=== PATIENT | female | born 1935 | race Caucasian/White ===

== ENCOUNTER 2016-06-13 17:05 | Inpatient (IN) | payer MEDICARE ==
[2016-06-13 19:07] LABS: Aty Lym Flag Slight; CH 27.9; CHCM 34.2; HCT 39.5 % (34.0-46.0); HDW 3.09; MCH 26.8 pg (25.0-35.0); MCHC 32.8 g/dL (31.0-37.0); MCV 81.8 fL (80.0-100.0); Mean Platelet Volume 6.8; RBC 4.83 m/uL (3.80-5.40); RDW 13.4 % (11.5-15.5); WBC (Perox) 2.97
[2016-06-13 19:22] LABS: Add Differential Manual Differential
[2016-06-13 19:24] LABS: Anion Gap 11 mmol/L; Blood Urea Nitrogen 14 mg/dL (7-17); Calcium 8.4 mg/dL (8.4-10.2); Carbon Dioxide 22 mmol/L (22-30); Chloride 103 mmol/L (98-107); Glucose 100 mg/dL (74-99); Non-African American GFR(MDRD) 53 (>60 ml/min/1.73 sqM); Nucleated Red Blood Cells 0 /100 WBC (0-0); Polychromasia Present; Potassium 5.3 mmol/L (3.5-5.1); Sodium 136 mmol/L (137-145); Total Cells Counted 100
[2016-06-13 19:44] LABS: Prothrombin Time >130.0 sec (9.0-12.0)
[2016-06-13 19:45] LABS: INR >10.0 (<1.1); Partial Thromboplastin Time 63.7 sec (22.0-30.0)
[2016-06-13] MEDS ORDERED: PHYTONADIONE ORAL 5 MG/5 ML ORAL.SYRG PO STA ×2 (19:48→23:24)
[2016-06-13] MEDS ORDERED: NALOXONE 0.4 MG/ML 1 ML VIAL IV PRN (21:54)
[2016-06-13] MEDS ORDERED: ALPRAZolam 0.25 MG TAB PO PRN (21:56)
[2016-06-13] MEDS ORDERED: SENNOSIDES-DOCUSATE SODIUM 1 EACH TAB PO PRN (21:56)
[2016-06-13] MEDS ORDERED: FUROSEMIDE 20 MG TAB PO PRN (21:56)
--- NOTE | 2016-06-13 21:57 | ED ---
General Adult HPI - General Chief complaint: Recheck/Abnormal Lab/Rx Stated complaint: abnormal labs Time Seen by Provider: 06/13/16 18:32 Source: patient, family Mode of arrival: wheelchair Limitations: no limitations - History of Present Illness Initial comments: This patient is an 80-year-old woman who presents to be evaluated for her elevated INR. Patient states she had gone for her routine testing and was found to be elevated. She denies having any bleeding. States that she feels about her usual self. -: hour(s) Improves with: none Worsens with: none Associated Symptoms: denies other symptoms - Related Data Home Medications Medication Instructions Recorded Confirmed ALPRAZolam [Xanax] 0.25 mg PO TID PRN 06/13/16 06/13/16 Atenolol [Tenormin] 25 mg PO DAILY 06/13/16 06/13/16 Cranberry Extract [Cranberry] 500 mg PO DAILY 06/13/16 06/13/16 Ergocalciferol [Vitamin D2] 50,000 unit PO WE 06/13/16 06/13/16 Furosemide [Lasix] 20 mg PO DAILY PRN 06/13/16 06/13/16 L.acidoph,Paracasei, B.lactis 1 cap PO DAILY 06/13/16 06/13/16 [Probiotic] Levothyroxine Sodium [Synthroid] 50 mcg PO DAILY 06/13/16 06/13/16 Potassium Chloride ER [K-Dur 20] 20 meq PO DAILY 06/13/16 06/13/16 Sennosides-Docusate Sodium 1 tab PO DAILY PRN 06/13/16 06/13/16 [Senokot-S] Sulfamethox-Tmp 800-160Mg [Bactrim 1 tab PO Q12HR 06/13/16 06/13/16 DS 800-160 mg] Warfarin [Coumadin] 5 mg PO DAILY 06/13/16 06/13/16 Allergies Allergy/AdvReac Type Severity Reaction Status Date / Time Penicillins Allergy Unknown Verified 06/13/16 18:51 steroids Allergy Unknown Uncoded 06/13/16 17:32 Review of Systems ROS Statement: Those systems with pertinent positive or pertinent negative responses have been documented in the HPI. ROS Other: All systems not noted in ROS Statement are negative. Constitutional: Denies: fever, chills Respiratory: Denies: cough, dyspnea Cardiovascular: Denies: chest pain, palpitations, edema Gastrointestinal: Denies: abdominal pain, nausea, vomiting Genitourinary: Denies: dysuria, hematuria Musculoskeletal: Denies: back pain Skin: Denies: rash Neurological: Denies: headache, weakness, numbness Past Medical History Past Medical History: Hypertension, Myocardial Infarction ([place]), Thyroid Disorder Additional Past Medical History / Comment(s): arthritis, sjogrens syndrome History of Any Multi-Drug Resistant Organisms: None Reported Past Surgical History: Hysterectomy, Orthopedic Surgery Past Psychological History: Anxiety, Depression Smoking Status: Never smoker Past Alcohol Use History: None Reported Past Drug Use History: None Reported General Exam Limitations: no limitations General appearance: alert, in no apparent distress Head exam: Present: atraumatic, normocephalic Eye exam: Present: normal appearance. Absent: scleral icterus, conjunctival injection ENT exam: Present: normal oropharynx Respiratory exam: Present: normal lung sounds bilaterally. Absent: respiratory distress, wheezes, rales, rhonchi Cardiovascular Exam: Present: regular rate, normal rhythm, normal heart sounds. Absent: systolic murmur, diastolic murmur, rubs, gallop GI/Abdominal exam: Present: soft. Absent: distended, tenderness, guarding, rebound Extremities exam: Present: normal inspection, normal capillary refill. Absent: pedal edema, calf tenderness Back exam: Absent: CVA tenderness (R), CVA tenderness (L) Neurological exam: Present: alert Skin exam: Present: warm, dry, intact, normal color. Absent: rash Course Vital Signs 06/13/16 06/13/16 06/13/16 17:26 18:39 20:00 Temperature 97.1 F L Pulse Rate 52 L 69 87 Respiratory 18 18 16 Rate Blood Pressure 114/72 116/62 118/68 O2 Sat by Pulse 93 L 93 L 97 Oximetry 06/13/16 06/13/16 21:00 21:53 Temperature 97 F L Pulse Rate 63 65 Respiratory 18 18 Rate Blood Pressure 116/63 111/59 O2 Sat by Pulse 97 99 Oximetry Medical Decision Making - Medical Decision Making Patient is an 80-year-old woman with INR greater than 10. Patient is given initial dose of vitamin K. She is not having any bleeding, will be admitted to ensure no - Lab Data Result diagrams: 06/13/16 18:45 06/13/16 18:45 Lab Results 06/13/16 06/13/16 06/13/16 Range/Units 18:45 18:45 18:45 WBC 3.0 L (3.8-10.6) k/uL RBC 4.83 (3.80-5.40) m/uL Hgb 13.0 (11.4-16.0) gm/dL Hct 39.5 (34.0-46.0) % MCV 81.8 (80.0-100.0) fL MCH 26.8 (25.0-35.0) pg MCHC 32.8 (31.0-37.0) g/dL RDW 13.4 (11.5-15.5) % Plt Count 333 (150-450) k/uL Neutrophils % (Manual) 72.0 % Lymphocytes % (Manual) 23.0 % Monocytes % (Manual) 5.0 % Neutrophils # (Manual) 2.2 (1.3-7.7) k/uL Lymphocytes # (Manual) 0.7 L (1.0-4.8) k/uL Monocytes # (Manual) 0.2 (0-1.0) k/uL Nucleated RBCs 0 (0-0) /100 WBC Polychromasia Present PT >130.0 H (9.0-12.0) sec INR >10.0 H* (<1.1) APTT 63.7 H (22.0-30.0) sec Sodium 136 L (137-145) mmol/L Potassium 5.3 H (3.5-5.1) mmol/L Chloride 103 (98-107) mmol/L Carbon Dioxide 22 (22-30) mmol/L Anion Gap 11 mmol/L BUN 14 (7-17) mg/dL Creatinine 1.00 (0.52-1.04) mg/dL Est GFR (MDRD) Af Amer >60 (>60 ml/min/1.73 sqM) Est GFR (MDRD) Non-Af 53 (>60 ml/min/1.73 sqM) Glucose 100 H (74-99) mg/dL Calcium 8.4 (8.4-10.2) mg/dL Disposition Clinical Impression: Warfarin-induced coagulopathy Disposition: ADMITTED IP TO THIS [facility] Condition: Fair
[2016-06-13 22:24] LABS: Partial Thromboplastin Time 62.8 sec (22.0-30.0)
[2016-06-13 22:36] LABS: Glucose,Whole Blood 90 mg/dL (75-99)
[2016-06-13 22:48] LABS: Prothrombin Time >130.0 sec (9.0-12.0)
[2016-06-13 22:49] LABS: INR >10.0 (<1.1)
[2016-06-13 22:58] VITALS: BMI 29.0
[2016-06-13] MEDS ORDERED: PHYTONADIONE 10 MG in SODIUM CHLORIDE 0.9% 50 ML IVPB STA (23:40)
[2016-06-14] MEDS: SODIUM CHLORIDE 0.9% 1,000 ML IV SCH ×2 (00:35→08:21)
[2016-06-14 05:21] LABS: Aty Lym Flag Slight; CH 27.5; CHCM 33.3; HCT 32.7 % (34.0-46.0); HDW 3.05; HGB 10.5 gm/dL (11.4-16.0); MCH 26.6 pg (25.0-35.0); MCHC 32.1 g/dL (31.0-37.0); MCV 82.9 fL (80.0-100.0); Mean Platelet Volume 6.8; RBC 3.94 m/uL (3.80-5.40); RDW 13.4 % (11.5-15.5); WBC 2.5 k/uL (3.8-10.6); WBC (Perox) 2.73
[2016-06-14 05:29] LABS: INR 2.7 (<1.1); Partial Thromboplastin Time 37.3 sec (22.0-30.0); Prothrombin Time 25.7 sec (9.0-12.0)
[2016-06-14 05:33] LABS: ALT 32 U/L (9-52); AST 22 U/L (14-36); Alkaline Phosphatase 41 U/L (38-126); Anion Gap 6 mmol/L; Blood Urea Nitrogen 12 mg/dL (7-17); Carbon Dioxide 24 mmol/L (22-30); Chloride 104 mmol/L (98-107); Glucose 83 mg/dL (74-99); Magnesium 2.1 mg/dL (1.6-2.3); Non-African American GFR(MDRD) 53 (>60 ml/min/1.73 sqM); Phosphorous 3.7 mg/dL (2.5-4.5); Potassium 4.9 mmol/L (3.5-5.1); Sodium 134 mmol/L (137-145); Total Bilirubin 0.4 mg/dL (0.2-1.3); Total Protein 5.4 g/dL (6.3-8.2)
[2016-06-14 05:44] LABS: Add Differential Manual Differential
[2016-06-14 05:45] LABS: Neutrophils % (A) 2232 %
[2016-06-14 05:48] LABS: Manual Review Performed; Nucleated Red Blood Cells 0 /100 WBC (0-0); Total Cells Counted 200
[2016-06-14 05:49] LABS: Ovalocytes Present; Reactive Lymphocytes Present
[2016-06-14] MEDS ORDERED: PANTOPRAZOLE 40 MG TABLET PO SCH (07:30)
--- NOTE | 2016-06-14 07:41 | XR ---
EXAMINATION TYPE: XR chest 1V DATE OF EXAM: 06/14/2016 6:41 AM CLINICAL HISTORY: Difficulty breathing . TECHNIQUE: Single AP portable upright view of the chest is obtained. COMPARISON: None FINDINGS: Cardiac silhouette size is at the upper limits of normal with atherosclerotic thoracic aor ta. There is some chronic parenchymal change without suspicious focal airspace opacity, pleural effus ion, or pneumothorax seen bilaterally. Osseous structures are demineralized. Multilevel spurring near thoracolumbar junction is present. IMPRESSION: No acute pulmonary process is evident.
[2016-06-14 08:20] VITALS: TEMP 97.3
[2016-06-14] MEDS: ATENOLOL 25 MG TAB PO SCH ×2 (08:21→09:06)
[2016-06-14] MEDS ORDERED: FAMOTIDINE 20 MG TAB PO SCH (09:00)
[2016-06-14] MEDS ORDERED: SULFAMETHOX-TMP 800-160MG 1 EACH TAB PO SCH (09:00)
[2016-06-14] MEDS ORDERED: LACTOBACILLUS ACIDOPH & BULGAR 1 EACH PACKET PO SCH (09:00)
[2016-06-14] MEDS ORDERED: LEVOTHYROXINE 50 MCG TAB PO SCH (09:00)
[2016-06-14] MEDS ORDERED: NON-FORMULARY DRUG (Cranberry Extract [Cranberry] 500 MG) PO SCH (09:00)
[2016-06-14] MEDS ORDERED: POTASSIUM CHLORIDE ER 20 MEQ TAB.ER PO SCH (09:00)
[2016-06-14 12:38] VITALS: RESP 19
--- NOTE | 2016-06-14 13:30 | P.CNPUL ---
History of Present Illness Consult date: 06/14/16 Chief complaint: Coumadin toxicity History of present illness: 80-year-old female patient was asked to come in to the hospital by her primary care physician for a toxic Coumadin level as checked on outpatient basis. The patient was not having any bleeding complications. No headaches. No GI bleed. No epistaxis. No bruising. She presented to the hospital and she was found to have toxic INR at 10. Based on that she was given 10 mg of vitamin K and she was admitted to ICU for further monitoring. This patient tells me that she has been on Coumadin for more than 8 years. This was given to her following a cardiac complication for which was briefly hospitalized and following that she was placed on Coumadin. She is not sure whether she had any problems with atrial fibrillation. More recently, she was seen by econometrics professor Dr. Finn and she was given Bactrim for an underlying urine checked infection. Is very much likely that there was a drug interaction causing this Coumadin toxicity. Patient is doing much better. No respiratory distress. No suprapubic pain or tenderness. No fever or chills. She is back to her baseline and her INR has been reversed. She'll be moved out of the intensive care unit for now. Review of Systems For review of system was done and the positive findings are almost above the history of present illness Past Medical History Past Medical History: Hypertension, Myocardial Infarction ([place]), Thyroid Disorder Additional Past Medical History / Comment(s): Sjgren's disease, coronary artery disease, degenerative arthritis, hypothyroidism, recent urine checked infection for which the patient was given Bactrim, hypertension Last Myocardial Infarction Date:: unsure History of Any Multi-Drug Resistant Organisms: None Reported Past Surgical History: Hysterectomy, Orthopedic Surgery Additional Past Anesthesia/Blood Transfusion Reaction / Comment(s): Pt does not recieve blood products. Past Psychological History: Anxiety, Depression Smoking Status: Never smoker Past Alcohol Use History: None Reported Past Drug Use History: None Reported Medications and Allergies Home Medications Medication Instructions Recorded Confirmed Type ALPRAZolam [Xanax] 0.25 mg PO TID PRN 06/13/16 06/13/16 History Cranberry Extract [Cranberry] 500 mg PO DAILY 06/13/16 06/13/16 History Ergocalciferol [Vitamin D2 50,000 unit PO WE 06/13/16 06/13/16 History (DRISDOL)] L.acidoph,Paracasei, B.lactis 1 cap PO DAILY 06/13/16 06/13/16 History [Probiotic] Levothyroxine Sodium [Synthroid] 50 mcg PO DAILY 06/13/16 06/13/16 History Sennosides-Docusate Sodium 1 tab PO DAILY PRN 06/13/16 06/13/16 History [Senokot-S] Allergies Allergy/AdvReac Type Severity Reaction Status Date / Time Penicillins Allergy Unknown Verified 06/13/16 18:51 steroids Allergy Unknown Uncoded 06/13/16 17:32 Physical Exam Vitals: Vital Signs Temp Pulse Resp BP Pulse Ox 06/14/16 13:00 69 103/60 06/14/16 12:00 58 L 19 98/57 98 06/14/16 11:40 17 06/14/16 11:00 63 17 85/56 98 06/14/16 10:00 73 19 89/52 99 06/14/16 09:00 58 L 89/61 97 06/14/16 08:00 97.3 F L 65 18 93/56 100 06/14/16 07:00 54 L 17 102/59 100 06/14/16 06:00 68 16 98/57 06/14/16 05:00 55 L 24 96/60 100 06/14/16 04:00 98.2 F 55 L 22 98/57 100 06/14/16 03:00 59 L 18 101/51 100 06/14/16 02:10 19 06/14/16 02:00 61 22 96/58 9 L 06/14/16 01:00 60 19 106/61 100 06/14/16 00:00 97.6 F 68 19 101/60 99 06/13/16 23:30 20 06/13/16 23:16 61 20 107/53 99 06/13/16 23:00 97.7 F 63 18 107/53 96 06/13/16 22:32 98 Intake and Output 06/13/16 06/14/16 06/14/16 22:59 06:59 14:59 Intake Total 625 575 Output Total 120 400 200 Balance -120 225 375 Intake: IV 625 575 Sodium Chloride 0.9% 1, 625 575 000 ml @ 125 mls/hr IV . Q8H MELANIE Rx#:[id number] Output: Urine 120 400 200 Other: Voiding Method Bedside Commode Bedside Commode # Voids 1 1 # Bowel Movements 1 Weight 74.3 kg 74.3 kg 74.3 kg Patient Weight 06/15/16 06:59 Weight 74.3 kg The patient appeared well nourished and normally developed. Vital signs as documented. Head exam is unremarkable. No scleral icterus or corneal arcus noted. Neck is without jugular venous distension, thyromegaly, or carotid bruits. Carotid upstrokes are brisk bilaterally. Lungs are clear to auscultation and percussion. Cardiac exam reveals the PMI to be normally sized and situated. Rhythm is regular. First and second heart sounds normal. No murmurs, rubs or gallops. Abdominal exam reveals normal bowel sounds, no masses , no organomegaly and no aortic enlargement. Extremities are nonedematous and both femoral and pedal pulses are normal. Results - Laboratory Findings CBC and BMP: 06/14/16 04:15 06/14/16 04:15 PT/INR, D-dimer PT 25.7 sec (9.0-12.0) H 06/14/16 04:15 INR 2.7 (<1.1) 06/14/16 04:15 Abnormal lab findings: Abnormal Labs 06/13/16 06/14/16 06/14/16 22:03 04:15 04:15 WBC 2.5 L Hgb 10.5 L Hct 32.7 L Lymphocytes # (Manual) 0.6 L PT >130.0 H 25.7 H INR >10.0 H* APTT 62.8 H 37.3 H Sodium Calcium Total Protein Albumin 06/14/16 04:15 WBC Hgb Hct Lymphocytes # (Manual) PT INR APTT Sodium 134 L Calcium 8.0 L Total Protein 5.4 L Albumin 2.4 L - Diagnostic Findings Chest x-ray: image reviewed Assessment and Plan Plan: Impression 1 Coumadin toxicity probably due to interaction between antibiotics and warfarin and the patient came in with a supratherapeutic INR which was subsequently reversed in her current INR is down to 2.7. I realize that there is a hemoglobin dropped down to 10.5. The patient is not showing any signs of external or internal bleeding. We'll continue monitoring the hemoglobin. INR is down to 2.7 2 coronary artery disease with a previous PR 3 Sjogren's disease 4 hypothyroidism 5 chronic anxiety/depression 6 degenerative arthritis Plan Hold warfarin for now. Monitor PT/INR. Monitor hemoglobin. Transfer this patient out of the intensive care unit. Check urine analysis and urine culture to make sure there is no ongoing UTI for now. Antibiotics will be used only if needed.
[2016-06-14 15:29] VITALS: BP 126/62; PULSE 108
--- NOTE | 2016-06-14 17:18 | HP ---
H&P AND DISCHARGE SUMMARY DATE OF ADMISSION: Patient is an 80-year-old female who came in with an elevated INR. Patient does not have any GI bleed. Patient was started on Bactrim for a urinary tract infection. Patient is almost done with a 6-day course. Patient will not need any more antibiotic. Patient has multiple other medical issues going on. Patient appears to be in atrial fibrillation, because of which patient is on atenolol, although her blood pressure is low. I counseled her how to appropriately check her blood pressure. Apparently patient's blood pressure is within normal limits at home, which I believe is secondary to ( ) measurements and ( ) secondary to the blood pressure machine. I counseled her how to check the blood pressure appropriately. Atenolol will be discontinued and patient will be started on metoprolol, which has minimal effect on the blood pressure. Equivalent dosage is 25 b.i.d. Patient is taking 25 daily of atenolol at home ( ) 25 b.i.d. of metoprolol. Patient also is taking Lasix; however, denied any ( ) congestive heart failure. Patient does have peripheral edema with chronic ( ) because of which patient does have Lasix. Because of the very low blood pressure which started going to 85, I discontinued Lasix as well and patient is mildly hyponatremic. ( ) Bactrim as well as Lasix. Since I am discontinuing Lasix, I am also discontinuing potassium. Patient denied any fever or chills. Patient denied any cough or shortness of breath, orthopnea, PND. REVIEW OF SYSTEMS: CONSTITUTIONAL: No fever, no malaise, no fatigue. HEENT: No recent visual problems or hearing problems. Denied any sore throat. CARDIOVASCULAR: No chest pain, orthopnea, PND, no palpitations, no syncope. PULMONARY: No shortness of breath, no cough, no hemoptysis. GASTROINTESTINAL: No diarrhea, no nausea, no vomiting, no abdominal pain. Normoactive bowel sounds. NEUROLOGICAL: No headaches, no weakness, no numbness. HEMATOLOGICAL: Denies any bleeding or petechiae. GENITOURINARY: Denies any burning micturition, frequency, or urgency. MUSCULOSKELETAL/RHEUMATOLOGICAL: Denies any joint pain, swelling, or any muscle pain. ENDOCRINE: Denies any polyuria or polydipsia. The rest of the 14 point review of systems is negative. Home medications include: 1. Alprazolam. 2. Atenolol. 3. Cranberry juice. 4. Ergocalciferol. 5. Lasix. 6. Lactobacillus acidophilus. 7. Levothyroxine. 8. Potassium chloride. 9. Senna. 10. Bactrim. 11. Coumadin 5 mg. ALLERGIES: PENICILLINS AND STEROIDS. PAST MEDICAL HISTORY: 1. Hypertension. 2. Myocardial infarction. 3. Possible atrial fibrillation. 4. Hypothyroidism. 5. Recently diagnosed Sjogren's. 6. Hysterectomy. 7. Orthopedic surgery. 8. Osteoarthritis. 9. Depression. 10. Anxiety. SOCIAL HISTORY: Denied any smoking, alcohol abuse or any drug abuse. ( ) significant for family history of hypertension. PHYSICAL EXAMINATION: VITAL SIGNS: Temperature 97.1, pulse of 69, respiratory rate of 18. Blood pressure is 118/62. Saturating at 93% on room air. GENERAL: The patient is alert and oriented x3, not in any acute distress. Well developed, well nourished. HEENT: Pupils are round and equally reacting to light. EOMI. No scleral icterus. No conjunctival pallor. Normocephalic, atraumatic. No pharyngeal erythema. No thyromegaly. CARDIOVASCULAR: S1 and S2 present. No murmurs, rubs, or gallops. PULMONARY: Chest is clear to auscultation, no wheezing or crackles. ABDOMEN: Soft, nontender, nondistended, normoactive bowel sounds. No palpable organomegaly. MUSCULOSKELETAL: No joint swelling or deformity. EXTREMITIES: No cyanosis, clubbing, or pedal edema. NEUROLOGICAL: Gross neurological examination did not reveal any focal deficits. SKIN: No rashes. LABORATORY DATA: INR was about 10 when she came in. Potassium was 5.3, chloride of 136, BUN of 14, creatinine 1.0. CBC essentially within normal limits. ASSESSMENT AND PLAN: 1. Coumadin toxicity in the ER related to antibiotic that is Bactrim. Bactrim is being discontinued, as patient completed the course of antibiotic for urinary tract infection. 2. Mild hyponatremia secondary to Lasix and Bactrim continued, both of which will be discontinued. 3. Patient was advised to use compression socks. Potassium will be discontinued as well as those medications mentioned above. 4. ( ) change metoprolol for the above-mentioned reasons. Continue with anticoagulation with Coumadin. 5. Anxiety, depression. 6. Hypothyroidism. 7. Hypotension due above-mentioned reasons. Patient will be discharged today in stable condition. ( ) discharge summary. Patient will be asked to follow up ( ) INR in 2 days and 5 days and patient's Coumadin will be decreased to 3 mg. DISCHARGE DIET: Cardiac and Coumadin diet. Activity as tolerated. This dictation is both H&P and discharge summary.
[2016-06-15] MEDS ORDERED: FAMOTIDINE 20 MG TAB PO SCH (09:00)
[2016-06-19] MEDS ORDERED: ERGOCALCIFEROL 50,000 UNIT CAP PO SCH (21:56)
== END 2016-06-14 16:03 | disposition home health service (06) | DRG 918 ==
LOC: EC 17:05 → 6ICU 21:54
PROVIDERS: ADMIT Hospitalist; ATTEND Hospitalist
DX: T45.515A Adverse effect of anticoagulants, initial encounter (principal); E87.1 Hypo-osmolality and hyponatremia; I95.9 Hypotension, unspecified; I48.91 Unspecified atrial fibrillation; M35.00 Sjogren syndrome, unspecified; I10 Essential (primary) hypertension; E03.9 Hypothyroidism, unspecified; T37.0X5A Adverse effect of sulfonamides, initial encounter; T50.1X5A Adverse effect of loop [high-ceiling] diuretics, initial encounter; F32.9 Major depressive disorder, single episode, unspecified; F41.9 Anxiety disorder, unspecified; I25.10 Atherosclerotic heart disease of native coronary artery without angina pectoris; I25.2 Old myocardial infarction; M19.90 Unspecified osteoarthritis, unspecified site; R79.1 Abnormal coagulation profile; Z82.49 Family history of ischemic heart disease and other diseases of the circulatory system; Y92.009 Unspecified place in unspecified non-institutional (private) residence as the place of occurrence of the external cause
CPT/HCPCS: 36415; 71010; 80048; 80053; 83735; 84100; 85025; 85610; 85730; 99284

== ENCOUNTER 2016-06-17 18:24 | Inpatient (IN) | payer MEDICARE ==
[2016-06-17] MEDS ORDERED: DILTIAZEM 5 MG/ML 5 ML VIAL IVP STA ×2 (18:32→19:37)
[2016-06-17] MEDS ORDERED: SODIUM CHLORIDE 0.9% 1,000 ML IV STA (18:32)
--- NOTE | 2016-06-17 18:52 | ED ---
General Adult HPI - General Chief complaint: Arrhythmia/Palpitations Stated complaint: heart racing Time Seen by Provider: 06/17/16 18:32 Source: patient, RN notes reviewed, old records reviewed Mode of arrival: wheelchair Limitations: no limitations - History of Present Illness Initial comments: This is an 80-year-old female here for evaluation of arrhythmia and palpitations , patient was seen and evaluated earlier today and found to be in A. fib with RVR. He has history of A. fib with RVR is anticoagulated, feels of shortness of breath and weakness. No nausea no vomiting no diarrhea, taking Amitiza, no recent fevers. No chest pain. Patient has no recent travel history or sick contacts. - Related Data Home Medications Medication Instructions Recorded Confirmed ALPRAZolam [Xanax] 0.25 mg PO TID PRN 06/13/16 06/17/16 Cranberry Extract [Cranberry] 500 mg PO DAILY 06/13/16 06/17/16 Ergocalciferol [Vitamin D2 50,000 unit PO WE 06/13/16 06/17/16 (DRISDOL)] L.acidoph,Paracasei, B.lactis 1 cap PO DAILY 06/13/16 06/17/16 [Probiotic] Levothyroxine Sodium [Synthroid] 50 mcg PO DAILY 06/13/16 06/17/16 Sennosides-Docusate Sodium 1 tab PO DAILY PRN 06/13/16 06/17/16 [Senokot-S] Previous Rx's Medication Instructions Recorded Metoprolol Tartrate [Lopressor] 25 mg PO BID #60 tablet 06/14/16 Warfarin [Coumadin] 3 mg PO DAILY #30 tab 06/14/16 Allergies Allergy/AdvReac Type Severity Reaction Status Date / Time Penicillins Allergy Unknown Verified 06/17/16 19:02 steroids Allergy Unknown Uncoded 06/17/16 18:30 Review of Systems ROS Statement: Those systems with pertinent positive or pertinent negative responses have been documented in the HPI. ROS Other: All systems not noted in ROS Statement are negative. Past Medical History Past Medical History: Hypertension, Myocardial Infarction ([place]), Thyroid Disorder Additional Past Medical History / Comment(s): Sjgren's disease, coronary artery disease, degenerative arthritis, hypothyroidism, recent urine checked infection for which the patient was given Bactrim, hypertension Last Myocardial Infarction Date:: unsure History of Any Multi-Drug Resistant Organisms: None Reported Past Surgical History: Hysterectomy, Orthopedic Surgery Additional Past Anesthesia/Blood Transfusion Reaction / Comment(s): Pt does not recieve blood products. Past Psychological History: Anxiety, Depression Smoking Status: Never smoker Past Alcohol Use History: None Reported Past Drug Use History: None Reported General Exam Limitations: no limitations General appearance: alert, anxious Head exam: Present: atraumatic, normocephalic, normal inspection Eye exam: Present: normal appearance, PERRL, EOMI. Absent: scleral icterus, conjunctival injection, periorbital swelling ENT exam: Present: normal exam, mucous membranes moist Neck exam: Present: normal inspection. Absent: tenderness, meningismus, lymphadenopathy Respiratory exam: Present: normal lung sounds bilaterally. Absent: respiratory distress, wheezes, rales, rhonchi, stridor Cardiovascular Exam: Present: tachycardia, irregular rhythm, normal heart sounds. Absent: systolic murmur, diastolic murmur, rubs, gallop, clicks GI/Abdominal exam: Present: soft, normal bowel sounds. Absent: distended, tenderness, guarding, rebound, rigid Extremities exam: Present: normal inspection, full ROM, normal capillary refill. Absent: tenderness, pedal edema, joint swelling, calf tenderness Back exam: Present: normal inspection Neurological exam: Present: alert, oriented X3, CN II-XII intact Psychiatric exam: Present: normal affect, normal mood Skin exam: Present: warm, dry, intact, normal color. Absent: rash Course Vital Signs 06/17/16 06/17/16 18:26 18:53 Temperature 98.2 F Pulse Rate 121 H 120 H Pulse Rate [ 120 H Bilateral Radial] Respiratory 20 18 Rate Blood Pressure 127/82 94/54 O2 Sat by Pulse 93 L 99 Oximetry - Reevaluation(s) Reevaluation #1: 06/17/16 19:30 Signed to achieve moderate control with patient EKG Findings - EKG Comments: EKG Findings:: EKG shows A. fib with RVR a 153, QRS 60, QTc 456 Medical Decision Making - Medical Decision Making Aortic female here for evaluation of shortness of breath, patient in A. fib with RVR, admitted for rate control, continue anticoagulation, monitoring of cardiopulmonary status - Lab Data Result diagrams: 06/17/16 18:46 06/17/16 18:46 Lab Results 06/17/16 06/17/16 06/17/16 Range/Units 18:46 18:46 18:46 WBC 3.5 L (3.8-10.6) k/uL RBC 4.30 (3.80-5.40) m/uL Hgb 11.6 (11.4-16.0) gm/dL Hct 35.4 (34.0-46.0) % MCV 82.2 (80.0-100.0) fL MCH 27.0 (25.0-35.0) pg MCHC 32.8 (31.0-37.0) g/dL RDW 14.6 (11.5-15.5) % Plt Count 291 (150-450) k/uL Neutrophils % 75 % Lymphocytes % 17 % Monocytes % 5 % Eosinophils % 1 % Basophils % 1 % Neutrophils # 2.6 (1.3-7.7) k/uL Lymphocytes # 0.6 L (1.0-4.8) k/uL Monocytes # 0.2 (0-1.0) k/uL Eosinophils # 0.1 (0-0.7) k/uL Basophils # 0.0 (0-0.2) k/uL PT 14.7 H (9.0-12.0) sec INR 1.5 (<1.1) APTT 26.9 (22.0-30.0) sec Sodium 138 (137-145) mmol/L Potassium 4.1 (3.5-5.1) mmol/L Chloride 105 (98-107) mmol/L Carbon Dioxide 23 (22-30) mmol/L Anion Gap 10 mmol/L BUN 11 (7-17) mg/dL Creatinine 0.81 (0.52-1.04) mg/dL Est GFR (MDRD) Af Amer >60 (>60 ml/min/1.73 sqM) Est GFR (MDRD) Non-Af >60 (>60 ml/min/1.73 sqM) Glucose 90 (74-99) mg/dL Calcium 8.4 (8.4-10.2) mg/dL Phosphorus 3.4 (2.5-4.5) mg/dL Magnesium 1.9 (1.6-2.3) mg/dL Total Bilirubin 0.7 (0.2-1.3) mg/dL AST 19 (14-36) U/L ALT 29 (9-52) U/L Alkaline Phosphatase 56 (38-126) U/L Total Protein 6.5 (6.3-8.2) g/dL Albumin 2.8 L (3.5-5.0) g/dL - Radiology Data Radiology results: report reviewed (Chest x-ray two-view is negative for acute disease), image reviewed Critical Care Time Critical Care Time: Yes Total Critical Care Time: 31 Disposition Clinical Impression: Atrial fibrillation with RVR Disposition: ADMITTED IP TO THIS HOSP Condition: Fair Referrals: Nonstaff,Physician [Primary Care Provider] - 1-2 days
[2016-06-17 19:05] LABS: Basophils % (A) 1 %; CHCM 34.3; Eosinophils # (A) 0.1 k/uL (0-0.7); Eosinophils % (A) 1 %; HCT 35.4 % (34.0-46.0); HDW 3.24; HGB 11.6 gm/dL (11.4-16.0); Luc # (Auto) 0.07; Luc % (Auto) 2; Lymphocytes # (A) 0.6 k/uL (1.0-4.8); Lymphocytes % (A) 17 %; MCHC 32.8 g/dL (31.0-37.0); MCV 82.2 fL (80.0-100.0); Mean Platelet Volume 7.3; Monocytes # (A) 0.2 k/uL (0-1.0); Monocytes % (A) 5 %; Neutrophils # (A) 2.6 k/uL (1.3-7.7); Neutrophils % (A) 75 %; RDW 14.6 % (11.5-15.5); WBC 3.5 k/uL (3.8-10.6); WBC (Perox) 3.35
[2016-06-17 19:17] LABS: INR 1.5 (<1.1); Partial Thromboplastin Time 26.9 sec (22.0-30.0); Prothrombin Time 14.7 sec (9.0-12.0)
[2016-06-17 19:22] LABS: ALT 29 U/L (9-52); AST 19 U/L (14-36); Alkaline Phosphatase 56 U/L (38-126); Anion Gap 10 mmol/L; Blood Urea Nitrogen 11 mg/dL (7-17); Calcium 8.4 mg/dL (8.4-10.2); Carbon Dioxide 23 mmol/L (22-30); Chloride 105 mmol/L (98-107); Glucose 90 mg/dL (74-99); Magnesium 1.9 mg/dL (1.6-2.3); Non-African American GFR(MDRD) >60 (>60 ml/min/1.73 sqM); Phosphorous 3.4 mg/dL (2.5-4.5); Potassium 4.1 mmol/L (3.5-5.1); Sodium 138 mmol/L (137-145); Total Bilirubin 0.7 mg/dL (0.2-1.3); Total Protein 6.5 g/dL (6.3-8.2)
[2016-06-17 19:31] LABS: Creatine Kinase 31 U/L (30-135)
[2016-06-17] MEDS ORDERED: ASPIRIN 81 MG CHEW PO STA (19:31)
[2016-06-17] MEDS ORDERED: NITROGLYCERIN SL TABS 0.4 MG TAB SUBLINGUAL PRN (19:31)
[2016-06-17] MEDS ORDERED: DILTIAZEM 125 MG in SODIUM CHLORIDE 0.9% 100 ML IV ONE (19:37)
[2016-06-17 19:45] LABS: Creatine Kinase MB 0.7 ng/mL (0.0-2.4); Troponin I <0.012 ng/mL (0.000-0.034)
[2016-06-17] MEDS: SODIUM CHLORIDE 0.9% 1,000 ML IV SCH (19:53)
--- NOTE | 2016-06-17 19:56 | XR ---
EXAMINATION TYPE: XR chest 1V portable DATE OF EXAM: 06/17/2016 7:50 PM COMPARISON: 06/14/2016 HISTORY: Chest pain TECHNIQUE: Single frontal view of the chest is obtained. FINDINGS: Heart and mediastinum are normal. There is a small linear density at the left lung base. T here are no hilar masses. There are chest leads. Costophrenic angles are clear. IMPRESSION: Mild subsegmental atelectasis at the left lung base is increased slightly compared to ol d exam. Normal heart.
[2016-06-17 20:49] LABS: Appearance,Urine Clear (Clear); Bilirubin,Urine Negative (Negative); Glucose,Urine (UA) Negative (Negative); Ketones,Urine Negative (Negative); Leukocyte Esterase,Urine Negative (Negative); Nitrite,Urine Negative (Negative); PH, Urine 5.5 (5.0-8.0); Protein,Urine Negative (Negative); Specific Gravity,Urine 1.004 (1.001-1.035); UA Billing (MACRO vs. MICRO) CHEM; Urobilinogen,Urine <2.0 mg/dL (<2.0)
[2016-06-17] MEDS ORDERED: ALPRAZolam 0.25 MG TAB PO PRN (22:14)
[2016-06-17] MEDS: WARFARIN 3 MG TAB PO SCH (23:04)
[2016-06-18 01:09] LABS: Creatine Kinase 25 U/L (30-135)
[2016-06-18 01:23] LABS: Creatine Kinase MB 0.6 ng/mL (0.0-2.4); Troponin I <0.012 ng/mL (0.000-0.034)
[2016-06-18 04:55] VITALS: BMI 29.5
[2016-06-18] MEDS: LEVOTHYROXINE 50 MCG TAB PO SCH (06:19)
[2016-06-18] MEDS: SODIUM CHLORIDE 0.9% 1,000 ML IV SCH ×2 (06:22→18:29)
--- NOTE | 2016-06-18 06:38 | HP ---
DATE OF ADMISSION: CHIEF COMPLAINT: Arrhythmia, palpitations. HISTORY OF PRESENT ILLNESS: This 80-year-old white female admitted with arrhythmia, palpitations, admitted with A. fib with rapid ventricular response. She has a history of A. fib, anticoagulated. She was in the ER a few days ago for significant elevated INR secondary to Bactrim treatment for UTI and Neurontin. She has been lightheaded and dizzy from taking 300 mg of Neurontin from a continuous drier helper. No nausea, vomiting, diarrhea. She is taking ( ) for constipation. No recent travel or sick contacts. Medications at home include: 1. Xanax 0.25 t.i.d. 2. Cranberry extract. 3. Vitamin D. 4. Lactobacillus. 5. Synthroid 50. 6. Senokot. Allergies are to PENICILLIN and STEROIDS. REVIEW OF SYSTEMS: PSYCH: She has been depressed taking recent steroid treatment for possible PMR, although a slow was given. Her suicidal ideation was just started on a low-dose antidepressant to treatment steroid-induced depression. CARDIAC: As mentioned above. PULMONARY: Negative. VASCULAR: Negative. IMMUNE: Negative. INTEGUMENT: Negative. OPHTHALMOLOGIC: Negative. : Negative. STEM ROLLER: Negative. PAST MEDICAL HISTORY: Hypertension, myocardial infarction, thyroid disorder, degenerative arthritis, coronary artery disease, Sjogren disease, hypothyroidism. SURGERIES: Hysterectomy, orthopedic surgery. Anxiety, depression. No smoking. No alcohol. No illicit drugs. PHYSICAL EXAM: VITAL SIGNS: Stable. PSYCH EXAM: She appears alert and anxious. HEAD: Normocephalic, atraumatic. OPHTHALMOLOGIC: Pupils equal, round and react to light and accommodation. ENT: External ear canals within normal limits. NECK: No mass. No adenopathy. LUNGS: Show clear. No rales, rhonchi or wheezing. CARDIAC: Irregular, irregular rhythm. Heart rates in the 120s on admission, currently around 90 on Cardizem drip. GI: Soft, nontender. No mass or organomegaly. MUSCULOSKELETAL: She has possible scoliosis, tenderness to palpation cervical and lumbar spinal muscles. NEUROLOGIC: Alert and oriented x3. PSYCHIATRIC: Fair mood and affect. SKIN: No rash, excoriation, bruising. Temp 98.2, blood pressure is 127/82, respiratory rate 18 to 20, O2 sat is 99% on 2 L. Admission labs showed normal sodium and potassium. BUN 11 and creatinine 0.81. White count 3.5, hemoglobin 11.6. ASSESSMENT: 1. Acute shortness of breath. 2. Atrial fibrillation with rapid ventricular response. 3. History of atherosclerotic heart disease. 4. Hypertension. 5. Hypothyroidism. Check thyroid disorder. LABS: Started on Cardizem drip. Do a D-dimer. She has moderate protein calorie malnutrition. Dietary consult will be done. Await cardiology recommendations in the morning. Echo has been ordered.
[2016-06-18 08:35] LABS: INR 1.6 (<1.1); Prothrombin Time 15.4 sec (9.0-12.0)
[2016-06-18] MEDS: METOPROLOL TARTRATE 25 MG TAB PO SCH ×2 (08:39→18:28)
[2016-06-18] MEDS: ASPIRIN 325 MG TAB PO SCH (08:40)
[2016-06-18 08:42] LABS: Cholesterol 104 mg/dL (<200); HDL Cholesterol 29 mg/dL (40-60); Triglycerides 81 mg/dL (<150)
[2016-06-18 08:45] LABS: Creatine Kinase 21 U/L (30-135)
[2016-06-18 08:58] LABS: Creatine Kinase MB 0.4 ng/mL (0.0-2.4); Troponin I <0.012 ng/mL (0.000-0.034)
[2016-06-18] MEDS: ACETAMINOPHEN TAB 325 MG TAB PO PRN (09:17)
--- NOTE | 2016-06-18 09:40 | ECHOF ---
Referral Reason:dyspnea MEASUREMENTS -------- HEIGHT: 160.0 cm WEIGHT: 75.3 kg BP: 115/63 IVSd: 0.8 cm (0.6 - 1.1) LVIDd: 2.5 cm (3.9 - 5.3) LVPWd: 1.4 cm (0.6 - 1.1) IVSs: 1.3 cm LVIDs: 1.3 cm LVPWs: 1.1 cm LAESV Index (A-L): 21.51 ml/m Ao Diam: 3.0 cm (2.0 - 3.7) AV Cusp: 1.9 cm (1.5 - 2.6) LA Diam: 3.8 cm (2.7 - 3.8) AV maxP.17 mmHg AV meanP.51 mmHg RAP: 5.00 mmHg RVSP: 25.18 mmHg FINDINGS -------- Atrial fibrillation. This was a technically good study. There is mild concentric left ventricular hypertrophy. Overall left ventricular systolic function is normal with, an EF between 60 - 65 %. The right ventricle is normal in size and function. Normal LA size by volume 22+/-6 ml/m2. The right atrium is normal in size. Aortic valve is trileaflet and is mildly thickened. The mitral valve leaflets are mildly thickened. Mild mitral regurgitation is present. Mild tricuspid regurgitation present. The right ventricular systolic pressure, as measured by Doppler, is 25.18mmHg. Pulmonic valve appears structurally normal. The aortic root size is normal. The pericardium is normal. CONCLUSIONS -------- 1. Atrial fibrillation. 2. Mild mitral regurgitation is present. 3. Mild tricuspid regurgitation present. 4. The right ventricular systolic pressure, as measured by Doppler, is 25.18mmHg. 5. Pulmonic valve appears structurally normal. 6. The aortic root size is normal. 7. The pericardium is normal. 8. This was a technically good study. 9. There is mild concentric left ventricular hypertrophy. 10. Overall left ventricular systolic function is normal with, an EF between 60 - 65 %. 11. The right ventricle is normal in size and function. 12. Normal LA size by volume 22+/-6 ml/m2. 13. The right atrium is normal in size. 14. Aortic valve is trileaflet and is mildly thickened. 15. The mitral valve leaflets are mildly thickened. CARPENTRY PROFESSIONAL: Araceli Cruz RDCS
--- NOTE | 2016-06-18 11:21 | CONS ---
DATE OF CONSULTATION: Tabitha is an 80-year-old lady with history of paroxysmal atrial fibrillation, hypertension and hypothyroidism who is admitted to hospital with atrial fibrillation with rapid ventricular rate. She was at her primary care physician's office for routine evaluation, was found to have elevated heart rate, went on to have an EKG and then subsequently is admitted to hospital. At the time of my evaluation this morning, she is free of any symptoms. Heart rate is still in the 120s. She is on IV Cardizem. Past medical history is significant for atrial fibrillation and hypertension. Medications include Coumadin, metoprolol 25 b.i.d., Synthroid, Senokot, cranberry, Xanax and vitamin D. ALLERGIES: Allergic to PENICILLIN and STEROIDS. Family history is negative for premature coronary artery disease. SOCIAL HISTORY: Negative for smoking, EtOH abuse or drug abuse. REVIEW OF SYSTEMS: HEENT: Unremarkable. CARDIAC: As described above. RESPIRATORY: Negative. GI: Negative. GENITOURINARY: Negative. ALLERGY/IMMUNOLOGY: Negative. MUSCULOSKELETAL: Significant for arthritis. PSYCHOSOCIAL: Negative. ENDOCRINE: Negative. HEMATOLOGICAL: Negative. DERM: Negative. CONSTITUTIONAL: Negative. The rest of the system review is not relevant. On exam, she is comfortable at rest, afebrile. Heart rate is 120 beats per minute, irregular, irregular. Blood pressure is 115/63, respirations 18. Chest exam reveals good air entry bilaterally. Heart exam reveals first and second heart sounds, irregular rhythm. No murmur. Abdomen is soft, nontender. Exam of the extremities did not reveal any edema. Peripheral pulses are palpable. Labs show that INR is subtherapeutic at 1.6. Three sets of tropes are negative. Creatinine is 0.8. Potassium is 4.1. EKG shows atrial fibrillation with a poorly controlled ventricular rate. She had an echo in February 2015 that was normal. Stress test at the same time that was unremarkable. ASSESSMENT: Chronic atrial fibrillation with rapid ventricular rate. PLAN: I am going to try and see if I can convert her to Eliquis, if she is covered for it and start her on amiodarone because of A. fib with RVR, both rhythm suppression and rate control.
[2016-06-18] MEDS ORDERED: AMIODARONE 200 MG TAB PO STA (13:02)
--- NOTE | 2016-06-18 15:31 | P.PN ---
Subjective 80-year-old female being seen on rounds. Patient was admitted to the hospital with symptomatic atrial fibrillation with a rapid ventricular response. Patient 's been seen by cardiology service. Patient currently is denying chest pain. The heart rate is at 1 02/10/2020 and patient is on IV Cardizem Echocardiogram obtained showed left ventricular systolic function normal EF between 60 and 65%. Objective - Vital Signs Vital signs: Vital Signs Temp 97.0 F L 06/18/16 11:00 Pulse 99 06/18/16 12:00 Resp 20 06/18/16 12:00 BP 120/60 06/18/16 11:00 Pulse Ox 96 06/18/16 11:00 Intake & Output 06/17/16 06/18/16 06/18/16 18:59 06:59 18:59 Intake Total 120 Output Total 550 200 Balance -550 -80 Weight 75.7 kg 75.7 kg Intake: Oral 120 Output: Urine 550 200 Other: Voiding Method Toilet # Voids 1 - Exam Physical exam 80-year-old female sitting up in bed appears in no acute distress Lungs essentially clear adequate air movement Heart S1-S2 audible irregular monitor atrial fibrillation rate 110 denying heart palpitation denying chest pain Abdomen soft nontender Extremities no edema - Labs CBC & Chem 7: 06/17/16 18:46 06/17/16 18:46 Labs: Abnormal Lab Results - Last 24 Hours (Table) 06/18/16 06/18/16 06/18/16 Range/Units 00:16 00:18 07:15 PT (9.0-12.0) sec D-Dimer 1.30 H (<0.60) mg/L FEU Total Creatine Kinase 25 L 21 L (30-135) U/L HDL Cholesterol (40-60) mg/dL 06/18/16 06/18/16 Range/Units 07:15 07:15 PT 15.4 H (9.0-12.0) sec D-Dimer (<0.60) mg/L FEU Total Creatine Kinase (30-135) U/L HDL Cholesterol 29 L (40-60) mg/dL Assessment and Plan Plan: Impression Present on admission heart palpitation shortness of breath suspect due to atrial fibrillation with RVR History of atrial fibrillation with prior episodes of RVR Hypothyroid on supplements Subtherapeutic INR 1.5 on admission A recent admission to the emergency room with a significant only elevated INR coagulopathy likely due to Bactrim treatment for UTI and Neurontin Echocardiogram left ventricular systolic function normal EF 60-65% done on June 18 Hypertension Arthroscopic heart disease Plan Continue recommendations by cardiology service Home meds as appropriate resume DVT and GI prophylaxis For the recommendations pending will follow Repeat labs in the morning The above dictated assessment and findings were discussed with dr villalobos . Impression and the plan of care have been dictated as directed. Barb Abdullahi nurse practitioner acting as a scribe for dr villalobos
[2016-06-18] MEDS: WARFARIN 3 MG TAB PO SCH (18:30)
[2016-06-18] MEDS: AMIODARONE 200 MG TAB PO SCH (21:53)
[2016-06-19] MEDS: METOPROLOL TARTRATE 25 MG TAB PO SCH ×3 (06:14→22:23)
[2016-06-19] MEDS: SODIUM CHLORIDE 0.9% 1,000 ML IV SCH ×3 (06:14→23:19)
[2016-06-19] MEDS: LEVOTHYROXINE 50 MCG TAB PO SCH (06:14)
[2016-06-19 06:29] LABS: INR 1.7 (<1.1); Prothrombin Time 16.3 sec (9.0-12.0)
[2016-06-19] MEDS ORDERED: RX INFO: IV CONTRAST WAS GIVEN 1 EACH MISC MISCELLANE PRN (06:41)
[2016-06-19] MEDS: AMIODARONE 200 MG TAB PO SCH ×2 (09:11→22:22)
[2016-06-19] MEDS: ASPIRIN 325 MG TAB PO SCH (09:12)
[2016-06-19] MEDS ORDERED: APIXABAN 5 MG TAB PO SCH (11:30)
--- NOTE | 2016-06-19 12:02 | NM ---
EXAMINATION TYPE: NM pul vent and perfuse DATE OF EXAM: 06/19/2016 11:54 AM COMPARISON: Correlation radiographs 06/17/2016 HISTORY: 80 year-old female elevated d-dimer, shortness of breath TECHNIQUE: Utilizing inhalation of 65.1 mCi Tc 99m DTPA aerosol and intravenous injection of 5.1 mCi of Tc 99m MAA, ventilation and perfusion images are acquired post injection in multiple projections. FINDINGS: Mild heterogeneity of ventilation and perfusion throughout the lungs. Some inhaled tracer within the central airways noted. There is no evidence of mismatch perfusion defect. IMPRESSION: Low probability for pulmonary embolus. Some retained tracer within the central airways can be seen in the setting of COPD. Clinically correlate.
--- NOTE | 2016-06-19 13:25 | PN ---
Tabitha is an 80-year-old lady who was admitted to hospital with atrial fibrillation with rapid ventricular rate. We started her on amiodarone 400 b.i.d. Remains in A. fib with still poorly controlled ventricular rate. We increase her Lopressor dose to 25 t.i.d. We stopped the Coumadin and we started her on Eliquis 2.5 b.i.d. Patient is feeling better, had a V/Q scan that was low probability for pulmonary embolism. On exam, patient is afebrile. Heart rate is 100 beats, blood pressure 101/70, respiratory rate is 18. There is no jugular venous distention. Carotid upstroke is normal. There is no bruit. Chest exam reveals good air entry bilaterally. Heart exam reveals first and second heart sounds, irregular rhythm. ABDOMEN: Soft. Exam of the extremities did not reveal any edema. Peripheral pulses are felt. ASSESSMENT: Atrial fibrillation with poorly controlled ventricular rate. PLAN: We will continue with the metoprolol, amiodarone and Eliquis. She had a V/Q scan that was low probability. I am hoping that I can discharge her home tomorrow and consider an outpatient cardioversion.
--- NOTE | 2016-06-19 14:49 | P.PN ---
Subjective 80-year-old female being seen on rounds. Early states breathing feels slightly improved. Patient was admitted to the emergency room with a episode of shortness of breath found to be in atrial fibrillation with a rapid ventricular response. Patient currently is in A. fib with variable ventricular response. Patients being followed by cardiology service. Patient's been started on a elquist 2.5 twice a day Coumadin has been stopped and Lopressor increased to 25 3 times a day. Patient did have a VQ scan done showed low probability. Cardiology indicate the patient possibly could go home the next 24 hours and consider doing an outpatient cardioversion at that time Objective - Vital Signs Vital signs: Vital Signs Temp 97.0 F L 06/19/16 12:10 Pulse 102 H 06/19/16 12:10 Resp 20 06/19/16 12:10 BP 109/71 06/19/16 12:10 Pulse Ox 95 06/19/16 12:10 Intake & Output 06/18/16 06/19/16 06/19/16 18:59 06:59 18:59 Intake Total 360 1100 Output Total 200 200 Balance 160 -200 1100 Weight 75.7 kg 78.1 kg Intake: Intake, IV Titration 800 Amount Sodium Chloride 0.9% 1, 800 000 ml @ 100 mls/hr IV . Q10H MELANIE Rx#:[id number] Oral 360 300 Output: Urine 200 200 Other: Voiding Method Toilet Toilet # Voids 1 1 - Exam Physical exam 80-year-old female resting comfortably in bed appears in no acute distress Lungs essentially clear adequate air movement Heart S1-S2 audible irregular monitor atrial fibrillation rate 90s to 80s Abdomen soft nontender Extremities no edema - Labs CBC & Chem 7: 06/17/16 18:46 06/17/16 18:46 Labs: Abnormal Lab Results - Last 24 Hours (Table) 06/19/16 Range/Units 06:04 PT 16.3 H (9.0-12.0) sec Assessment and Plan Plan: Impression Present on admission heart palpitation shortness of breath suspect due to atrial fibrillation with RVR History of atrial fibrillation with prior episodes of RVR Hypothyroid on supplements Subtherapeutic INR 1.5 on admission A recent admission to the emergency room with a significant elevated INR coagulopathy likely due to Bactrim treatment for UTI and Neurontin Echocardiogram left ventricular systolic function normal EF 60-65% done on June 18 Hypertension Coronary artery disease Plan Continue recommendations by cardiology service Home meds as appropriate resume DVT and GI prophylaxis For the recommendations pending will follow Repeat labs in the morning Coumadin stopped started on elquist 2.5 twice a day with Lopressor increased to 25 3 times a day Prepped for probable discharge in the next 24 hours The above dictated assessment and findings were discussed with dr villalobos . Impression and the plan of care have been dictated as directed. Barb Abdullahi nurse practitioner acting as a scribe for dr villalobos
[2016-06-19] MEDS: APIXABAN 2.5 MG TABLET PO SCH (15:30)
[2016-06-19] MEDS ORDERED: APIXABAN 2.5 MG TABLET PO ONE (15:30)
[2016-06-19 21:08] VITALS: RESP 16
[2016-06-19] MEDS: ACETAMINOPHEN TAB 325 MG TAB PO PRN (22:22)
[2016-06-20 06:28] LABS: Glucose,Whole Blood 87 mg/dL (75-99)
[2016-06-20] MEDS: LEVOTHYROXINE 50 MCG TAB PO SCH (06:32)
[2016-06-20 06:49] LABS: INR 1.8 (<1.1)
[2016-06-20] MEDS: SODIUM CHLORIDE 0.9% 1,000 ML IV SCH (08:47)
[2016-06-20] MEDS: APIXABAN 2.5 MG TABLET PO SCH (08:58)
[2016-06-20] MEDS: AMIODARONE 200 MG TAB PO SCH (08:58)
[2016-06-20] MEDS ORDERED: METOPROLOL TARTRATE 25 MG TAB PO SCH (09:00)
[2016-06-20 09:05] VITALS: BP 102/65; PULSE 70; TEMP 97.7
--- NOTE | 2016-06-20 09:33 | PN ---
Tabitha is an 80-year-old lady with history of atrial fibrillation who is admitted to hospital with atrial fibrillation with rapid ventricular rate. We treated her with amiodarone and has converted to sinus rhythm this morning. She is doing well and is free of symptoms. On exam, afebrile. Heart rate is 60 beats per minute, blood pressure is 106/60, respirations 18. There is no jugular venous distention. Carotid upstroke is normal. There is no bruit. Chest exam reveals good air entry bilaterally. Heart exam reveals first and second heart sounds. No gallop. No murmur. Exam of the extremities did not reveal edema. Peripheral pulses are felt. ASSESSMENT: Persistent atrial fibrillation, currently in sinus rhythm. PLAN: Patient is stable to be discharged home on Eliquis 2.5 b.i.d., amiodarone whose dose we will gradually decrease and metoprolol 25 mg b.i.d. She will follow up with me in 3 weeks' time.
--- NOTE | 2016-06-20 10:11 | P.DS ---
Providers Date of admission: 06/17/16 19:32 Expected date of discharge: 06/20/16 Attending physician: Kunal Villalobos Consults: Dr. Phillip cardiology Primary care physician: Physician Nonstaff Hospital Course: 80-year-old female admitted to the emergency room with an episode of shortness of breath found to be in atrial fibrillation with a rapid ventricular response. Patient was followed by cardiology service. Patient was started by recommendations of cardiology on elquist 2.5 twice a day. And Coumadin was stopped. Initially the beta shahram was increased to Lopressor 25 3 times a day. Additionally a VQ scan was done that showed low probability for pulmonary emboli. On the day of discharge patient states symptoms felt significantly improved. Patient was anxious to be discharged home at the time of discharge patient was in sinus rhythm rate in the 60s. Cardiology indicate the patient was appropriate discharged home the amiodarone dose would be gradually decreased in the outpatient setting in the Lopressor 25 twice a day Hollow up in 3 weeks and continue elquist 2.5 bid it's noted that on June 19 the patient converted to a sinus rhythm and has maintained sinus rhythm with no further episodes of atrial fibrillation Echocardiogram done left ventricular systolic function normal EF between 60 and 65%. Impression Present on admission heart palpitation shortness of breath suspect due to atrial fibrillation with RVR History of atrial fibrillation with prior episodes of RVR suspect paraxsymal converted to sinus rhythm on June 19 with no further episodes of atrial fibrillation Hypothyroid on supplements Subtherapeutic INR 1.5 on admission A recent admission to the emergency room with a significant elevated INR coagulopathy likely due to Bactrim treatment for UTI and Neurontin Echocardiogram left ventricular systolic function normal EF 60-65% done on June 18 Hypertension History of Coronary artery disease The above dictated assessment and findings were discussed with dr villalobos . Impression and the plan of care have been dictated as directed. Barb Abdullahi nurse practitioner acting as a scribe for dr villalobos . Patient Condition at Discharge: Fair Plan - Discharge Summary New Discharge Prescriptions: Amiodarone [Cordarone] 400 mg PO BID #90 tab Apixaban [Eliquis] 2.5 mg PO BID #60 tablet Discharge Medication List ALPRAZolam [Xanax] 0.25 mg PO TID PRN 06/13/16 [History] Cranberry Extract [Cranberry] 500 mg PO DAILY 06/13/16 [History] Ergocalciferol [Vitamin D2 (DRISDOL)] 50,000 unit PO WE 06/13/16 [History] L.acidoph,Paracasei, B.lactis [Probiotic] 1 cap PO DAILY 06/13/16 [History] Levothyroxine Sodium [Synthroid] 50 mcg PO DAILY 06/13/16 [History] Sennosides-Docusate Sodium [Senokot-S] 1 tab PO DAILY PRN 06/13/16 [History] Amiodarone [Cordarone] 400 mg PO BID #90 tab 06/20/16 [Rx] Apixaban [Eliquis] 2.5 mg PO BID #60 tablet 06/20/16 [Rx] Metoprolol Tartrate [Lopressor] 25 mg PO BID tab 06/20/16 [Rx] Nitroglycerin Sl Tabs [Nitrostat] 0.4 mg SUBLINGUAL Q5M PRN #0 tab 06/20/16 [Rx] Follow up Appointment(s)/Referral(s): [facility], [NON-STAFF] - Nonstaff,Physician [Primary Care Provider] - 1-2 days Carloz Quigley MD [STAFF PHYSICIAN] - 3 Weeks Kunal Villalobos MD [STAFF PHYSICIAN] - 1 Week Discharge Disposition: HOME SELF-CARE
== END 2016-06-20 11:37 | disposition home health service (06) | DRG 309 ==
LOC: EC 18:24 → 6SEL 19:32
PROVIDERS: ADMIT Family Medicine; ATTEND Family Medicine
DX: I48.0 Paroxysmal atrial fibrillation (principal); E44.0 Moderate protein-calorie malnutrition; M35.00 Sjogren syndrome, unspecified; I10 Essential (primary) hypertension; E03.9 Hypothyroidism, unspecified; I48.2 Chronic atrial fibrillation; I25.10 Atherosclerotic heart disease of native coronary artery without angina pectoris; I25.2 Old myocardial infarction; K59.00 Constipation, unspecified; F32.9 Major depressive disorder, single episode, unspecified; F41.9 Anxiety disorder, unspecified; M19.90 Unspecified osteoarthritis, unspecified site; R79.1 Abnormal coagulation profile; T37.0X5A Adverse effect of sulfonamides, initial encounter; T42.6X5A Adverse effect of other antiepileptic and sedative-hypnotic drugs, initial encounter; Z68.31 Body mass index [BMI] 31.0-31.9, adult; Z88.0 Allergy status to penicillin; Z79.52 Long term (current) use of systemic steroids; Z79.899 Other long term (current) drug therapy; Y92.009 Unspecified place in unspecified non-institutional (private) residence as the place of occurrence of the external cause
CPT/HCPCS: 36415; 71010; 78582; 80053; 80061; 81003; 82550; 82553; 83735; 83880; 84100; 84443; 84484; 85025; 85379; 85610; 85652; 85730; 93005; 93306; 96361; 96374; 96376; 99291

== ENCOUNTER → 2016-06-17 | Outpatient (CLI) | payer MEDICARE ==
[2016-06-17 12:39] LABS: INR 1.4 (<1.1); Prothrombin Time 13.4 sec (9.0-12.0)
== END | disposition home or self-care (01) ==
LOC: LABWHC1 11:52
PROVIDERS: ATTEND Internal Medicine
DX: Z51.81 Encounter for therapeutic drug level monitoring (principal); Z79.01 Long term (current) use of anticoagulants
CPT/HCPCS: 36415; 85610

== ENCOUNTER 2016-07-11 16:32 | Emergency (ER) | payer MEDICARE ==
--- NOTE | 2016-07-11 17:37 | ED ---
General Adult HPI - General Chief complaint: Fall Stated complaint: Fall Time Seen by Provider: 07/11/16 17:25 Source: patient, RN notes reviewed Mode of arrival: ambulatory Limitations: no limitations - History of Present Illness Initial comments: Patient 80-year-old female who presents emergency room today with a chief complaint of a fall that occurred at the doctor's office just prior to arrival. Patient does admit that she was at the GI specialist try to get up on the table when she slipped falling down onto her tailbone. Does admit that she hit the back of her head. Denies any loss conscious. Denies any headache. Does admit that she's on a blood thinner Eliquis. Patient does admit to pain located to the right hip. She states she was advised by the doctor to come here to the emergency room for evaluation. Patient denies any other complaints. Patient denies any recent fever, chills, shortness of breath, chest pain, back pain, abdominal pain, nausea or vomiting, numbness or tingling, dysuria or hematuria, constipation or diarrhea, headaches or visual changes, or any other complaints. - Related Data Home Medications Medication Instructions Recorded Confirmed ALPRAZolam [Xanax] 0.25 mg PO TID PRN 06/13/16 07/11/16 Cranberry Extract [Cranberry] 500 mg PO DAILY 06/13/16 07/11/16 Ergocalciferol [Vitamin D2 50,000 unit PO WE 06/13/16 07/11/16 (DRISDOL)] L.acidoph,Paracasei, B.lactis 1 cap PO DAILY 06/13/16 07/11/16 [Probiotic] Levothyroxine Sodium [Synthroid] 50 mcg PO DAILY 06/13/16 07/11/16 Amiodarone [Cordarone] 200 mg PO BID 07/11/16 07/11/16 Vitamin B Complex 1 cap PO DAILY 07/11/16 07/11/16 predniSONE 10 mg PO DAILY 07/11/16 07/11/16 traMADol HCL/ACETAMINOPHEN 1 tab PO Q6H PRN 07/11/16 07/11/16 [Ultracet 37.5-325] Previous Rx's Medication Instructions Recorded Apixaban [Eliquis] 2.5 mg PO BID #60 tablet 06/20/16 Metoprolol Tartrate [Lopressor] 25 mg PO BID #60 tab 06/20/16 Nitroglycerin Sl Tabs [Nitrostat] 0.4 mg SUBLINGUAL Q5M PRN #0 tab 06/20/16 Allergies Allergy/AdvReac Type Severity Reaction Status Date / Time Penicillins Allergy Unknown Verified 07/11/16 17:48 steroids Allergy Unknown Uncoded 07/11/16 16:51 Review of Systems ROS Statement: Those systems with pertinent positive or pertinent negative responses have been documented in the HPI. ROS Other: All systems not noted in ROS Statement are negative. Past Medical History Past Medical History: Atrial Fibrillation, Hypertension, Myocardial Infarction ( [place]), Thyroid Disorder Additional Past Medical History / Comment(s): Sjgren's disease, coronary artery disease, degenerative arthritis, hypothyroidism, recent urine checked infection for which the patient was given Bactrim, hypertension Last Myocardial Infarction Date:: unsure History of Any Multi-Drug Resistant Organisms: None Reported Past Surgical History: Hysterectomy, Orthopedic Surgery Additional Past Anesthesia/Blood Transfusion Reaction / Comment(s): Pt does not recieve blood products. Past Psychological History: Anxiety, Depression Smoking Status: Never smoker Past Alcohol Use History: None Reported Past Drug Use History: None Reported - Past Family History Mother Family Medical History: Myocardial Infarction ([place]) General Exam - General Exam Comments Initial Comments: General: The patient is awake and alert, in no distress, and does not appear acutely ill. Eye: Pupils are equal, round and reactive to light, extra-ocular movements are intact. No nystagmus. There is normal conjunctiva bilaterally. No signs of icterus. Ears, nose, mouth and throat: There are moist mucous membranes and no oral lesions. Neck: The neck is supple, there is no tenderness or JVD. Cardiovascular: There is a regular rate and rhythm. No murmur, rub or gallop is appreciated. Respiratory: Lungs are clear to auscultation, respirations are non-labored, breath sounds are equal. No wheezes, stridor, rales, or rhonchi. Gastrointestinal: Soft, non-distended, non-tender abdomen without masses or organomegaly noted. There is no rebound or guarding present. No CVA tenderness. Bowel sounds are unremarkable. Musculoskeletal: Normal appearance the right leg no signs of swelling or bruising. Patient shows good range of motion slightly decreased with flexion at the right hip. Mild tenderness over the lateral aspect. No tenderness of thoracic, lumbar spine. No tenderness of cervical spine. No step-offs towards appreciated. Strength 5/5. Sensation intact. Pulses equal bilaterally 2+. Neurological: A&O x 3. CN II-XII intact, There are no obvious motor or sensory deficits. Coordination appears grossly intact. Speech is normal. Skin: Skin is warm and dry and no rashes or lesions are noted. Psychiatric: Cooperative, appropriate mood & affect, normal judgment. Limitations: no limitations Course Vital Signs 07/11/16 07/11/16 16:49 19:25 Temperature 97.8 F Pulse Rate 78 75 Respiratory 20 18 Rate Blood Pressure 146/65 155/73 O2 Sat by Pulse 98 98 Oximetry Medical Decision Making - Medical Decision Making Patient's CAT scan of the head negative for any acute abnormalities. X-rays the lumbar and hip and pelvis negative. Results were discussed with the patient. Patient will be discharged home advised follow-up or return to emergency room if any symptoms increase or worsen or for any other concerns. Disposition Clinical Impression: Fall, Contusion, hip Disposition: HOME SELF-CARE Condition: Good Instructions: Hip Contusion (ED) Additional Instructions: Please use medication as discussed. Please follow-up with family doctor in the next 2 days of symptoms have not improved. Please return to emergency room if the symptoms increase or worsen or for any other concerns. Time of Disposition: 19:37
--- NOTE | 2016-07-11 19:00 | XR ---
EXAMINATION TYPE: XR lumbar spine 2 or 3V DATE OF EXAM: 07/11/2016 6:52 PM CLINICAL HISTORY: pain TECHNIQUE: Three views of the lumbar spine are submitted. COMPARISON: None. FINDINGS: There are 5 lumbar type vertebral bodies identified. No Evidence for acute fracture of the lumbar spi ne. Moderate degenerative disc space narrowing and spondylosis. Facet joint arthropathy. Grade 1 ante rolisthesis L4 and L5 of 4 mm. The overlying soft tissue appears unremarkable. IMPRESSION: No Acute fracture. Degenerative changes as discussed. ICD 10 NO FRACTURE, INITIAL EVALUATION
--- NOTE | 2016-07-11 19:01 | XR ---
EXAMINATION TYPE: XR Hip RT and AP Pelvis DATE OF EXAM: 07/11/2016 6:52 PM COMPARISON: NONE HISTORY: Pain TECHNIQUE: A single AP view of the pelvis is obtained. Two views of the right hip are obtained. FINDINGS: There is no acute fracture/dislocation evident in the pelvis. The hip and sacroiliac join ts appear symmetric and unremarkable. The overlying soft tissue appears unremarkable. Two views of right hip show no acute fracture or dislocation. The overlying soft tissue is unremarka ble. IMPRESSION: There is no acute fracture or dislocation in the pelvis or right hip.
[2016-07-11] MEDS ORDERED: ACETAMINOPHEN TAB 500 MG TAB PO STA (19:25)
--- NOTE | 2016-07-11 19:27 | CT ---
EXAMINATION TYPE: CT brain wo con DATE OF EXAM: 07/11/2016 7:23 PM COMPARISON: NONE HISTORY: PT STATES OF FALL TODAY. CT DLP: 979.[address] of the brain was performed. The ventricles, basal cisterns and sulci overlying the cerebral convexities demonstrate mild enlargem ent. There is no evidence for intracranial hemorrhage or sulcal effacement. There is decreased attenuation about the periventricular white matter and deep white matter of both c erebral hemispheres, compatible with chronic small vessel ischemia. Differential diagnosis does inclu de demyelination. No mass effects are seen.No midline shift. Osseous calvarium is intact. If symptoms persist consider MRI. IMPRESSION: 1. Age related atrophic and chronic small vessel ischemic change without acute intracranial process s een at this time.
[2016-07-11 19:54] VITALS: BP 154/71; PULSE 78; RESP 16; TEMP 98
== END 2016-07-11 19:58 | disposition home or self-care (01) ==
LOC: EC 16:32
DX: S70.01XA Contusion of right hip, initial encounter (principal); I48.91 Unspecified atrial fibrillation; E03.9 Hypothyroidism, unspecified; F41.9 Anxiety disorder, unspecified; F32.9 Major depressive disorder, single episode, unspecified; Z79.52 Long term (current) use of systemic steroids; Z79.899 Other long term (current) drug therapy; W01.10XA Fall on same level from slipping, tripping and stumbling with subsequent striking against unspecified object, initial encounter; Y92.531 Health care provider office as the place of occurrence of the external cause; Z88.0 Allergy status to penicillin; Z88.8 Allergy status to other drugs, medicaments and biological substances
CPT/HCPCS: 70450; 72100; 73502; 99284

== ENCOUNTER → 2017-06-19 | Outpatient (CLI) | payer MEDICARE | END | disposition home or self-care (01) | LOC: LABWHC1 13:49 | PROVIDERS: ATTEND Internal Medicine Cardiovascular Disease | DX: I48.0 Paroxysmal atrial fibrillation (principal); I25.10 Atherosclerotic heart disease of native coronary artery without angina pectoris; R06.02 Shortness of breath | CPT/HCPCS: 36415; 84443; 84450; 84460 ==

== ENCOUNTER → 2017-07-24 | Outpatient (CLI) | payer MEDICARE ==
--- NOTE | 2017-07-24 13:11 | XR ---
EXAMINATION TYPE: XR chest 2V DATE OF EXAM: 07/24/2017 COMPARISON: 06/17/2016 INDICATION: Short of breath TECHNIQUE: Frontal and lateral views of the chest are obtained. FINDINGS: The heart size is normal. The pulmonary vasculature is normal. The lungs are clear. Scoliosis thoracic spine. IMPRESSION: 1. No acute pulmonary process.
== END | disposition home or self-care (01) ==
LOC: RADXRMAIN 12:00
PROVIDERS: ATTEND Internal Medicine Pulmonary Disease
DX: R06.02 Shortness of breath (principal)
CPT/HCPCS: 71046

== ENCOUNTER 2017-08-07 08:28 | Emergency (ER) | payer MEDICARE ==
[2017-08-07] MEDS ORDERED: SODIUM CHLORIDE 0.9% 1,000 ML IV STA (09:18)
[2017-08-07 09:37] LABS: Anisocytosis Slight; Basophils % (A) 1 %; Eosinophils # (A) 0.1 k/uL (0-0.7); Eosinophils % (A) 2 %; HCT 37.2 % (34.0-46.0); HGB 13.1 gm/dL (11.4-16.0); Lymphocytes # (A) 0.5 k/uL (1.0-4.8); Lymphocytes % (A) 14 %; MCH 31.5 pg (25.0-35.0); MCHC 35.4 g/dL (31.0-37.0); Mean Platelet Volume 7.4; Monocytes # (A) 0.2 k/uL (0-1.0); Monocytes % (A) 7 %; Neutrophils # (A) 2.5 k/uL (1.3-7.7); Neutrophils % (A) 74 %; Platelet Count 130 k/uL (150-450); RBC 4.18 m/uL (3.80-5.40); RDW 16.2 % (11.5-15.5); WBC 3.4 k/uL (3.8-10.6)
[2017-08-07 09:38] LABS: INR 1.1 (<1.2); Prothrombin Time 10.8 sec (9.0-12.0)
[2017-08-07 09:45] LABS: Albumin 3.5 g/dL (3.5-5.0); Calcium 8.8 mg/dL (8.4-10.2); Magnesium 1.8 mg/dL (1.6-2.3); Potassium 4.2 mmol/L (3.5-5.1); Total Bilirubin 0.7 mg/dL (0.2-1.3); Total Protein 6.2 g/dL (6.3-8.2)
[2017-08-07] MEDS ORDERED: SODIUM CHLORIDE 0.9% 1,000 ML IV SCH (10:15)
--- NOTE | 2017-08-07 10:18 | XR ---
EXAMINATION TYPE: XR chest 2V DATE OF EXAM: 08/07/2017 COMPARISON: Chest x-ray from 2 weeks ago. HISTORY: History of atrial fibrillation with dizziness and weakness. TECHNIQUE: Frontal and lateral views of the chest are obtained. FINDINGS: There is elevated left hemidiaphragm with linear left basilar atelectasis on current study . Right lung is clear. The cardiac silhouette size is upper limits of normal. The osseous structure s are demineralized. There is multilevel spurring in the spine redemonstrated. Underlying scoliosis i s seen. IMPRESSION: New left basilar linear atelectasis causing increased left diaphragmatic elevation.
[2017-08-07 10:50] LABS: Appearance,Urine Clear (Clear); Bilirubin,Urine Negative (Negative); Blood,Urine Negative (Negative); Color,Urine Yellow; Glucose,Urine (UA) Negative (Negative); Ketones,Urine Negative (Negative); Leukocyte Esterase,Urine Negative (Negative); Nitrite,Urine Negative (Negative); PH, Urine 5.5 (5.0-8.0); Protein,Urine Negative (Negative); Specific Gravity,Urine 1.015 (1.001-1.035); Urobilinogen,Urine <2.0 mg/dL (<2.0)
--- NOTE | 2017-08-07 10:54 | ED ---
Nausea/Vomiting/Diarrhea HPI <Johnathan Feliz J - Last Filed: 08/07/17 12:09> - General Source: patient, EMS, RN notes reviewed, old records reviewed Mode of arrival: EMS Limitations: no limitations <Yomaira Jane - Last Filed: 08/07/17 12:30> - General Chief complaint: Nausea/Vomiting/Diarrhea Stated complaint: vomiting Time Seen by Provider: 08/07/17 09:06 - History of Present Illness Initial comments: This patient is an 81-year-old female presents emergency Department chief complaint dizziness. She reports that she has history of A. fib. Patient states that she recently had a dental procedure yesterday. She had her bottom teeth extracted. She took a pain pill last night. She woke up this morning and felt dizzy and lightheaded. She reports no falls. She states that she has had no fever or chills. Denies any chest pain or shortness of breath this time. Denies any significant headache. Patient reports that she had a be off of her blood thinners for the past 2 days prior to her dental procedure. She did not take Her morning meds. She reports of the EMS were that she had a low heart rate. She states that this is abnormal for her. Her workers compensation examiner is Dr. Phillip. (Yomaira Jane) - Related Data Home Medications Medication Instructions Recorded Confirmed ALPRAZolam [Xanax] 0.25 mg PO Q6H PRN 06/13/16 08/07/17 Cranberry Fruit Extract [Cranberry] 500 mg PO DAILY 06/13/16 08/07/17 L.acidoph,Paracasei, B.lactis 1 cap PO DAILY 06/13/16 08/07/17 [Probiotic] Levothyroxine Sodium [Synthroid] 50 mcg PO DAILY 06/13/16 08/07/17 traMADol HCL/ACETAMINOPHEN 1 tab PO Q6H PRN 07/11/16 08/07/17 [Ultracet 37.5-325] Amiodarone [Cordarone] 50 mg PO DAILY 08/07/17 08/07/17 Cholecalciferol (Vitamin D3) 4,000 unit PO DAILY 08/07/17 08/07/17 [Vitamin D3] Furosemide [Lasix] 20 mg PO DAILY PRN 08/07/17 08/07/17 Methotrexate Sodium [Methotrexate] 15 mg PO WE 08/07/17 08/07/17 Potassium 99 mg PO DAILY 08/07/17 08/07/17 predniSONE 2.5 mg PO DAILY 08/07/17 08/07/17 Previous Rx's Medication Instructions Recorded Apixaban [Eliquis] 2.5 mg PO BID #60 tablet 06/20/16 Metoprolol Tartrate [Lopressor] 25 mg PO BID #60 tab 06/20/16 Nitroglycerin Sl Tabs [Nitrostat] 0.4 mg SUBLINGUAL Q5M PRN #0 tab 06/20/16 Meclizine [Antivert] 25 mg PO TID #20 tab 08/07/17 Ondansetron Odt [Zofran Odt] 4 mg PO Q12HR PRN #12 tab 08/07/17 Allergies Allergy/AdvReac Type Severity Reaction Status Date / Time Penicillins Allergy Unknown Verified 08/07/17 09:06 steroids (can take Allergy Unknown Uncoded 08/07/17 09:06 prednisone) Review of Systems ROS Other: All systems not noted in ROS Statement are negative. <Johnathan Feliz - Last Filed: 08/07/17 12:09> ROS Other: All systems not noted in ROS Statement are negative. <Yomaira Jane - Last Filed: 08/07/17 12:30> ROS Statement: Those systems with pertinent positive or pertinent negative responses have been documented in the HPI. Past Medical History Past Medical History: Atrial Fibrillation, Hypertension, Myocardial Infarction ( [place]), Thyroid Disorder Additional Past Medical History / Comment(s): Sjgren's disease, coronary artery disease, degenerative arthritis, hypothyroidism Last Myocardial Infarction Date:: unsure History of Any Multi-Drug Resistant Organisms: None Reported Past Surgical History: Hysterectomy, Orthopedic Surgery Additional Past Anesthesia/Blood Transfusion Reaction / Comment(s): Pt does not recieve blood products. Past Psychological History: Anxiety, Depression Smoking Status: Never smoker Past Alcohol Use History: None Reported Past Drug Use History: None Reported - Past Family History Mother Family Medical History: Myocardial Infarction ([place]) <Yomaira Jane - Last Filed: 08/07/17 12:30> General Exam <Johnathan Feliz - Last Filed: 08/07/17 12:09> Limitations: no limitations General appearance: alert, in no apparent distress Head exam: Present: atraumatic, normocephalic, normal inspection Eye exam: Present: normal appearance, PERRL, EOMI. Absent: scleral icterus, conjunctival injection, periorbital swelling ENT exam: Present: normal exam, mucous membranes moist Neck exam: Present: normal inspection. Absent: tenderness, meningismus, lymphadenopathy Respiratory exam: Present: normal lung sounds bilaterally. Absent: respiratory distress, wheezes, rales, rhonchi, stridor Cardiovascular Exam: Present: normal rhythm, bradycardia (52 bpm), normal heart sounds. Absent: regular rate, systolic murmur, diastolic murmur, rubs, gallop, clicks GI/Abdominal exam: Present: soft, normal bowel sounds. Absent: distended, tenderness, guarding, rebound, rigid Extremities exam: Present: normal inspection, full ROM, normal capillary refill. Absent: tenderness, pedal edema, joint swelling, calf tenderness Back exam: Present: normal inspection Neurological exam: Present: alert, oriented X3, CN II-XII intact Psychiatric exam: Present: normal affect, normal mood <Yomaira Jane - Last Filed: 08/07/17 12:30> - General Exam Comments Initial Comments: This is an 81-year-old female. Alert and oriented. No distress. She reports that her nausea and dizziness are subsiding while in the emergency department. ( Yomaira Jane) Vital Signs 08/07/17 08/07/17 08/07/17 08:30 10:24 11:48 Temperature 96.7 F L Pulse Rate 52 L 53 L 53 L Pulse Rate [ Sitting] Pulse Rate [ Standing] Pulse Rate [ Supine] Respiratory 16 18 20 Rate Blood Pressure 141/65 138/65 140/56 Blood Pressure [Sitting] Blood Pressure [Standing] Blood Pressure [Supine] O2 Sat by Pulse 98 100 100 Oximetry 08/07/17 11:55 Temperature Pulse Rate Pulse Rate [ 60 Sitting] Pulse Rate [ 63 Standing] Pulse Rate [ 57 L Supine] Respiratory Rate Blood Pressure Blood Pressure 133/62 [Sitting] Blood Pressure 131/60 [Standing] Blood Pressure 129/60 [Supine] O2 Sat by Pulse Oximetry Medical Decision Making - Lab Data Result diagrams: 08/07/17 08:40 08/07/17 08:40 <Johnathan Feliz - Last Filed: 03/29/18 12:09> - Lab Data Result diagrams: 08/07/17 08:40 08/07/17 08:40 - Radiology Data Radiology results: report reviewed <Yomaira Jane - Last Filed: 08/07/17 12:30> - Medical Decision Making The patient was seen and examined. All diagnostics were reviewed. The case is discussed with the PA and I agree with the findings as documented. (Johnathan Feliz) - Lab Data Lab Results 08/07/17 08/07/17 08/07/17 Range/Units 08:40 08:40 08:40 WBC 3.4 L (3.8-10.6) k/uL RBC 4.18 (3.80-5.40) m/uL Hgb 13.1 (11.4-16.0) gm/dL Hct 37.2 (34.0-46.0) % MCV 89.0 (80.0-100.0) fL MCH 31.5 (25.0-35.0) pg MCHC 35.4 (31.0-37.0) g/dL RDW 16.2 H (11.5-15.5) % Plt Count 130 L (150-450) k/uL Neutrophils % 74 % Lymphocytes % 14 % Monocytes % 7 % Eosinophils % 2 % Basophils % 1 % Neutrophils # 2.5 (1.3-7.7) k/uL Lymphocytes # 0.5 L (1.0-4.8) k/uL Monocytes # 0.2 (0-1.0) k/uL Eosinophils # 0.1 (0-0.7) k/uL Basophils # 0.0 (0-0.2) k/uL Anisocytosis Slight PT 10.8 (9.0-12.0) sec INR 1.1 (<1.2) Sodium 140 (137-145) mmol/L Potassium 4.2 (3.5-5.1) mmol/L Chloride 105 (98-107) mmol/L Carbon Dioxide 25 (22-30) mmol/L Anion Gap 10 mmol/L BUN 15 (7-17) mg/dL Creatinine 0.88 (0.52-1.04) mg/dL Est GFR (CKD-EPI)AfAm 71 (>60 ml/min/1.73 sqM) Est GFR (CKD-EPI)NonAf 62 (>60 ml/min/1.73 sqM) Glucose 98 (74-99) mg/dL Calcium 8.8 (8.4-10.2) mg/dL Magnesium 1.8 (1.6-2.3) mg/dL Total Bilirubin 0.7 (0.2-1.3) mg/dL AST 23 (14-36) U/L ALT 36 (9-52) U/L Alkaline Phosphatase 48 (38-126) U/L Troponin I (0.000-0.034) ng/mL Total Protein 6.2 L (6.3-8.2) g/dL Albumin 3.5 (3.5-5.0) g/dL Urine Color Urine Appearance (Clear) Urine pH (5.0-8.0) Ur Specific Humphrey (1.001-1.035) Urine Protein (Negative) Urine Glucose (UA) (Negative) Urine Ketones (Negative) Urine Blood (Negative) Urine Nitrite (Negative) Urine Bilirubin (Negative) Urine Urobilinogen (<2.0) mg/dL Ur Leukocyte Esterase (Negative) 08/07/17 08/07/17 Range/Units 08:40 10:28 WBC (3.8-10.6) k/uL RBC (3.80-5.40) m/uL Hgb (11.4-16.0) gm/dL Hct (34.0-46.0) % MCV (80.0-100.0) fL MCH (25.0-35.0) pg MCHC (31.0-37.0) g/dL RDW (11.5-15.5) % Plt Count (150-450) k/uL Neutrophils % % Lymphocytes % % Monocytes % % Eosinophils % % Basophils % % Neutrophils # (1.3-7.7) k/uL Lymphocytes # (1.0-4.8) k/uL Monocytes # (0-1.0) k/uL Eosinophils # (0-0.7) k/uL Basophils # (0-0.2) k/uL Anisocytosis PT (9.0-12.0) sec INR (<1.2) Sodium (137-145) mmol/L Potassium (3.5-5.1) mmol/L Chloride (98-107) mmol/L Carbon Dioxide (22-30) mmol/L Anion Gap mmol/L BUN (7-17) mg/dL Creatinine (0.52-1.04) mg/dL Est GFR (CKD-EPI)AfAm (>60 ml/min/1.73 sqM) Est GFR (CKD-EPI)NonAf (>60 ml/min/1.73 sqM) Glucose (74-99) mg/dL Calcium (8.4-10.2) mg/dL Magnesium (1.6-2.3) mg/dL Total Bilirubin (0.2-1.3) mg/dL AST (14-36) U/L ALT (9-52) U/L Alkaline Phosphatase (38-126) U/L Troponin I <0.012 (0.000-0.034) ng/mL Total Protein (6.3-8.2) g/dL Albumin (3.5-5.0) g/dL Urine Color Yellow Urine Appearance Clear (Clear) Urine pH 5.5 (5.0-8.0) Ur Specific Humphrey 1.015 (1.001-1.035) Urine Protein Negative (Negative) Urine Glucose (UA) Negative (Negative) Urine Ketones Negative (Negative) Urine Blood Negative (Negative) Urine Nitrite Negative (Negative) Urine Bilirubin Negative (Negative) Urine Urobilinogen <2.0 (<2.0) mg/dL Ur Leukocyte Esterase Negative (Negative) 08/07/17 10:55 EKG shows sinus bradycardia, evidence of A. fib. low-voltage QRS. Nonspecific T-wave abnormality. Ventricular rate of 56 bpm. NV interval 152 ms. QRS duration 72 ms. QT QTc is 446/4:30 milliseconds. (Yomaira Jane) - Radiology Data Chest x-ray his new left basilar lateral atelectasis causing increased a left diaphragmatic elevation. (Yomaira Jane) Disposition <Johnathan Feliz - Last Filed: 08/07/17 12:09> Time of Disposition: 12:28 <Yomaira Jane - Last Filed: 08/07/17 12:30> Clinical Impression: Vertigo, Dizziness Disposition: HOME SELF-CARE Condition: Good Instructions: Vertigo (ED), Acute Nausea and Vomiting (ED) Additional Instructions: Patient to follow-up with primary care provider and return throat specialist. Return to emergency department if any alarming signs or symptoms occur. Prescriptions: Meclizine [Antivert] 25 mg PO TID #20 tab Ondansetron Odt [Zofran Odt] 4 mg PO Q12HR PRN #12 tab PRN Reason: Nausea Referrals: Khadra Jackson DO [Primary Care Provider] - 1-2 days
[2017-08-07] MEDS ORDERED: MECLIZINE 12.5 MG TAB PO STA (12:09)
[2017-08-07 12:49] VITALS: BP 145/67; PULSE 55; RESP 16; TEMP 97
== END 2017-08-07 12:47 | disposition home or self-care (01) ==
LOC: EC 08:28
DX: R42 Dizziness and giddiness (principal); R11.10 Vomiting, unspecified; R00.1 Bradycardia, unspecified; I48.91 Unspecified atrial fibrillation; I10 Essential (primary) hypertension; E03.9 Hypothyroidism, unspecified; Z79.52 Long term (current) use of systemic steroids; Z79.899 Other long term (current) drug therapy; Z88.0 Allergy status to penicillin; Z88.8 Allergy status to other drugs, medicaments and biological substances
CPT/HCPCS: 36415; 71046; 80053; 81003; 83735; 84484; 85025; 85610; 93005; 96360; 96361; 99285

== ENCOUNTER → 2017-10-27 | Outpatient (CLI) | payer MEDICARE ==
[2017-10-27 12:02] LABS: ALT 58 U/L (9-52); AST 28 U/L (14-36); Blood Urea Nitrogen 14 mg/dL (7-17); C Reactive Protein <5.0 mg/L (<10.0)
== END | disposition home or self-care (01) ==
LOC: LABWHC1 10:38
PROVIDERS: ATTEND Nurse Practitioner Family
DX: I12.9 Hypertensive chronic kidney disease with stage 1 through stage 4 chronic kidney disease, or unspecified chronic kidney disease (principal); N18.4 Chronic kidney disease, stage 4 (severe); M06.9 Rheumatoid arthritis, unspecified; I48.2 Chronic atrial fibrillation
CPT/HCPCS: 36415; 82565; 84450; 84460; 84520; 85652; 86140

== ENCOUNTER → 2017-10-30 | Outpatient (CLI) | payer MEDICARE | END | disposition home or self-care (01) | LOC: LABWHC1 12:37 | PROVIDERS: ATTEND Internal Medicine Cardiovascular Disease | DX: I48.0 Paroxysmal atrial fibrillation (principal); E03.2 Hypothyroidism due to medicaments and other exogenous substances | CPT/HCPCS: 84443 ==

== ENCOUNTER 2019-05-10 19:35 | Emergency (ER) | payer MEDICARE ==
[2019-05-10 20:30] VITALS: TEMP 99.1
--- NOTE | 2019-05-10 20:56 | XR ---
EXAMINATION TYPE: XR chest 2V DATE OF EXAM: 05/10/2019 COMPARISON: 08/07/2017 HISTORY: Dizziness TECHNIQUE: FINDINGS: There is mild linear density at the left lung base. Heart size is normal. There is no pleur al effusion. There are no hilar masses. IMPRESSION: Minimal subsegmental atelectasis left lung base is improved compared to last exam. No hea rt failure seen. Normal heart.
[2019-05-10 22:42] VITALS: BP 124/74; RESP 18
[2019-05-10] MEDS ORDERED: IPRATROPIUM-ALBUTEROL 3 ML NEB INHALATION STA (22:53)
[2019-05-10 23:05] VITALS: PULSE 84
--- NOTE | 2019-05-10 23:39 | ED ---
URI HPI - General Chief Complaint: Upper Respiratory Infection Stated Complaint: cough w/pain Time Seen by Provider: 05/10/19 21:56 Source: patient Mode of arrival: ambulatory Limitations: no limitations - History of Present Illness Initial Comments: 83-year-old female presenting today for chief complaint of cough congestion and phlegm production. Patient states she feels like she is a lot of phlegm in her throat she states she is unable to clear it. Patient states she has had a cough for the past 2 weeks has been increasing. Patient denies fevers denies any chest pressure. Patient states that she has an occasional pain in the right rib when she coughs denies hemoptysis leg swelling history DVT program wasn't. Patient denies difficulty breathing. Remaining review of systems negative upon arrival patient appears well no signs of acute distress. Patient is concerned she possibly had pneumonia. - Related Data Home Medications Medication Instructions Recorded Confirmed ALPRAZolam [Xanax] 0.25 mg PO Q6H PRN 06/13/16 05/10/19 Cranberry Fruit Extract [Cranberry] 500 mg PO DAILY@82906/13/16 05/10/19 L.acidoph,Paracasei, B.lactis 1 cap PO DAILY@30 06/13/16 05/10/19 [Probiotic] Levothyroxine Sodium [Synthroid] 50 mcg PO DAILY@0800 06/13/16 05/10/19 Amiodarone [Cordarone] 100 mg PO DAILY@0830 08/07/17 05/10/19 Cholecalciferol (Vitamin D3) 2,000 unit PO DAILY@82908/07/17 05/10/19 [Vitamin D3] Furosemide [Lasix] 20 mg PO DAILY PRN 08/07/17 05/10/19 Methotrexate Sodium [Methotrexate] 15 mg PO WE@212908/07/17 05/10/19 Apixaban [Eliquis] 2.5 mg PO BID@829,202905/10/19 05/10/19 Folic Acid 1 mg PO DAILY@82905/10/19 05/10/19 Metoprolol Tartrate [Lopressor] 25 mg PO BID@08,202905/10/19 05/10/19 Potassium Chloride ER [K-Dur 10] 10 meq PO DAILY PRN 05/10/19 05/10/19 Previous Rx's Medication Instructions Recorded Azithromycin [Zithromax Z-pack] 0 mg PO DIRECTED #6 tab 05/10/19 Allergies Allergy/AdvReac Type Severity Reaction Status Date / Time Penicillins Allergy Unknown Verified 05/10/19 23:12 steroids (can take Allergy Unknown Uncoded 05/10/19 20:30 prednisone) Review of Systems ROS Statement: Those systems with pertinent positive or pertinent negative responses have been documented in the HPI. ROS Other: All systems not noted in ROS Statement are negative. Past Medical History Past Medical History: Atrial Fibrillation, Hypertension, Myocardial Infarction ([place]), Thyroid Disorder Additional Past Medical History / Comment(s): Sjgren's disease, coronary artery disease, degenerative arthritis, hypothyroidism Last Myocardial Infarction Date:: unsure History of Any Multi-Drug Resistant Organisms: None Reported Past Surgical History: Heart Catheterization, Hysterectomy, Orthopedic Surgery Additional Past Anesthesia/Blood Transfusion Reaction / Comment(s): Pt does not recieve blood products. Past Psychological History: Anxiety, Depression Smoking Status: Never smoker Past Alcohol Use History: Rare Past Drug Use History: None Reported - Past Family History Mother Family Medical History: Myocardial Infarction ([place]) General Exam - General Exam Comments Initial Comments: General: The patient is awake and alert, in no distress, and does not appear acutely ill. Eye: +3 mm pupils are equal, round and reactive to light, extra-ocular movements are intact. No nystagmus. There is normal conjunctiva bilaterally. No signs of icterus. No photophobia Ears, nose, mouth and throat: There are moist mucous membranes and no oral lesions. Oropharynx was not erythematous there is no tonsillar enlargement exudates or lesions. Uvula midline. No anterior cervical lymphadenopathy. Rhinorrhea, clear and bilateral nares. No tripoding, no drooling. Neck: The neck is supple, there is no tenderness or JVD. No nuchal rigidity negative Brudzinski and Kernig Cardiovascular: There is a regular rate and rhythm. No murmur, rub or gallop is appreciated. Respiratory: Lungs sounds are slightly diminished. Respirations are non- labored, breath sounds are equal. Mild extra wheezes, no stridor, rales, or rhonchi. No retractions or abdominal breathing. productive cough Gastrointestinal: Soft, non-distended, non-tender abdomen without masses or organomegaly noted. There is no rebound or guarding present. Bowel sounds are unremarkable. Musculoskeletal: Normal ROM, no tenderness. Strength 5/5. Sensation intact. Radial pulses equal bilaterally 2+. Neurological: A&O x 3. CN II-XII intact grossly, There are no obvious motor or sensory deficits. Coordination appears grossly intact. Speech appears normal, no muffling. Skin: Skin is warm and dry and no rashes or lesions are noted. No extremity edema Psychiatric: Cooperative Limitations: no limitations Course Vital Signs 05/10/19 05/10/19 05/10/19 20:24 22:40 23:04 Temperature 99.1 F Pulse Rate 94 85 84 Respiratory 17 18 Rate Blood Pressure 141/70 124/74 O2 Sat by Pulse 95 95 Oximetry 05/10/19 23:09 Temperature Pulse Rate 84 Respiratory Rate Blood Pressure O2 Sat by Pulse Oximetry Medical Decision Making - Medical Decision Making 83-year-old female presented for cough congestion phlegm production concern for pneumonia. Chest x-ray clear. Patient had mild expiratory wheeze improved with DuoNeb patient states she feels like she can produce more phlegm and is breathing better. Patient provided zpack, and instruction to take Mucinex DM. Case discussed with attending, return parameters were discussed with patient as well as importance of primary care follow-up patient verbalized understanding was discharged. While - Lab Data Lab Results 05/10/19 Range/Units 20:32 Influenza Type A RNA Not Detected (Not Detectd) Influenza Type B (PCR) Not Detected (Not Detectd) Disposition Clinical Impression: URI (upper respiratory infection) Disposition: HOME SELF-CARE Condition: Good Instructions (If sedation given, give patient instructions): Upper Respiratory Infection (ED) Additional Instructions: Please use medication as discussed. Please follow-up with family doctor in the next 2 days. Please return to emergency room if the symptoms increase or worsen or for any other concerns. Prescriptions: Azithromycin [Zithromax Z-pack] 0 mg PO DIRECTED #6 tab Is patient prescribed a controlled substance at d/c from ED?: No Referrals: Ilir Vega MD [Primary Care Provider] - 1-2 days Time of Disposition: 23:39
== END 2019-05-11 00:13 | disposition home or self-care (01) ==
LOC: EC 19:35
DX: J06.9 Acute upper respiratory infection, unspecified (principal); I10 Essential (primary) hypertension; I48.91 Unspecified atrial fibrillation; E03.9 Hypothyroidism, unspecified; F41.9 Anxiety disorder, unspecified; F32.9 Major depressive disorder, single episode, unspecified; I25.10 Atherosclerotic heart disease of native coronary artery without angina pectoris; I25.2 Old myocardial infarction; Z79.890 Hormone replacement therapy; Z79.899 Other long term (current) drug therapy; Z79.01 Long term (current) use of anticoagulants; Z88.0 Allergy status to penicillin; Z88.8 Allergy status to other drugs, medicaments and biological substances
CPT/HCPCS: 71046; 87502; 94640; 99284

== ENCOUNTER 2020-06-26 02:53 | Inpatient (IN) | payer MEDICARE ==
--- NOTE | 2020-06-26 02:59 | ED ---
Abdominal Pain HPI - General Stated Complaint: Bowel Issues Time Seen by Provider: 06/26/20 02:54 Source: RN notes reviewed, old records reviewed Limitations: no limitations - History of Present Illness Initial Comments: This is an 84-year-old female DEL with episodic abdominal pain and constipation and now with right red blood per rectum. Patient does admit to recent constipation disimpaction. Patient has abdominal cramping stent persistent, ration is having bowel movements and is having loose stools at this time no rectal pain. MD Complaint: abdominal pain, other (constipation resolved, noq diarrhea) Location: diffuse Radiation: none Migration to: no migration Severity: moderate Severity scale (1-10): 5 Quality: cramping, stabbing Consistency: intermittent Improves With: nothing Worsens With: nothing Associated Symptoms: denies other symptoms - Related Data Home Medications Medication Instructions Recorded Confirmed ALPRAZolam [Xanax] 0.25 mg PO Q6H PRN 06/13/16 05/10/19 Cranberry Fruit Extract [Cranberry] 500 mg PO DAILY@30 06/13/16 05/10/19 L.acidoph,Paracasei, B.lactis 1 cap PO DAILY@30 06/13/16 05/10/19 [Probiotic] Levothyroxine Sodium [Synthroid] 50 mcg PO DAILY@0800 06/13/16 05/10/19 Amiodarone [Cordarone] 100 mg PO DAILY@0830 08/07/17 05/10/19 Cholecalciferol (Vitamin D3) 2,000 unit PO DAILY@0830 08/07/17 05/10/19 [Vitamin D3] Furosemide [Lasix] 20 mg PO DAILY PRN 08/07/17 05/10/19 metHOTREXate sodium [Methotrexate] 15 mg PO WE@212908/07/17 05/10/19 Apixaban [Eliquis] 2.5 mg PO BID@829,202905/10/19 05/10/19 Folic Acid 1 mg PO DAILY@82905/10/19 05/10/19 Metoprolol Tartrate [Lopressor] 25 mg PO BID@0830,202905/10/19 05/10/19 Potassium Chloride ER [K-Dur 10] 10 meq PO DAILY PRN 05/10/19 05/10/19 Previous Rx's Medication Instructions Recorded Azithromycin [Zithromax Z-pack] 0 mg PO DIRECTED #6 tab 05/10/19 Allergies Allergy/AdvReac Type Severity Reaction Status Date / Time Penicillins Allergy Unknown Verified 05/10/19 23:12 steroids (can take Allergy Unknown Uncoded 05/10/19 20:30 prednisone) Review of Systems ROS Statement: Those systems with pertinent positive or pertinent negative responses have been documented in the HPI. ROS Other: All systems not noted in ROS Statement are negative. Past Medical History Past Medical History: Atrial Fibrillation, Hypertension, Myocardial Infarction ([place]), Thyroid Disorder Additional Past Medical History / Comment(s): Sjgren's disease, coronary artery disease, degenerative arthritis, hypothyroidism Last Myocardial Infarction Date:: unsure History of Any Multi-Drug Resistant Organisms: None Reported Past Surgical History: Heart Catheterization, Hysterectomy, Orthopedic Surgery Additional Past Anesthesia/Blood Transfusion Reaction / Comment(s): Pt does not recieve blood products. Past Psychological History: Anxiety, Depression Past Alcohol Use History: Rare Past Drug Use History: None Reported - Past Family History Mother Family Medical History: Myocardial Infarction (SD) General Exam General appearance: alert, in no apparent distress Head exam: Present: atraumatic, normocephalic, normal inspection Eye exam: Present: normal appearance, PERRL, EOMI. Absent: scleral icterus, conjunctival injection, periorbital swelling ENT exam: Present: normal exam, mucous membranes moist Neck exam: Present: normal inspection. Absent: tenderness, meningismus, lymphadenopathy Respiratory exam: Present: normal lung sounds bilaterally. Absent: respiratory distress, wheezes, rales, rhonchi, stridor Cardiovascular Exam: Present: regular rate, normal rhythm, normal heart sounds. Absent: systolic murmur, diastolic murmur, rubs, gallop, clicks GI/Abdominal exam: Present: soft, normal bowel sounds. Absent: distended, tenderness, guarding, rebound, rigid Extremities exam: Present: normal inspection, full ROM, normal capillary refill. Absent: tenderness, pedal edema, joint swelling, calf tenderness Back exam: Present: normal inspection Neurological exam: Present: alert, oriented X3, CN II-XII intact Psychiatric exam: Present: normal affect, normal mood Skin exam: Present: warm, dry, intact, normal color. Absent: rash Course Vital Signs 06/26/20 03:07 Temperature 97.4 F L Pulse Rate 58 L Respiratory 18 Rate Blood Pressure 144/76 O2 Sat by Pulse 97 Oximetry - Reevaluation(s) Reevaluation #1: 06/26/20 05:45 Medical record is reviewed Patient still does appear to be clean of blood here in the ER Reevaluation #2: 06/26/20 05:45 Patient is informed of results questions are answered Medical Decision Making - Medical Decision Making 84 female DEL with history of impaction and diarrhea, patient has disimpacted herself at home was having loose stools currently. Very weak and dehydrated, patient be admitted for continued symptomatically care - Lab Data Result diagrams: 06/26/20 03:09 06/26/20 03:09 Lab Results 06/26/20 06/26/20 06/26/20 Range/Units 03:09 03:09 03:09 WBC 7.3 (3.8-10.6) k/uL RBC 4.80 (3.80-5.40) m/uL Hgb 14.1 (11.4-16.0) gm/dL Hct 43.0 (34.0-46.0) % MCV 89.6 (80.0-100.0) fL MCH 29.3 (25.0-35.0) pg MCHC 32.8 (31.0-37.0) g/dL RDW 13.7 (11.5-15.5) % Plt Count 160 (150-450) k/uL MPV 7.4 Neutrophils % 81 % Lymphocytes % 12 % Monocytes % 4 % Eosinophils % 1 % Basophils % 1 % Neutrophils # 5.9 (1.3-7.7) k/uL Lymphocytes # 0.9 L (1.0-4.8) k/uL Monocytes # 0.3 (0-1.0) k/uL Eosinophils # 0.1 (0-0.7) k/uL Basophils # 0.1 (0-0.2) k/uL PT 10.3 (9.0-12.0) sec INR 1.0 (<1.2) APTT 22.6 (22.0-30.0) sec Sodium 135 L (137-145) mmol/L Potassium 4.7 (3.5-5.1) mmol/L Chloride 100 (98-107) mmol/L Carbon Dioxide 28 (22-30) mmol/L Anion Gap 7 mmol/L BUN 17 (7-17) mg/dL Creatinine 1.19 H (0.52-1.04) mg/dL Est GFR (CKD-EPI)AfAm 48 (>60 ml/min/1.73 sqM) Est GFR (CKD-EPI)NonAf 42 (>60 ml/min/1.73 sqM) Glucose 118 H (74-99) mg/dL Plasma Lactic Acid Norm (0.7-2.0) mmol/L Calcium 9.3 (8.4-10.2) mg/dL Phosphorus 4.0 (2.5-4.5) mg/dL Magnesium 2.1 (1.6-2.3) mg/dL Total Bilirubin 0.6 (0.2-1.3) mg/dL AST 29 (14-36) U/L ALT 19 (4-34) U/L Alkaline Phosphatase 63 (38-126) U/L Troponin I (0.000-0.034) ng/mL NT-Pro-B Natriuret Pep pg/mL Total Protein 8.0 (6.3-8.2) g/dL Albumin 4.2 (3.5-5.0) g/dL 06/26/20 06/26/20 06/26/20 Range/Units 03:09 03:09 03:09 WBC (3.8-10.6) k/uL RBC (3.80-5.40) m/uL Hgb (11.4-16.0) gm/dL Hct (34.0-46.0) % MCV (80.0-100.0) fL MCH (25.0-35.0) pg MCHC (31.0-37.0) g/dL RDW (11.5-15.5) % Plt Count (150-450) k/uL MPV Neutrophils % % Lymphocytes % % Monocytes % % Eosinophils % % Basophils % % Neutrophils # (1.3-7.7) k/uL Lymphocytes # (1.0-4.8) k/uL Monocytes # (0-1.0) k/uL Eosinophils # (0-0.7) k/uL Basophils # (0-0.2) k/uL PT (9.0-12.0) sec INR (<1.2) APTT (22.0-30.0) sec Sodium (137-145) mmol/L Potassium (3.5-5.1) mmol/L Chloride (98-107) mmol/L Carbon Dioxide (22-30) mmol/L Anion Gap mmol/L BUN (7-17) mg/dL Creatinine (0.52-1.04) mg/dL Est GFR (CKD-EPI)AfAm (>60 ml/min/1.73 sqM) Est GFR (CKD-EPI)NonAf (>60 ml/min/1.73 sqM) Glucose (74-99) mg/dL Plasma Lactic Acid Norm 2.1 H* (0.7-2.0) mmol/L Calcium (8.4-10.2) mg/dL Phosphorus (2.5-4.5) mg/dL Magnesium (1.6-2.3) mg/dL Total Bilirubin (0.2-1.3) mg/dL AST (14-36) U/L ALT (4-34) U/L Alkaline Phosphatase (38-126) U/L Troponin I <0.012 (0.000-0.034) ng/mL NT-Pro-B Natriuret Pep 113 pg/mL Total Protein (6.3-8.2) g/dL Albumin (3.5-5.0) g/dL - Radiology Data Radiology results: report reviewed (XR abd series w chest negative for acute dz), image reviewed Disposition Clinical Impression: Constipation, Weakness, Blood in stool Disposition: [facility] Condition: Fair Is patient prescribed a controlled substance at d/c from ED?: No Referrals: Ilir Vega MD [Primary Care Provider] - 1-2 days
[2020-06-26] MEDS ORDERED: SODIUM CHLORIDE 0.9% 1,000 ML IV STA ×3 (03:00→04:55)
[2020-06-26 03:50] LABS: Basophils # (A) 0.1 k/uL (0-0.2); Basophils % (A) 1 %; Eosinophils # (A) 0.1 k/uL (0-0.7); Eosinophils % (A) 1 %; HGB 14.1 gm/dL (11.4-16.0); Lymphocytes # (A) 0.9 k/uL (1.0-4.8); Lymphocytes % (A) 12 %; MCH 29.3 pg (25.0-35.0); MCHC 32.8 g/dL (31.0-37.0); MCV 89.6 fL (80.0-100.0); Mean Platelet Volume 7.4; Monocytes # (A) 0.3 k/uL (0-1.0); Monocytes % (A) 4 %; Neutrophils # (A) 5.9 k/uL (1.3-7.7); Neutrophils % (A) 81 %; Platelet Count 160 k/uL (150-450); RDW 13.7 % (11.5-15.5); WBC 7.3 k/uL (3.8-10.6)
[2020-06-26 04:05] LABS: Albumin 4.2 g/dL (3.5-5.0); Calcium 9.3 mg/dL (8.4-10.2); Total Bilirubin 0.6 mg/dL (0.2-1.3)
[2020-06-26 04:08] LABS: Magnesium 2.1 mg/dL (1.6-2.3); Potassium 4.7 mmol/L (3.5-5.1)
[2020-06-26 04:37] LABS: Partial Thromboplastin Time 22.6 sec (22.0-30.0); Prothrombin Time 10.3 sec (9.0-12.0)
[2020-06-26] MEDS ORDERED: SENNOSIDES-DOCUSATE SODIUM 1 EACH TAB PO STA (04:55)
[2020-06-26] MEDS: METOCLOPRAMIDE 5 MG/ML 2 ML VIAL IVP SCH ×4 (06:42→23:18)
--- NOTE | 2020-06-26 06:49 | XR ---
EXAM: XR Abdomen, 2 Views and XR Chest, 1 View CLINICAL HISTORY: pain, UNSPECIFIED TECHNIQUE: Frontal view of the chest, frontal view of the abdomen/pelvis and upright or decubitus view of the abdomen. COMPARISON: Radiographs of the lumbar spine dated 07/11/2016. FINDINGS: Limitations: Evaluation limited secondary to patient body habitus. Lungs: Symmetric opacities overlying both lower lung zones, both measuring 9 mm, likely represent costochondral junctions. Pleural space: Unremarkable. No pneumothorax. Heart: Unremarkable. No cardiomegaly. Mediastinum: Unremarkable. Intraperitoneal space: No free air. Gastrointestinal tract: Unremarkable. No dilation. Bones/joints: Mild/moderate levoscoliosis of the lumbar spine with multilevel degenerative changes, similar to prior study. Mild/moderate osteoarthropathy involving both hips. IMPRESSION: Symmetric opacities overlying both lower lung zones, both measuring 9 mm, likely represent costochondral junctions. PA and lateral views of the chest recommended for further evaluation.
[2020-06-26] MEDS ORDERED: traMADol 50 MG TAB PO STA (07:12)
[2020-06-26] MEDS ORDERED: ONDANSETRON 4 MG/2 ML VIAL IVP PRN (10:10)
[2020-06-26] MEDS ORDERED: NALOXONE 0.4 MG/ML 1 ML VIAL IV PRN (10:10)
[2020-06-26] MEDS ORDERED: POTASSIUM CHLORIDE ER 10 MEQ TAB.ER.PRT PO PRN (10:11)
[2020-06-26] MEDS ORDERED: FUROSEMIDE 20 MG TAB PO PRN (10:11)
[2020-06-26] MEDS: polyethylene glycoL 3350 17 GM POWD.PACK PO SCH (11:07)
[2020-06-26] MEDS: traMADol 50 MG TAB PO SCH ×3 (11:07→23:17)
[2020-06-26] MEDS: SODIUM CHLORIDE 0.9% 1,000 ML IV SCH ×2 (11:08→20:10)
--- NOTE | 2020-06-26 14:24 | P.HPIM ---
History of Present Illness Patient is a pleasant 84-year-old female came in with complains of GI bleed. Patient did get constipated and found 6 of blood in the stool. Patient does have history of atrial fibrillation presently sinus rhythm patient does have h istory of proximal A. fib on Eliquis 2.5 mg twice a day. Patient usually has diarrhea secondary to diverticulosis as per the patient. Patient denied any blood in the stools today. Patient's hemoglobin is around 13. Patient is a being admitted for monitoring for any further GI bleed. Patient is also complaining of lightheadedness as an main reason for her to come to the hospital patient blood pressure is on the low side patient is on Lasix on as-needed basis for peripheral edema did have normal ejection fraction the past. Review of Systems REVIEW OF SYSTEMS: CONSTITUTIONAL: No fever, no malaise, no fatigue. HEENT: No recent visual problems or hearing problems. Denied any sore throat. CARDIOVASCULAR: No chest pain, orthopnea, PND, no palpitations, no syncope. PULMONARY: No shortness of breath, no cough, no hemoptysis. GASTROINTESTINAL: No diarrhea, no nausea, no vomiting, no abdominal pain. Did complain of some rectal pain NEUROLOGICAL: No headaches, no weakness, no numbness. HEMATOLOGICAL: Denies any bleeding or petechiae. GENITOURINARY: Denies any burning micturition, frequency, or urgency. MUSCULOSKELETAL/RHEUMATOLOGICAL: Denies any joint pain, swelling, or any muscle pain. ENDOCRINE: Denies any polyuria or polydipsia. The rest of the 14-point review of systems is negative. Past Medical History Past Medical History: Atrial Fibrillation, Coronary Artery Disease (CAD), Hypertension, Myocardial Infarction (HI), Osteoarthritis (OA), Rheumatoid Arthritis (RA), Thyroid Disorder Additional Past Medical History / Comment(s): Recent stool constipation with stool disimpaction, Afib RVR, HI per EKG over 40 yrs ago, pt thinks she has had CHF in the past but not certain, bilateral lower leg/pedal edema, UTIs, diverticular disease, hypothyroid, Sjogren's syndrome, past gallbladder problems corrected with diet. NO BLOOD OR BLOOD PRODUCTS. Last Myocardial Infarction Date:: over 40 yrs ago History of Any Multi-Drug Resistant Organisms: None Reported Past Surgical History: Bladder Surgery, Heart Catheterization, Hysterectomy, Joint Replacement, Tonsillectomy Additional Past Surgical History / Comment(s): R total knee arthroplasty, bladder suspension, colonoscopy, bilateral cataract removals Past Anesthesia/Blood Transfusion Reactions: Motion Sickness Additional Past Anesthesia/Blood Transfusion Reaction / Comment(s): PT IS JEHOVAH WITNESS AND DOES NOT RECEIVE BLOOD OR BLOOD PRODUCTS. Pt has clausterphobia. Smoking Status: Never smoker - Past Family History Mother Family Medical History: Eye Disorder, Myocardial Infarction (HI) Additional Family Medical History / Comment(s): Mother had HI in her 60s. She was legally blind from macular degeneration. Father Family Medical History: Cancer Additional Family Medical History / Comment(s): Father from lung/laryngeal cancer with mets to brain. Medications and Allergies Home Medications Medication Instructions Recorded Confirmed Type Cranberry Fruit Extract [Cranberry] 500 mg PO DAILY@82906/13/16 06/26/20 History L.acidoph,Paracasei, B.lactis 1 cap PO DAILY@82906/13/16 06/26/20 History [Probiotic] Levothyroxine Sodium [Synthroid] 50 mcg PO AC-BRKFST 06/13/16 06/26/20 History Amiodarone [Cordarone] 100 mg PO DAILY@82908/07/17 06/26/20 History Cholecalciferol (Vitamin D3) 2,000 unit PO DAILY@82908/07/17 06/26/20 History [Vitamin D3] Furosemide [Lasix] 20 mg PO DAILY PRN 08/07/17 06/26/20 History Apixaban [Eliquis] 2.5 mg PO BID@05/10/19 06/26/20 History Folic Acid 1 mg PO DAILY@82905/10/19 06/26/20 History Metoprolol Tartrate [Lopressor] 25 mg PO BID@829,202905/10/19 06/26/20 History Potassium Chloride ER [K-Dur 10] 10 meq PO DAILY PRN 05/10/19 06/26/20 History Allergies Allergy/AdvReac Type Severity Reaction Status Date / Time Penicillins Allergy Unknown Verified 06/26/20 07:30 steroids (can take Allergy Unknown Uncoded 06/26/20 07:30 prednisone) Physical Exam Vitals: Vital Signs Temp Pulse Resp BP Pulse Ox 06/26/20 11:09 97.7 F 63 16 100/51 98 06/26/20 08:03 67 16 114/88 100 06/26/20 06:03 67 18 107/56 97 06/26/20 05:00 68 18 125/71 98 06/26/20 03:07 97.4 F L 58 L 18 144/76 97 Intake and Output 06/25/20 06/26/20 06/26/20 22:59 06:59 14:59 Other: Weight 72.575 kg 72.575 kg PHYSICAL EXAMINATION: GENERAL: The patient is alert and oriented x3, not in any acute distress. Well developed, well nourished. HEENT: Pupils are round and equally reacting to light. EOMI. No scleral icterus. No conjunctival pallor. Normocephalic, atraumatic. No pharyngeal erythema. No thyromegaly. CARDIOVASCULAR: S1 and S2 present. No murmurs, rubs, or gallops. PULMONARY: Chest is clear to auscultation, no wheezing or crackles. ABDOMEN: Soft, nontender, nondistended, normoactive bowel sounds. No palpable organomegaly. MUSCULOSKELETAL: No joint swelling or deformity. EXTREMITIES: No cyanosis, clubbing, bilateral nonpitting pedal edema with chronic venous stasis dermatosis NEUROLOGICAL: Gross neurological examination did not reveal any focal deficits. SKIN: No rashes. Results CBC & Chem 7: 06/26/20 03:09 06/26/20 03:09 Labs: Abnormal Lab Results - Last 24 Hours (Table) 06/26/20 06/26/20 06/26/20 Range/Units 03:09 03:09 03:09 Lymphocytes # 0.9 L (1.0-4.8) k/uL Sodium 135 L (137-145) mmol/L Creatinine 1.19 H (0.52-1.04) mg/dL Glucose 118 H (74-99) mg/dL Plasma Lactic Acid Norm 2.1 H* (0.7-2.0) mmol/L Thrombosis Risk Factor Assmnt - Choose All That Apply Any of the Below Risk Factors Present?: Yes Each Factor Represents 1 point: Obesity (BMI >25) Other Risk Factors: Yes Each Risk Factor Represents 3 Points: Age 75 years or older Other congenital or acquired thrombophilia - If yes, enter type in comment: No Thrombosis Risk Factor Assessment Total Risk Factor Score: 4 Thrombosis Risk Factor Assessment Level: Moderate Risk Assessment and Plan Plan: -Acute lower GI bleed: Probably secondary to hemorrhoids and patient will be started on on the sole cream patient will be monitored overnight gastroentero logy will be consulted. Is a possibility of diverticular bleed as well. -Mild acute renal failure hold off diuretics patient is on IV fluids which will be continued -Lightheadedness: Most probably secondary to hypotension holding of diuretics and patient was started on IV fluids -Lactic is doses secondary to intravascular 1 and the patient patient will be continued on IV fluids -Atrial fibrillation patient is presently rate controlled and sinus rhythm patient will be continued on her rate control medications hold off on Eliquis -Hypothyroidism continue with levothyroxine obtain TSH levels because of low blood pressures -History of coronary artery disease -Hypertension patient is presently hypotensive
[2020-06-26] MEDS: HYDROCORTISONE SUPPOSITORY 25 MG SUPP RECTAL SCH ×2 (20:09→23:18)
[2020-06-26] MEDS: METOPROLOL TARTRATE 25 MG TAB PO SCH (23:21)
[2020-06-27 04:50] LABS: Appearance,Urine Turbid (Clear); Bacteria,Urine Occasional /hpf; Bilirubin,Urine Negative (Negative); Blood,Urine Small (Negative); Color,Urine Yellow; Glucose,Urine (UA) Negative (Negative); Ketones,Urine Negative (Negative); Leukocyte Esterase,Urine Large (Negative); Mucus,Urine Moderate /hpf; Nitrite,Urine Positive (Negative); PH, Urine 5.5 (5.0-8.0); Protein,Urine Trace (Negative); RBC,Urine 18 /hpf (0-5); Specific Gravity,Urine 1.019 (1.001-1.035); Squamous Epithelial Cell,Urine 2 /hpf (0-4); Urobilinogen,Urine <2.0 mg/dL (<2.0); WBC,Urine >182 /hpf (0-5)
[2020-06-27] MEDS: LEVOTHYROXINE 50 MCG TAB PO SCH (05:17)
[2020-06-27] MEDS: METOCLOPRAMIDE 5 MG/ML 2 ML VIAL IVP SCH ×4 (05:17→23:34)
[2020-06-27] MEDS: FOLIC ACID 1 MG TAB PO SCH (09:44)
[2020-06-27] MEDS: traMADol 50 MG TAB PO SCH (09:44)
[2020-06-27] MEDS: polyethylene glycoL 3350 17 GM POWD.PACK PO SCH (09:46)
[2020-06-27] MEDS: AMIODARONE 100 MG TAB PO SCH (09:52)
[2020-06-27] MEDS: HYDROCORTISONE SUPPOSITORY 25 MG SUPP RECTAL SCH ×2 (09:52→21:09)
[2020-06-27] MEDS: METOPROLOL TARTRATE 25 MG TAB PO SCH ×2 (09:55→21:07)
[2020-06-27 10:36] LABS: HCT 39.4 % (34.0-46.0); HGB 12.9 gm/dL (11.4-16.0); MCH 29.9 pg (25.0-35.0); MCHC 32.7 g/dL (31.0-37.0); MCV 91.5 fL (80.0-100.0); Mean Platelet Volume 7.4; Platelet Count 130 k/uL (150-450); RDW 13.8 % (11.5-15.5); WBC 7.8 k/uL (3.8-10.6)
[2020-06-27] MEDS: SODIUM CHLORIDE 0.9% 1,000 ML IV SCH ×2 (12:48→15:25)
[2020-06-27] MEDS ORDERED: ACETAMINOPHEN TAB 325 MG TAB PO PRN (12:59)
--- NOTE | 2020-06-27 14:47 | P.PN ---
Subjective 84-year-old female came in with complains of GI bleed. Patient did get constipated and found 6 of blood in the stool. Patient does have history of atrial fibrillation presently sinus rhythm patient does have history of proximal A. fib on Eliquis 2.5 mg twice a day. Patient usually has diarrhea secondary to diverticulosis as per the patient. Patient denied any blood in the stools today. Patient's hemoglobin is around 13. Patient is a being admitted for monitoring for any further GI bleed. Patient is also complaining of lightheadedness as an main reason for her to come to the hospital patient blood pressure is on the low side patient is on Lasix on as-needed basis for peripheral edema did have normal ejection fraction the past. 06/27/2020 Patient doesn't have a any more blood in the stools. Family has concerns about her disposition because of which physical therapy and occupational therapy evaluated the patient and case management is working on her. Patient will be started back on Eliquis patient has significant abnormal urine but patient doesn't have any symptoms of UTI 1 no leukocytosis or fever. Patient basically has symptomatic bacteriuria not require any antibiotics. Constitutional: Denied any fatigue denied any fever. Cardio vascular: denied any chest pain, palpitations Gastrointestinal denied any nausea vomiting Pulmonary: Denied any shortness of breath cough Neurologic denied any new focal deficits All inpatient medications were reviewed and appropriate changes in these medications as dictated in the interval history and assessment and plan. Objective - Vital Signs Vital signs: Vital Signs Temp 97.9 F 06/27/20 07:47 Pulse 62 06/27/20 07:47 Resp 18 06/27/20 07:47 BP 103/63 06/27/20 07:47 Pulse Ox 97 06/27/20 07:47 Intake & Output 06/26/20 06/27/20 06/27/20 18:59 06:59 18:59 Intake Total 180 Output Total 200 Balance -200 180 Weight 72.575 kg Intake: Oral 180 Output: Urine 200 Other: Voiding Method Bedside Commode Bedside Commode Diaper Diaper Incontinent Incontinent # Voids 1 1 # Bowel Movements 1 1 - Exam PHYSICAL EXAMINATION: GENERAL: The patient is alert and oriented x3, not in any acute distress. Well developed, well nourished. HEENT: Pupils are round and equally reacting to light. EOMI. No scleral icterus. No conjunctival pallor. Normocephalic, atraumatic. No pharyngeal erythema. No thyromegaly. CARDIOVASCULAR: S1 and S2 present. No murmurs, rubs, or gallops. PULMONARY: Chest is clear to auscultation, no wheezing or crackles. ABDOMEN: Soft, nontender, nondistended, normoactive bowel sounds. No palpable organomegaly. MUSCULOSKELETAL: No joint swelling or deformity. EXTREMITIES: No cyanosis, clubbing, bilateral nonpitting pedal edema with chronic venous stasis dermatosis NEUROLOGICAL: Gross neurological examination did not reveal any focal deficits. SKIN: No rashes. - Labs CBC & Chem 7: 06/27/20 10:09 06/26/20 03:09 Labs: Abnormal Lab Results - Last 24 Hours (Table) 06/26/20 06/27/20 06/27/20 Range/Units 03:09 04:09 10:09 Plt Count 130 L (150-450) k/uL TSH 8.170 H (0.350-5.500) uIU/mL Urine Appearance Turbid H (Clear) Urine Protein Trace H (Negative) Urine Blood Small H (Negative) Urine Nitrite Positive H (Negative) Ur Leukocyte Esterase Large H (Negative) Urine RBC 18 H (0-5) /hpf Urine WBC >182 H (0-5) /hpf Urine WBC Clumps Few H (None) /hpf Urine Bacteria Occasional H (None) /hpf Urine Mucus Moderate H (None) /hpf Microbiology - Last 24 Hours (Table) 06/27/20 04:09 Urine Culture - Preliminary Urine,Voided Assessment and Plan Plan: -Acute lower GI bleed: Probably secondary to hemorrhoids and patient will be s tarted on on the sole cream patient will be monitored overnight gastroenterology will be consulted. Is a possibility of diverticular bleed as well. No more clinical GI bleed patient was started back on anticoagulation -Mild acute renal failure hold off diuretics patient is on IV fluids which will be continued -Lightheadedness: Most probably secondary to hypotension holding of diuretics and patient was started on IV fluids -Lactic is doses secondary to intravascular depletion. and the patient patient will be continued on IV fluids -Atrial fibrillation patient is presently rate controlled and sinus rhythm patient will be continued on her rate control medications. eliquis will be resumed -Hypothyroidism continue with levothyroxine obtain TSH levels because of low blood pressures -History of coronary artery disease -Hypertension patient is presently hypotensive _ Asymptomatic bactreurea
--- NOTE | 2020-06-27 18:27 | CONS ---
CONSULTATION DATE OF DICTATION: 06/27/2020 REASON FOR CONSULTATION: Rectal bleeding and constipation. HISTORY OF PRESENT ILLNESS: The patient is an 84-year-old pleasant white female with history of atrial fibrillation, on Eliquis, who came to the emergency room because of altered bowel movements for the last few weeks' duration. She was extremely constipated and she was straining at stool. She tried to take some Metamucil at home, and while she was straining she noticed some bright red blood per rectum. She had two episodes yesterday, became concerned and hence came into the emergency room and subsequently was admitted to the hospital for further evaluation. Her hemoglobin is around 13 g/dL. Since being in the hospital she did not have any episodes of further bleeding. In fact, she had two bowel movements this morning that were brown in color. She denies any lower abdominal pain. She reports no nausea, vomiting. She had a colonoscopy about 15 years ago, and according to the patient she was diagnosed with diverticulosis. PAST MEDICAL HISTORY: Significant for coronary artery disease, atrial fibrillation, hypertension, coronary artery disease, hyperlipidemia, rheumatoid arthritis and hypothyroidism. PAST SURGICAL HISTORY: Bladder surgery, hysterectomy, tonsillectomy, cardiac catheterization, right total knee replacement, bilateral cataract surgery, and colonoscopy 15 years ago. SOCIAL HISTORY: No smoking. No alcohol use. HOME MEDICATIONS: Cranberry juice, Cordarone, levothyroxine, vitamin D3, Lasix, folic acid, Lopressor, K- Dur. ALLERGIES: PENICILLIN and STEROIDS. FAMILY HISTORY: Mother with coronary artery disease and father had laryngeal cancer. REVIEW OF SYSTEMS: CARDIOPULMONARY: No chest pain or shortness of breath. GENITOURINARY: No dysuria or hematuria. MUSCULOSKELETAL: Unremarkable. SKIN: Unremarkable. ENDOCRINE: Unremarkable. PSYCHIATRIC: Unremarkable. NEUROLOGY: Unremarkable. ENT/VISION: Unremarkable. GI: As mentioned above. HEMATOLOGY: Unremarkable. CONSTITUTIONAL: No recent weight loss. No fever, chills, night sweats. PHYSICAL EXAMINATION: Blood pressure 120/72, pulse rate 65, temperature 97.9. HEENT examination unremarkable. Conjunctivae pink. Sclerae anicteric. Oral cavity no lesions. NECK: No JVD or lymph node enlargement. CHEST: Clear to auscultation. HEART: Regular rate and rhythm. ABDOMEN: Soft. Bowel sounds are positive. No organomegaly. EXTREMITIES: No pedal edema. SKIN: No rashes. NEUROLOGIC: Alert and oriented x3. No focal deficits. LABS: WBC 7.3, hemoglobin 14, platelets are normal. Basic metabolic panel is within normal limits. PT and INR within normal limits. Hemoglobin today is 12.9 g/dL. IMPRESSION: 1. Constipation/rectal bleeding, most likely related to bleeding from internal hemorrhoids. The patient was severely constipated and was straining at stool for the last 2 or 3 days' duration and had 2 episodes of bright red blood per rectum yesterday. Today she had normal bowel movements. Hemoglobin stable at 12.5 g/dL. 2. Atrial fibrillation, on Eliquis. 3. History of coronary artery disease, status post myocardial infarction in the past. 4. History of hypertension and hyperlipidemia. RECOMMENDATIONS: I had a lengthy discussion with the patient regarding the source of rectal bleeding, which is most likely from internal hemorrhoids, but because of the fact that her last colonoscopy was 15 years ago, I did offer a colonoscopy, but she declined at the present time. Will start her on MiraLAX 17 grams daily to help with constipation, and she was advised to avoid straining and constipation. Start on Anusol HC suppository once at bedtime. If she has no further bleeding and her hemoglobin remains stable, she can be discharged home tomorrow. In the meantime, she can continue with Eliquis at the present time. Will follow with you closely. Thank you for this consultation. CINDI / ANA: [phone] /
[2020-06-27] MEDS: APIXABAN 2.5 MG TABLET PO SCH (21:07)
[2020-06-27] MEDS: ACETAMINOPHEN TAB 325 MG TAB PO PRN (21:07)
[2020-06-28] MEDS: SODIUM CHLORIDE 0.9% 1,000 ML IV SCH (03:09)
[2020-06-28] MEDS: METOCLOPRAMIDE 5 MG/ML 2 ML VIAL IVP SCH ×2 (05:22→10:58)
[2020-06-28] MEDS: LEVOTHYROXINE 50 MCG TAB PO SCH (05:22)
[2020-06-28 07:22] VITALS: RESP 16
[2020-06-28] MEDS: METOPROLOL TARTRATE 25 MG TAB PO SCH ×2 (08:19→09:20)
[2020-06-28] MEDS: polyethylene glycoL 3350 17 GM POWD.PACK PO SCH (08:19)
[2020-06-28] MEDS: FOLIC ACID 1 MG TAB PO SCH (08:19)
[2020-06-28] MEDS: APIXABAN 2.5 MG TABLET PO SCH (08:19)
[2020-06-28] MEDS: HYDROCORTISONE SUPPOSITORY 25 MG SUPP RECTAL SCH (08:19)
[2020-06-28] MEDS: AMIODARONE 100 MG TAB PO SCH (08:19)
[2020-06-28 09:19] LABS: HCT 35.7 % (37.2-46.3); HGB 11.6 g/dL (12.0-15.0); MCH 30.1 pg (27.0-32.0); MCHC 32.5 g/dL (32.0-37.0); MCV 92.5 fL (80.0-97.0); Mean Platelet Volume 10.7 fL (9.5-12.2); Platelet Count 123 X 10*3/uL (140-440); RBC 3.86 X 10*6/uL (4.10-5.20); WBC 6.96 X 10*3/uL (4.50-10.00)
[2020-06-28 09:37] LABS: African American GFR (CKD) 59.5 (60.0-200.0); Anion Gap 4.5 mmol/L (4.00-12.00); Calcium 8.4 mg/dL (8.7-10.3); Carbon Dioxide 25.5 mmol/L (21.6-31.8); Non-African American GFR(CKD) 51.3 (60.0-200.0); Potassium 4.1 mmol/L (3.5-5.5)
--- NOTE | 2020-06-28 11:59 | P.DS ---
Providers Date of admission: 06/26/20 10:10 Attending physician: Fili Dobson Consults: 06/26/20 12:52 Consult Physician Routine Consulting Provider: Julita Quigley Consult Reason/Comments: Lower GI bleed Do you want consulting provider notified?: Yes [facility] Course: 84-year-old female came in with complains of GI bleed. Patient did get constipated and found 6 of blood in the stool. Patient does have history of atrial fibrillation presently sinus rhythm patient does have history of proximal A. fib on Eliquis 2.5 mg twice a day. Patient usually has diarrhea secondary to diverticulosis as per the patient. Patient denied any blood in the stools today. Patient's hemoglobin is around 13. Patient is a being admitted for monitoring for any further GI bleed. Patient is also complaining of lightheadedness as an main reason for her to come to the hospital patient blood pressure is on the low side patient is on Lasix on as-needed basis for peripheral edema did have normal ejection fraction the past. 06/27/2020 Patient doesn't have a any more blood in the stools. Family has concerns about her disposition because of which physical therapy and occupational therapy evaluated the patient and case management is working on her. Patient will be started back on Eliquis patient has significant abnormal urine but patient doesn't have any symptoms of UTI 1 no leukocytosis or fever. Patient basically has symptomatic bacteriuria not require any antibiotics. 06/28/2020 Patient doesn't have any more episodes of GI bleed and patient is clinically doing well and patient the was recommended to be discharged to subacute rehabilitation patient will be discharged to subacute rehab awaiting prior authorization from insurance. Patient episode of GI bleeding secondary to internal hemorrhoids most probably. This resolved at this time. Patient probably can stop her Anusol cream in about 10 days. PHYSICAL EXAMINATION: GENERAL: The patient is alert and oriented x3, not in any acute distress. Well developed, well nourished. HEENT: Pupils are round and equally reacting to light. EOMI. No scleral icterus. No conjunctival pallor. Normocephalic, atraumatic. No pharyngeal erythema. No thyromegaly. CARDIOVASCULAR: S1 and S2 present. No murmurs, rubs, or gallops. PULMONARY: Chest is clear to auscultation, no wheezing or crackles. ABDOMEN: Soft, nontender, nondistended, normoactive bowel sounds. No palpable organomegaly. MUSCULOSKELETAL: No joint swelling or deformity. EXTREMITIES: No cyanosis, clubbing, bilateral nonpitting pedal edema with chr onic venous stasis dermatosis NEUROLOGICAL: Gross neurological examination did not reveal any focal deficits. SKIN: No rashes. Assessment and Plan Plan: -Acute lower GI bleed: Probably secondary to hemorrhoids , improved. No more episodes of GI bleed and patient was started back on anticoagulation that is 2.5 mg twice a day for Eliquis -Mild acute renal failure secondary to diuretics which improved at this time -Lightheadedness: Most probably secondary to hypotension which is again secondary to diuretics -Lactic acidosis secondary to intravascular depletion. Resolved -Atrial fibrillation patient is presently rate controlled and sinus rhythm patient will be continued on her rate control medications. eliquis was resumed -Hypothyroidism continue with levothyroxine patient TSH is bit elevated will increase the dose of levothyroxine -History of coronary artery disease -Hypertension patient is presently hypotensive _ Asymptomatic bactreurea Patient Condition at Discharge: Fair Plan - Discharge Summary Discharge Rx Participant: No New Discharge Prescriptions: New Hydrocortisone Suppository [Anusol-Hc] 25 mg RECTAL BID supp polyethylene glycoL 3350 [Miralax] 17 gm PO DAILY PRN #15 packet PRN Reason: Constipation Continue Cranberry Fruit Extract [Cranberry] 500 mg PO DAILY@829 Levothyroxine Sodium [Synthroid] 50 mcg PO AC-BRKFST L.acidoph,Paracasei, B.lactis [Probiotic] 1 cap PO DAILY@829 Furosemide [Lasix] 20 mg PO DAILY PRN PRN Reason: Edema Cholecalciferol (Vitamin D3) [Vitamin D3] 2,000 unit PO DAILY@829 Amiodarone [Cordarone] 100 mg PO DAILY@829 Potassium Chloride ER [K-Dur 10] 10 meq PO DAILY PRN PRN Reason: W/LASIX Folic Acid 1 mg PO DAILY@829 Apixaban [Eliquis] 2.5 mg PO BID@ Metoprolol Tartrate [Lopressor] 25 mg PO BID@ Discharge Medication List Cranberry Fruit Extract [Cranberry] 500 mg PO DAILY@0830 06/13/16 [History] L.acidoph,Paracasei, B.lactis [Probiotic] 1 cap PO DAILY@82906/13/16 [History] Levothyroxine Sodium [Synthroid] 50 mcg PO AC-BRKFST 06/13/16 [History] Amiodarone [Cordarone] 100 mg PO DAILY@82908/07/17 [History] Cholecalciferol (Vitamin D3) [Vitamin D3] 2,000 unit PO DAILY@82908/07/17 [History] Furosemide [Lasix] 20 mg PO DAILY PRN 08/07/17 [History] Apixaban [Eliquis] 2.5 mg PO BID@829,202905/10/19 [History] Folic Acid 1 mg PO DAILY@82905/10/19 [History] Metoprolol Tartrate [Lopressor] 25 mg PO BID@829,202905/10/19 [History] Potassium Chloride ER [K-Dur 10] 10 meq PO DAILY PRN 05/10/19 [History] Hydrocortisone Suppository [Anusol-Hc] 25 mg RECTAL BID supp 06/28/20 [Rx] polyethylene glycoL 3350 [Miralax] 17 gm PO DAILY PRN #15 packet 06/28/20 [Rx] Follow up Appointment(s)/Referral(s): Royer Benton MD [STAFF PHYSICIAN] - 1-2 Days Ilir Vega MD [Primary Care Provider] - 3 Days
[2020-06-28] MEDS: ACETAMINOPHEN TAB 325 MG TAB PO PRN (12:04)
--- NOTE | 2020-06-28 13:29 | P.PN ---
Subjective Progress Note Date: 06/28/20 Principal diagnosis: Rectal bleeding A pleasant 84-year-old white female patient with history of atrial fibrillation on Eliquis who came into the emergency department because of her bowel movements for the last few weeks duration. She is been complaining of constipation and straining with her bowel movements. She's been using Metamucil at home but noticed some bright red blood per rectum and came to have further evaluation. She has not had any further rectal bleeding since she's been in the hospital. She's been started on inflammatory rectal suppositories, MiraLAX, and Tucks pads. She denies any abdominal pain, nausea, or vomiting. States she had a bowel movement yesterday but no rectal bleeding. Objective - Vital Signs Vital signs: Vital Signs Temp 97.4 F L 06/28/20 07:21 Pulse 62 06/28/20 08:23 Resp 16 06/28/20 07:21 BP 130/66 06/28/20 07:21 Pulse Ox 95 06/28/20 07:21 Intake & Output 06/27/20 06/28/20 06/28/20 18:59 06:59 18:59 Intake Total 780 Output Total 300 Balance 780 -300 Intake: Oral 780 Output: Urine 300 Other: Voiding Method Bedside Commode Bedside Commode Diaper Diaper Incontinent Incontinent # Voids 1 2 1 # Bowel Movements 1 1 1 - Exam General appearance: The patient is alert, oriented, appears in no acute distress. HET: Head is normocephalic and atraumatic. Conjunctiva pink. Sclera anicteric. Neck: Supple without lymphadenopathy. Abdomen: Soft, nontender, nondistended with bowel sounds. No guarding or rigidity. Extremities: Normal skin color and turgor. No pedal edema Skin: No rashes, no jaundice Neurological: No focal deficits. Alert and oriented 3. - Labs CBC & Chem 7: 06/28/20 05:00 06/28/20 05:00 Labs: Abnormal Lab Results - Last 24 Hours (Table) 06/27/20 06/28/20 06/28/20 Range/Units 10:09 05:00 05:00 RBC 3.86 L (4.10-5.20) X 10*6/uL Hgb 11.6 L (12.0-15.0) g/dL Hct 35.7 L (37.2-46.3) % Plt Count 130 L 123 L (150-450) k/uL Sodium 134 L (135-145) mmol/L Est GFR (CKD-EPI)AfAm 59.5 L (60.0-200.0) Est GFR (CKD-EPI)NonAf 51.3 L (60.0-200.0) Calcium 8.4 L (8.7-10.3) mg/dL Microbiology - Last 24 Hours (Table) 06/27/20 04:09 Urine Culture - Preliminary Urine,Voided Assessment and Plan (1) Rectal bleeding Narrative/Plan: This is a lady who presented to the emergency department with complaints of rectal bleeding and constipation. Most likely bleeding related to her internal hemorrhoids. Prior to admission she was having severe constipation straining at stool for last 2-3 days duration and had 2 episodes of bright red blood per rectum. Since her hospitalization she has not had any further rectal bleeding, she has had a normal bowel movement. Her hemoglobin has remained stable. Discussion was had with the patient regarding possible colonoscopy, the patient is declining at this time. Current Visit: Yes Status: Acute Code(s): K62.5 - HEMORRHAGE OF ANUS AND RECTUM SNOMED Code(s): 10043449 (2) Constipation Current Visit: Yes Status: Acute Code(s): K59.00 - CONSTIPATION, UNSPECIFIED SNOMED Code(s): 78816840 (3) History of atrial fibrillation Narrative/Plan: Patient has a history atrial fibrillation on Eliquis Current Visit: Yes Status: Acute Code(s): Z86.79 - PERSONAL HISTORY OF OTHER DISEASES OF THE CIRCULATORY SYSTEM SNOMED Code(s): 204469888 Plan: 1. Supportive care 2. Continue MiraLAX daily, titrate as needed 3. Colonoscopy offered to patient, however has declined at the present time 4. Patient has had no further rectal bleeding, may be discharged home from a gastroenterology standpoint 5. Discussed with patient may follow-up with gastroenterology on an outpatient basis as needed Thank you for this consultation, we will sign off at this time Dr. Fady Quigley I agree with the dictator's note, documented as a scribe by Cindi Mata.
[2020-06-28 14:09] VITALS: BP 96/58; PULSE 51; TEMP 97.6
== END 2020-06-28 16:04 | DRG 394 ==
LOC: EC 02:53 → OBSVTOIN 10:10 → 6NMEDSUR 10:10
PROVIDERS: ADMIT Hospitalist; ATTEND Hospitalist
DX: K64.8 Other hemorrhoids (principal); E87.2 Acidosis; N17.9 Acute kidney failure, unspecified; E78.5 Hyperlipidemia, unspecified; E03.9 Hypothyroidism, unspecified; E86.0 Dehydration; I10 Essential (primary) hypertension; I25.10 Atherosclerotic heart disease of native coronary artery without angina pectoris; K59.09 Other constipation; Z20.822 Contact with and (suspected) exposure to COVID-19; M06.9 Rheumatoid arthritis, unspecified; K57.90 Diverticulosis of intestine, part unspecified, without perforation or abscess without bleeding; Z96.651 Presence of right artificial knee joint; I48.91 Unspecified atrial fibrillation; T50.2X5A Adverse effect of carbonic-anhydrase inhibitors, benzothiadiazides and other diuretics, initial encounter; Z79.01 Long term (current) use of anticoagulants; Z79.890 Hormone replacement therapy; I25.2 Old myocardial infarction; Z79.899 Other long term (current) drug therapy; Z80.2 Family history of malignant neoplasm of other respiratory and intrathoracic organs; Z82.1 Family history of blindness and visual loss; Z82.49 Family history of ischemic heart disease and other diseases of the circulatory system; Z90.710 Acquired absence of both cervix and uterus
CPT/HCPCS: 36415; 74022; 80048; 80053; 81001; 83605; 83735; 83880; 84100; 84439; 84443; 84484; 85025; 85027; 85610; 85730; 87077; 87086; 87186; 87635; 93005; 96361; 96374; 99285

== ENCOUNTER 2022-10-03 08:58 | Day surgery (SDC) | payer MEDICARE, OTHER ==
[2022-10-01 11:30] VITALS: BMI 32.9
--- NOTE | 2022-10-03 07:45 | P.GSHP ---
History of Present Illness H&P Date: 10/03/22 CHIEF COMPLAINT: GERD and colon screen HISTORY OF PRESENT ILLNESS: The patient is a 87-year-old female who presents with gastroesophageal reflux disease and need for colon screen. Upper and lower endoscopy were offered for further evaluation and management. PAST MEDICAL HISTORY: Please see list. PAST SURGICAL HISTORY: Please see list. MEDICATIONS: Please see list. ALLERGIES: Please see list. SOCIAL HISTORY: No illicit drug use FAMILY HISTORY: No reports of Crohn disease or ulcerative colitis. REVIEW OF ORGAN SYSTEMS: CONSTITUTIONAL: No reports of fevers or chills. GI: Denies any blood in stools or constipation. PHYSICAL EXAM: VITAL SIGNS: Stable GENERAL: Well-developed pleasant in no acute distress. HEENT: No scleral icterus. Extraocular movements grossly intact. Moist buccal mucosa. NECK: Supple without lymphadenopathy. CHEST: Unlabored respirations. Equal bilateral excursions. CARDIOVASCULAR: Regular rate and rhythm. Distal 2+ pulses. ABDOMEN: Soft, nondistended. MUSCULOSKELETAL: No clubbing, cyanosis, or edema. ASSESSMENT: 1. Gastroesophageal reflux disease 2. Colon screen. PLAN: 1. Recommend proceeding with an upper and lower endoscopy Past Medical History Past Medical History: Atrial Fibrillation, Coronary Artery Disease (CAD), Cancer, Hypertension, Myocardial Infarction (KS), Osteoarthritis (OA), Rheumatoid Arthritis (RA), Thyroid Disorder Additional Past Medical History / Comment(s): Afib RVR, KS per EKG over 40 yrs ago, bilateral lower leg/pedal edema, UTIs, diverticular disease, hypothyroid, Sjogren's syndrome, past gallbladder problems corrected with diet. NO BLOOD OR BLOOD PRODUCTS. HEMORRHOIDS, HAS PERMANENT BLADDER CATHETER, SKIN CANCER Last Myocardial Infarction Date:: over 40 yrs ago History of Any Multi-Drug Resistant Organisms: None Reported Past Surgical History: Bladder Surgery, Heart Catheterization With Stent, Hysterectomy, Joint Replacement, Tonsillectomy Additional Past Surgical History / Comment(s): R total knee arthroplasty, bladder suspension, colonoscopy, BILAT CATARACTS REMOVED WITH LENS IMPLANTS Past Anesthesia/Blood Transfusion Reactions: Motion Sickness Additional Past Anesthesia/Blood Transfusion Reaction / Comment(s): PT IS JEHOVA[facility] WITNESS AND DOES NOT RECEIVE BLOOD OR BLOOD PRODUCTS. Pt has claustrophobia. Date of Last Stent Placement:: UNK Smoking Status: Never smoker - Past Family History Mother Family Medical History: Eye Disorder, Myocardial Infarction (KS) Additional Family Medical History / Comment(s): Mother had [place] in her 60s. She was legally blind from macular degeneration. Father Family Medical History: Cancer Additional Family Medical History / Comment(s): Father from lung/laryngeal cancer with mets to brain. Medications and Allergies Home Medications Medication Instructions Recorded Confirmed Type Cranberry Fruit Extract [Cranberry] 500 mg PO DAILY@0830 06/13/16 10/01/22 History Amiodarone [Cordarone] 100 mg PO DAILY@82908/07/17 10/01/22 History Cholecalciferol (Vitamin D3) 2,000 unit PO DAILY@82908/07/17 10/01/22 History [Vitamin D3] Furosemide [Lasix] 20 mg PO DAILY 08/07/17 10/01/22 History Apixaban [Eliquis] 2.5 mg PO BID@829,202905/10/19 10/01/22 History Metoprolol Tartrate [Lopressor] 12.5 mg PO BID@829,202905/10/19 10/01/22 History Potassium Chloride ER [K-Dur 10] 10 meq PO DAILY 05/10/19 10/01/22 History Hydrocortisone Suppository 25 mg RECTAL BID supp 06/28/20 10/01/22 Rx [Anusol-Hc] Levothyroxine Sodium [Synthroid] 75 mcg PO AC-BRKFST #0 06/28/20 10/01/22 Rx Ferrous Sulfate [Feosol] 325 mg PO DAILY 10/01/22 10/01/22 History Gabapentin [Neurontin] 100 mg PO HS 10/01/22 10/01/22 History Hydroxychloroquine Sulfate 200 mg PO BID 10/01/22 10/01/22 History [Plaquenil] Multivitamins, Thera [Multivitamin 1 tab PO DAILY 10/01/22 10/01/22 History (formulary)] Allergies Allergy/AdvReac Type Severity Reaction Status Date / Time Penicillins Allergy Unknown Verified 10/01/22 11:06 Childhood
[~2022-10-03 08:58] MED LIST: LACTATED RINGERS 1,000 ML IV SCH; LIDOCAINE 1% (10MG/ML) FOR IV START INTRADERMA PRN
[2022-10-03] MEDS ORDERED: PROPOFOL 10 MG/ML 20 ML VIAL IV ONE (09:54)
[2022-10-03] MEDS ORDERED: LIDOCAINE 2% INJ 20 MG/ML (2 ML VIAL) ONE (09:54)
[2022-10-03 09:55] VITALS: TEMP 97.3
--- NOTE | 2022-10-03 10:13 | P.PCN ---
Date of Procedure: 10/03/22 Description of Procedure: PREOPERATIVE DIAGNOSIS: Gastrointestinal bleed POSTOPERATIVE DIAGNOSIS: Duodenitis Gastritis. Diaphragmatic hiatal hernia Arteriovenous malformations OPERATION: Esophagogastroduodenoscopy with biopsies along antrum and duodenum SURGEON: Karyna Dover MD ANESTHESIA: MAC. INDICATIONS: The patient is a 87-year-old female who presents with reflux disease. Benefits and risks of the procedure were described. Informed consent was obtained. DESCRIPTION: The patient was brought into the endoscopy suite and laid in the left lateral decubitus position. An Olympus gastroscope was passed along the posterior oropharynx down to the distal esophagus where the squamocolumnar junction was encountered at 35 cm from the incisors. The stomach was entered and no bile reflux was found. Additional findings are listed below. Biopsies with cold forceps were obtained of the antrum. The first through third portion of the duodenum was examined. Retroflexion of the scope confirmed Hill grade 2 lower esophageal valve. The squamocolumnar junction demonstrated LA grade A erosive esophagitis. The stomach was desufflated. The patient tolerated the procedure well. FINDINGS: Squamocolumnar junction 35 cm from the incisors. Diaphragmatic hiatus at 40 cm. Hiatal hernia, 5 cm Hill grade 2 lower esophageal valve. LA grade A erosive esophagitis. 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
[2022-10-03 10:53] VITALS: RESP 16
--- NOTE | 2022-10-03 10:56 | P.PCN ---
Date of Procedure: 10/03/22 Description of Procedure: PREOPERATIVE DIAGNOSIS: Gastrointestinal bleeding POSTOPERATIVE DIAGNOSIS: Arteriovenous malformation, transverse colon Diverticulosis, moderate to severe Internal and external hemorrhoids, grade 4 OPERATION: Colonoscopy with ablation of arteriovenous malformation, proximal transverse colon using GOLD PROBE Colonoscopy to the cecum, ileocecal valve and appendiceal orifice. SURGEON: Karyna Dover MD. ANESTHESIA: MAC. INDICATIONS: The patient is a 87-year-old female who presents with GI bleed. Benefits and risks were described and informed consent was obtained. DESCRIPTION OF PROCEDURE: The patient had undergone Sutab prep. The patient had been brought into the operating room and laid in the left lateral decubitus position. After adequate intravenous sedation, the rectum was examined with 2% lidocaine jelly. External hemorrhoids were encountered. The rectal tone was within normal limits. No lesions were palpated in the rectal vault. An Olympus colonoscope was exchanged from adult to pediatric colonoscope to advance until the cecum, ileocecal valve and appendiceal orifice were clearly viewed. The prep was fair. Scattered diverticulosi moderate to severe, was encountered. No colonic polyps were found. No evidence of focal colitis was found. Retroflexion of the scope demonstrated grade 1 internal hemorrhoids without active bleeding or inflammation. The colon was desufflated. The patient had tolerated the procedure well. Withdrawal time was over 6 minutes. FINDINGS: Aronchick preparation quality scale 3 (1-5) Internal hemorrhoids, grade 4 External prolapsed hemorrhoids, grade 4 Arteriovenous malformations, 4mm at proximal transverse colon ablated using the gold probe No adenomatous polyps. No focal colitis. RECOMMENDATIONS: Lower endoscopy as needed Patient high risk for bleeding with diverticulosis, arteriovenous malformations, internal and external hemorrhoids with blood thinners Plan - Discharge Summary Discharge Rx Participant: No New Discharge Prescriptions: Continue Cranberry Fruit Extract [Cranberry] 500 mg PO DAILY@0830 Furosemide [Lasix] 20 mg PO DAILY Cholecalciferol (Vitamin D3) [Vitamin D3] 2,000 unit PO DAILY@0830 Amiodarone [Cordarone] 100 mg PO DAILY@0830 Potassium Chloride ER [K-Dur 10] 10 meq PO DAILY Apixaban [Eliquis] 2.5 mg PO BID@ Metoprolol Tartrate [Lopressor] 12.5 mg PO BID@ Hydrocortisone Suppository [Anusol-Hc] 25 mg RECTAL BID supp Levothyroxine Sodium [Synthroid] 75 mcg PO AC-BRKFST #0 Gabapentin [Neurontin] 100 mg PO HS Ferrous Sulfate [Iron (65 MG Elemental)] 325 mg PO DAILY Multivitamins, Thera [Multivitamin (formulary)] 1 tab PO DAILY Hydroxychloroquine Sulfate [Plaquenil] 200 mg PO BID Discharge Medication List Cranberry Fruit Extract [Cranberry] 500 mg PO DAILY@82906/13/16 [History] Amiodarone [Cordarone] 100 mg PO DAILY@82908/07/17 [History] Cholecalciferol (Vitamin D3) [Vitamin D3] 2,000 unit PO DAILY@82908/07/17 [History] Furosemide [Lasix] 20 mg PO DAILY 08/07/17 [History] Apixaban [Eliquis] 2.5 mg PO BID@829,202905/10/19 [History] Metoprolol Tartrate [Lopressor] 12.5 mg PO BID@05/10/19 [History] Potassium Chloride ER [K-Dur 10] 10 meq PO DAILY 05/10/19 [History] Hydrocortisone Suppository [Anusol-Hc] 25 mg RECTAL BID supp 06/28/20 [Rx] Levothyroxine Sodium [Synthroid] 75 mcg PO AC-BRKFST #0 06/28/20 [Rx] Ferrous Sulfate [Iron (65 MG Elemental)] 325 mg PO DAILY 10/01/22 [History] Gabapentin [Neurontin] 100 mg PO HS 10/01/22 [History] Hydroxychloroquine Sulfate [Plaquenil] 200 mg PO BID 10/01/22 [History] Multivitamins, Thera [Multivitamin (formulary)] 1 tab PO DAILY 10/01/22 [History] Follow up Appointment(s)/Referral(s): Karyna Dover MD [STAFF PHYSICIAN] - 10/15/22 2:00 pm Patient Instructions/Handouts: Diverticulosis Diet (GEN), Diverticulosis (DC) Activity/Diet/Wound Care/Special Instructions: Repeat colonoscopy as needed. Start Blood thinner 10/05 Discharge Disposition: HOME SELF-CARE
[2022-10-03 11:17] VITALS: BP 146/84; PULSE 56
== END 2022-10-03 12:09 | disposition home or self-care (01) ==
LOC: ORWHC2ENDO 08:58
PROVIDERS: ATTEND Surgery Plastic and Reconstructive Surgery
DX: K29.50 Unspecified chronic gastritis without bleeding (principal); K55.21 Angiodysplasia of colon with hemorrhage; K64.3 Fourth degree hemorrhoids; K64.8 Other hemorrhoids; K44.9 Diaphragmatic hernia without obstruction or gangrene; K29.80 Duodenitis without bleeding; K21.00 Gastro-esophageal reflux disease with esophagitis, without bleeding; I48.91 Unspecified atrial fibrillation; I25.10 Atherosclerotic heart disease of native coronary artery without angina pectoris; I25.2 Old myocardial infarction; I10 Essential (primary) hypertension; M19.90 Unspecified osteoarthritis, unspecified site; M06.9 Rheumatoid arthritis, unspecified; E03.9 Hypothyroidism, unspecified; M35.00 Sjogren syndrome, unspecified; Z87.19 Personal history of other diseases of the digestive system; Z85.828 Personal history of other malignant neoplasm of skin; Z95.5 Presence of coronary angioplasty implant and graft; Z90.710 Acquired absence of both cervix and uterus; Z90.89 Acquired absence of other organs; Z79.899 Other long term (current) drug therapy; Z98.41 Cataract extraction status, right eye; Z98.42 Cataract extraction status, left eye; Z82.49 Family history of ischemic heart disease and other diseases of the circulatory system; Z79.890 Hormone replacement therapy; Z88.0 Allergy status to penicillin
CPT/HCPCS: 45388; 88305; 45382; 43239; J2704; J2001

== ENCOUNTER 2023-08-18 01:16 | Inpatient (IN) | payer MEDICARE, OTHER ==
[2023-08-18 01:55] LABS: Partial Thromboplastin Time 24.3 sec (22.0-30.0); Prothrombin Time 10.7 sec (10.0-12.5)
--- NOTE | 2023-08-18 02:02 | XR ---
EXAMINATION TYPE: XR chest 2V DATE OF EXAM: 08/18/2023 COMPARISON: Chest x-ray May 10, 2019 HISTORY: Chest pain TECHNIQUE: Frontal and lateral views of the chest are obtained. FINDINGS: Stable minimal left basilar linear scarring. There is no suspicious new focal air space op acity, pleural effusion, or pneumothorax seen. The cardiac silhouette size is upper limits of frank l. Underlying scoliosis is redemonstrated. IMPRESSION: No suspicious acute process.
[2023-08-18 02:14] LABS: Basophils % (A) 1 %; Eosinophils # (A) 0.1 k/uL (0-0.7); Eosinophils % (A) 2 %; HCT 39.8 % (34.0-46.0); HGB 13.5 gm/dL (11.4-16.0); Lymphocytes # (A) 1.2 k/uL (1.0-4.8); Lymphocytes % (A) 20 %; MCH 30.7 pg (25.0-35.0); MCHC 33.9 g/dL (31.0-37.0); Mean Platelet Volume 7.7; Monocytes # (A) 0.4 k/uL (0-1.0); Monocytes % (A) 7 %; Neutrophils % (A) 68 %; Platelet Count 200 k/uL (150-450); RDW 13.7 % (11.5-15.5); WBC 5.9 k/uL (3.8-10.6)
--- NOTE | 2023-08-18 02:16 | ED ---
Chest Pain HPI - General Chief Complaint: Chest Pain Stated Complaint: Chest pain Time Seen by Provider: 08/18/23 01:27 Source: EMS Mode of arrival: EMS - History of Present Illness Initial Comments: this patient is an 87-year-old woman who arrives by ambulance to have evaluation for substernal chest pain. She states that it came on tonight while she was attempting to go to sleep. She states she was in a reclining chair. The patient is not able to characterize the pain. She has not noted worsening or relieving factors. She was given 3 nitroglycerin tablets without change in the sensation. MD Complaint: chest pain -: hour(s) Onset: during rest Pain Location: substernal Pain Radiation: none Severity: moderate Quality: other (unable to characterize) Consistency: constant Improves With: nothing Worsens With: nothing Treatments Prior to Arrival: nitroglycerin - Related Data Home Medications Medication Instructions Recorded Confirmed Cranberry Fruit Extract [Cranberry] 500 mg PO DAILY 06/13/16 08/18/23 Amiodarone [Cordarone] 100 mg PO DAILY 08/07/17 08/18/23 Metoprolol Tartrate [Lopressor] 12.5 mg PO BID 05/10/19 08/18/23 Potassium Chloride ER [K-Dur 10] 10 meq PO DAILY 05/10/19 08/18/23 Hydroxychloroquine Sulfate 200 mg PO BID 10/01/22 08/18/23 [Plaquenil] Multivitamins, Thera [Multivitamin 1 tab PO DAILY 10/01/22 08/18/23 (formulary)] Acetaminophen Tab [Tylenol] 500 mg PO QID@05,,,08/18/23 08/18/23 Albuterol Sulfate [Ventolin HFA] 2 puff INHALATION RT-Q6H PRN 08/18/23 08/18/23 Artificial Tears-Hypromellose 1 drop BOTH EYES BID 08/18/23 08/18/23 [Artificial Tear Drops] Artificial Tears-Hypromellose 1 drop BOTH EYES TID PRN 08/18/23 08/18/23 [Artificial Tear Drops] Chlorhexidine Gluconate [Peridex] 15 ml PO BID 08/18/23 08/18/23 Furosemide [Lasix] 40 mg PO DAILY 08/18/23 08/18/23 Augustina-Lanta 30 ml PO Q6H PRN 08/18/23 08/18/23 Levothyroxine Sodium [Synthroid] 75 mcg PO DAILY@0500 08/18/23 08/18/23 Menthol [Waite] 7.5 mg MM DIRECTED PRN 08/18/23 08/18/23 Phenyleph/Mineral Oil/Petrolat 1 applic RECTAL DAILY PRN 08/18/23 08/18/23 [Preparation H Ointment] Phenylephrine HCl/[place] Butter 1 supp RECTAL BID PRN 08/18/23 08/18/23 [Preparation H Suppository] cycloSPORINE [Restasis Multidose] 1 drop BOTH EYES BID 08/18/23 08/18/23 Previous Rx's Medication Instructions Recorded Pantoprazole [Protonix] 40 mg PO DAILY #60 tab 08/20/23 Sucralfate [Carafate] 1 gm PO BID #60 tablet 08/20/23 Gabapentin [Neurontin] 100 mg PO HS #4 cap 08/21/23 Allergies Allergy/AdvReac Type Severity Reaction Status Date / Time Penicillins Allergy Unknown Verified 08/18/23 07:05 Childhood Review of Systems ROS Statement: Those systems with pertinent positive or pertinent negative responses have been documented in the HPI. ROS Other: All systems not noted in ROS Statement are negative. Constitutional: Denies: fever, chills ENT: Denies: throat pain Respiratory: Denies: cough, dyspnea Cardiovascular: Reports: chest pain. Denies: palpitations, edema, syncope Gastrointestinal: Denies: abdominal pain, nausea, vomiting, diarrhea Genitourinary: Reports: other ( is indwelling catheter) Musculoskeletal: Denies: back pain Skin: Denies: rash Neurological: Denies: headache, weakness, numbness EKG Findings - EKG Results: EKG: interpreted by ERMD, sinus rhythm (with occasional ectopic complex, rate 67 bpm) - Blocks, [place], Hypertrophy, ST Abn: QRS axis and voltage: left axis deviation (-30 to -90), pulmonary disease, low voltage (<0.5 MV total QRS and <1.0 MV in each precordial lead) Past Medical History Past Medical History: Atrial Fibrillation, Coronary Artery Disease (CAD), Cancer, Hypertension, Myocardial Infarction ([place]), Osteoarthritis (OA), Rheumatoid Arthritis (RA), Thyroid Disorder Additional Past Medical History / Comment(s): Afib RVR, [place] per EKG over 40 yrs ago, bilateral lower leg/pedal edema, UTIs, diverticular disease, hypothyroid, Sjogren's syndrome, past gallbladder problems corrected with diet. NO BLOOD OR BLOOD PRODUCTS. HEMORRHOIDS, HAS PERMANENT BLADDER CATHETER, SKIN CANCER Last Myocardial Infarction Date:: over 40 yrs ago History of Any Multi-Drug Resistant Organisms: None Reported Past Surgical History: Bladder Surgery, Heart Catheterization With Stent, Hysterectomy, Joint Replacement, Tonsillectomy Additional Past Surgical History / Comment(s): R total knee arthroplasty, bladder suspension, colonoscopy, BILAT CATARACTS REMOVED WITH LENS IMPLANTS Past Anesthesia/Blood Transfusion Reactions: Motion Sickness Additional Past Anesthesia/Blood Transfusion Reaction / Comment(s): PT IS JEHOVAH WITNESS AND DOES NOT RECEIVE BLOOD OR BLOOD PRODUCTS. Pt has claustrophobia. Date of Last Stent Placement:: UNK Past Psychological History: Anxiety, Depression Smoking Status: Never smoker Past Alcohol Use History: None Reported Past Drug Use History: None Reported - Past Family History Mother Family Medical History: Eye Disorder, Myocardial Infarction ([place]) Additional Family Medical History / Comment(s): Mother had [place] in her 60s. She was legally blind from macular degeneration. Father Family Medical History: Cancer Additional Family Medical History / Comment(s): Father from lung/laryngeal cancer with mets to brain. General Exam General appearance: alert, in no apparent distress Head exam: Present: atraumatic, normocephalic Eye exam: Present: normal appearance. Absent: scleral icterus, conjunctival injection Neck exam: Present: normal inspection Respiratory exam: Present: normal lung sounds bilaterally. Absent: respiratory distress, wheezes, rales, rhonchi, stridor Cardiovascular Exam: Present: regular rate, normal rhythm, normal heart sounds. Absent: systolic murmur, diastolic murmur, rubs, gallop GI/Abdominal exam: Present: soft. Absent: distended, tenderness, guarding, rebound, rigid, mass Extremities exam: Present: normal inspection, normal capillary refill. Absent: pedal edema, calf tenderness Neurological exam: Present: alert Skin exam: Present: warm, dry, intact, normal color. Absent: rash Course Vital Signs 08/18/23 08/18/23 08/18/23 01:17 03:00 06:12 Temperature 98.0 F Pulse Rate 62 64 63 Respiratory 18 18 18 Rate Blood Pressure 138/60 111/50 106/60 O2 Sat by Pulse 96 98 96 Oximetry Chest Pain MDM - MDM The patient had chest x-ray that I interpreted as negative for acute infiltrate, pneumothorax, congestive heart failure Was pt. sent in by a medical professional or institution (, FELICITAS, TUBULAR STOCK GLASS BULB MACHINE FORMER, urgent care, hospital, or senior care...) When possible be specific @ -[No] Did you speak to anyone other than the patient for history (EMS, parent, family, police, friend...)? What history was obtained from this source @ -[No] Did you review nursing and triage notes (agree or disagree)? Why? @ -[I reviewed and agree with nursing and triage notes] Were old charts reviewed (outside hosp., previous admission, EMS record, old EKG, old radiological studies, urgent care reports/EKG's, senior care records)? Report findings @ -[No old charts were reviewed] Differential Diagnosis (chest pain, altered mental status, abdominal pain women, abdominal pain men, vaginal bleeding, weakness, fever, dyspnea, syncope, headache, dizziness, GI bleed, back pain, seizure, CVA, palpatations, mental health, musculoskeletal)? @ -[Differential Chest Pain: Stable Angina, Unstable Angina, STEMI, NSTEMI Aortic Dissection, Pneumothorax, Musculoskeletal, Esophageal Spasm GERD, Cholecystitis, Pancreatitis, Zoster, this is not meant to be an all-inclusive list. EKG interpreted by me (3pts min.). @ -[I interpreted as above] X-rays interpreted by me (1pt min.). @ -[I interpreted as above CT interpreted by me (1pt min.). @ -[None done] U/S interpreted by me (1pt. min.). @ -[None done] What testing was considered but not performed or refused? (CT, X-rays, U/S, labs)? Why? @ -[None] What meds were considered but not given or refused? Why? @ -[None] Did you discuss the management of the patient with other professionals (professionals i.e. FELICITAS Fallon, T[employer] MACHINE FORMER, lab, RT, psych nurse, social media senior associate, atm manager, teacher, security control room officer, manager rn case)? Give summary @ -[Patient is an 87-year-old woman here with chest pain, she will be admitted to have further evaluation including serial cardiac enzymes, telemetry monitoring, cardiology consultation. Case discussed with admitting physician and treatment recommendations incorporated Was smoking cessation discussed for >3mins.? @ -[No] Was critical care preformed (if so, how long)? @ -[No] Were there social determinants of health that impacted care today? How? (Homelessness, low income, unemployed, alcoholism, drug addiction, transportation, low edu. Level, literacy, decrease access to med. care, [facility], rehab)? @ -[No] Was there de-escalation of care discussed even if they declined (Discuss DNR or withdrawal of care, Hospice)? DNR status @ -[No] What co-morbidities impacted this encounter? (DM, HTN, Smoking, COPD, CAD, Cancer, CVA, ARF, Chemo, Hep., AIDS, mental health diagnosis, sleep apnea, morbid obesity)? @ -[Hypertension Was patient admitted / discharged? Hospital course, mention meds given and route, prescriptions, significant lab abnormalities, going to OR and other pertinent info. @ -[As above Undiagnosed new problem with uncertain prognosis? @ -[No] Drug Therapy requiring intensive monitoring for toxicity (Heparin, Nitro, Insulin, Cardizem)? @ -[No] Were any procedures done? @ -[No] Diagnosis/symptom? @ -[Acute chest pain Acute, or Chronic, or Acute on Chronic? @ -[Acute Uncomplicated (without systemic symptoms) or Complicated (systemic symptoms)? @ -[Uncomplicated Side effects of treatment? @ -[No] Exacerbation, Progression, or Severe Exacerbation? @ -[No] Poses a threat to life or bodily function? How? (Chest pain, [place], [place], pneumonia, PE, COPD, DKA, ARF, appy, cholecystitis, CVA, Diverticulitis, Homicidal, Suicidal, threat to staff... and all critical care pts) @ -[No] Disposition Clinical Impression: Chest pain Disposition: ADMITTED IP TO THIS HOSP Condition: Fair Is patient prescribed a controlled substance at d/c from ED?: No
[2023-08-18 02:19] LABS: MCV 90.4 fL (80.0-100.0)
[2023-08-18] MEDS: MAG HYDROX/AL HYDROX/SIMETH 30 ML, HYOSCYAMINE ELIXIR 10 ML, LIDOCAINE VISCOUS 2% 10 ML PO STA (02:33)
[2023-08-18] MEDS: MORPHINE SULFATE 4 MG/ML SYRINGE IV STA (02:35)
[2023-08-18 02:37] LABS: ALT 19 U/L (4-34); AST 25 U/L (14-36); African American GFR (CKD) 61 (>60 ml/min/1.73 sqM); Albumin 3.7 g/dL (3.5-5.0); Alkaline Phosphatase 63 U/L (38-126); Anion Gap 7 mmol/L; Blood Urea Nitrogen 17 mg/dL (7-17); Carbon Dioxide 26 mmol/L (22-30); Chloride 104 mmol/L (98-107); Glucose 102 mg/dL (74-99); Magnesium 2.2 mg/dL (1.6-2.3); Non-African American GFR(CKD) 53 (>60 ml/min/1.73 sqM); Potassium 3.9 mmol/L (3.5-5.1); Sodium 137 mmol/L (137-145); Total Bilirubin 0.5 mg/dL (0.2-1.3); Total Protein 6.3 g/dL (6.3-8.2)
[2023-08-18] MEDS ORDERED: NITROGLYCERIN SL TABS 0.4 MG TAB SUBLINGUAL PRN (02:58)
[2023-08-18] MEDS: SODIUM CHLORIDE 0.9% 1,000 ML IV SCH (03:45)
[2023-08-18] MEDS ORDERED: MAG HYDROX/AL HYDROX/SIMETH 30 ML CUP PO PRN (09:18)
[2023-08-18] MEDS ORDERED: COCOA BUTTER RECTAL PRN (09:18)
[2023-08-18] MEDS ORDERED: PHENYLEPHRINE HCL RECTAL PRN (09:18)
[2023-08-18] MEDS ORDERED: [UNRECOGNIZED DRUG - OTHER] RECTAL PRN (09:18)
[2023-08-18] MEDS ORDERED: ALBUTEROL NEBULIZED 2.5 MG/3 ML INHALATION PRN (09:18)
[2023-08-18] MEDS ORDERED: BENZOCAINE/MENTHOL LOZENG 1 EACH LOZENGE MUCOUS MEM PRN (09:18)
[2023-08-18] MEDS: HYDROXYCHLOROQUINE SULFATE 200 MG TAB PO SCH (10:31)
[2023-08-18] MEDS: AMIODARONE 100 MG TAB PO SCH (10:31)
[2023-08-18] MEDS: cycloSPORINE 0.05% OPHTH 0.4 ML DROPERETTE BOTH EYES SCH (10:32)
[2023-08-18] MEDS: FUROSEMIDE 40 MG TAB PO SCH (10:39)
[2023-08-18] MEDS: MULTIVITAMINS, THERA 1 EACH TAB PO SCH (10:39)
[2023-08-18] MEDS: PANTOPRAZOLE SODIUM 40 MG GRANULE PKT PO SCH (10:39)
[2023-08-18] MEDS: POTASSIUM CHLORIDE ER 10 MEQ TAB.ER.PRT PO SCH (10:39)
[2023-08-18] MEDS: APIXABAN 2.5 MG TABLET PO SCH (10:39)
[2023-08-18] MEDS: METOPROLOL TARTRATE 12.5 MG TAB PO SCH (10:51)
--- NOTE | 2023-08-18 12:00 | P.HPIM ---
History of Present Illness H&P Date: 08/18/23 History of present illness; patient is a 87-year-old lady with past medical history significant for atrial fibrillation, hypertension, hypothyroidism, who presented to ER for chest pain. Patient is a resident of an [facility] facility, states that she was all right yesterday when he started noticing chest pressure retrosternal in location, pressure-like, nonradiating, no relieving factor associated with this chest pain. Patient did mention that the chest pain does not occur after eating food after a couple of hours. Denies any orthopnea or PND. There is no complaint of shortness of breath. No complaint of nausea vomiting abdominal pain. Because of the symptoms, patient brought to the ER Initial lab work done in the ER showed WBC 5.9, hemoglobin 13.5, platelet count 200, sodium 137, potassium 3.9, BUN 17, creatinine 0.96, glucose 102, troponin 0.012 EKG done in the ER showed heart rate of 67, no ST segment elevation or depression seen, no T-wave inversions seen. Chest x-ray done in the ER no suspicious for acute process Patient admitted to internal medicine service REVIEW OF SYSTEMS: CONSTITUTIONAL: No fever, no malaise, no fatigue. HEENT: No recent visual problems or hearing problems. Denied any sore throat. CARDIOVASCULAR: As mentioned above PULMONARY: As mentioned above GASTROINTESTINAL: No diarrhea, no nausea, no vomiting, no abdominal pain. Complaining of difficulty in swallowing NEUROLOGICAL: No headaches, no weakness, no numbness. HEMATOLOGICAL: Denies any bleeding or petechiae. GENITOURINARY: Denies any burning micturition, frequency, or urgency. MUSCULOSKELETAL/RHEUMATOLOGICAL: Denies any joint pain, swelling, or any muscle pain. ENDOCRINE: Denies any polyuria or polydipsia. The rest of the 14-point review of systems is negative. PHYSICAL EXAMINATION: GENERAL: The patient is alert and oriented x3, not in any acute distress. Well developed, well nourished. HEENT: Pupils are round and equally reacting to light. EOMI. No scleral icterus. No conjunctival pallor. Normocephalic, atraumatic. No pharyngeal erythema. No thyromegaly. CARDIOVASCULAR: S1 and S2 present. No murmurs, rubs, or gallops. PULMONARY: Chest is clear to auscultation, no wheezing or crackles. ABDOMEN: Soft, nontender, nondistended, normoactive bowel sounds. No palpable or ganomegaly. MUSCULOSKELETAL: No joint swelling or deformity. EXTREMITIES: No cyanosis, clubbing, or pedal edema. NEUROLOGICAL: Gross neurological examination did not reveal any focal deficits. SKIN: No rashes. Assessment and plan Chest pain, rule out acute coronary syndrome Dysphagia History of atrial fibrillation Hypothyroidism History of coronary disease Hypothyroidism Monitor vital signs Monitor CBC Monitor CMP Continue telemetry monitoring Trend troponin Resume Eliquis ResumeAmiodarone, Lopressor Added Prilosec Consult cardiology Consult surgery Labs and medication were reviewed.. Continue same treatment. Continue with symptomatic treatment. Resume home medication. Monitor labs and vitals. DVT and GI prophylaxis. Further recommendations as per clinical course of the patient Dictation was produced using [employer] dictation software. please excuse any g rammatical, word or spelling errors. Past Medical History Past Medical History: Atrial Fibrillation, Coronary Artery Disease (CAD), Cancer, Hypertension, Myocardial Infarction ([place]), Osteoarthritis (OA), Rheumatoid Arthritis (RA), Thyroid Disorder Additional Past Medical History / Comment(s): Afib RVR, [place] per EKG over 40 yrs ago, bilateral lower leg/pedal edema, UTIs, diverticular disease, hypothyroid, Sjogren's syndrome, past gallbladder problems corrected with diet. NO BLOOD OR BLOOD PRODUCTS. HEMORRHOIDS, HAS PERMANENT BLADDER CATHETER, SKIN CANCER Last Myocardial Infarction Date:: over 40 yrs ago History of Any Multi-Drug Resistant Organisms: None Reported Past Surgical History: Bladder Surgery, Heart Catheterization With Stent, Hysterectomy, Joint Replacement, Tonsillectomy Additional Past Surgical History / Comment(s): R total knee arthroplasty, bladder suspension, colonoscopy, BILAT CATARACTS REMOVED WITH LENS IMPLANTS Past Anesthesia/Blood Transfusion Reactions: Motion Sickness Additional Past Anesthesia/Blood Transfusion Reaction / Comment(s): PT IS JEHOVAH WITNESS AND DOES NOT RECEIVE BLOOD OR BLOOD PRODUCTS. Pt has claustrophobia. Date of Last Stent Placement:: UNK Past Psychological History: Anxiety, Depression Smoking Status: Never smoker Past Alcohol Use History: None Reported Past Drug Use History: None Reported - Past Family History Mother Family Medical History: Eye Disorder, Myocardial Infarction ([place]) Additional Family Medical History / Comment(s): Mother had [place] in her 60s. She was legally blind from macular degeneration. Father Family Medical History: Cancer Additional Family Medical History / Comment(s): Father from lung/laryngeal cancer with mets to brain. Medications and Allergies Home Medications Medication Instructions Recorded Confirmed Type Cranberry Fruit Extract [Cranberry] 500 mg PO DAILY 06/13/16 08/18/23 History Amiodarone [Cordarone] 100 mg PO DAILY 08/07/17 08/18/23 History Apixaban [Eliquis] 2.5 mg PO BID 05/10/19 08/18/23 History Metoprolol Tartrate [Lopressor] 12.5 mg PO BID 05/10/19 08/18/23 History Potassium Chloride ER [K-Dur 10] 10 meq PO DAILY 05/10/19 08/18/23 History Gabapentin [Neurontin] 100 mg PO HS 10/01/22 08/18/23 History Hydroxychloroquine Sulfate 200 mg PO BID 10/01/22 08/18/23 History [Plaquenil] Multivitamins, Thera [Multivitamin 1 tab PO DAILY 10/01/22 08/18/23 History (formulary)] Acetaminophen Tab [Tylenol Tab] 500 mg PO QID@05,,,08/18/23 08/18/23 History Albuterol Sulfate [Ventolin HFA] 2 puff INHALATION RT-Q6H PRN 08/18/23 08/18/23 History Artificial Tears-Hypromellose 1 drop BOTH EYES BID 08/18/23 08/18/23 History [Artificial Tear Drops] Artificial Tears-Hypromellose 1 drop BOTH EYES TID PRN 08/18/23 08/18/23 History [Artificial Tear Drops] Chlorhexidine Gluconate [Peridex] 15 ml PO BID 08/18/23 08/18/23 History Furosemide [Lasix] 40 mg PO DAILY 08/18/23 08/18/23 History Augustina-Lanta 30 ml PO Q6H PRN 08/18/23 08/18/23 History Levothyroxine Sodium [Synthroid] 75 mcg PO DAILY@0500 08/18/23 08/18/23 History Menthol [Comfrey] 7.5 mg MM DIRECTED PRN 08/18/23 08/18/23 History Phenyleph/Mineral Oil/Petrolat 1 applic RECTAL DAILY PRN 08/18/23 08/18/23 History [Preparation H Ointment] Phenylephrine HCl/[place] Butter 1 supp RECTAL BID PRN 08/18/23 08/18/23 History [Preparation H Suppository] cycloSPORINE [Restasis Multidose] 1 drop BOTH EYES BID 08/18/23 08/18/23 History Allergies Allergy/AdvReac Type Severity Reaction Status Date / Time Penicillins Allergy Unknown Verified 08/18/23 07:05 Childhood Physical Exam Vitals: Vital Signs Temp Pulse Pulse Resp BP BP Pulse Ox 08/18/23 07:51 98.5 F 75 17 127/81 97 08/18/23 06:12 63 18 106/60 96 08/18/23 03:00 64 18 111/50 98 08/18/23 01:17 98.0 F 62 18 138/60 96 Intake and Output 08/17/23 08/18/23 08/18/23 22:59 06:59 14:59 Other: Weight 88.904 kg 88.5 kg Results CBC & Chem 7: 08/18/23 01:21 08/18/23 01:21 Labs: Abnormal Lab Results - Last 24 Hours (Table) 08/18/23 Range/Units 01:21 Glucose 102 H (74-99) mg/dL
[2023-08-18] MEDS: ACETAMINOPHEN TAB 500 MG TAB PO SCH (12:41)
--- NOTE | 2023-08-18 15:06 | CONS ---
CONSULTATION HISTORY OF PRESENT ILLNESS: This is an elderly 87-year-old lady who is a resident of [facility], has come in to the hospital complaining of sharp pain in the chest. Quality of pain seems very atypical. She has history of paroxysmal atrial fib, atypical chest pain, hypertension. She is in a sinus rhythm today, resting comfortably. Her pain appears to be more or less in the epigastric area. She sees Dr. Quigley in the outpatient setting. She is resting comfortably without symptoms. PAST MEDICAL HISTORY: 1. History of atypical chest pain. 2. Paroxysmal atrial fibrillation. 3. Hypertension. 4. Lower extremity edema, chronic, probably related to venous insufficiency. MEDICATIONS AT HOME: 1. 2.5 mg of apixaban b.i.d. 2. Amiodarone 100 mg daily. 3. Synthroid 75 mcg daily. 4. Metoprolol tartrate 12.5 mg b.i.d. 5. Some albuterol inhaler. PHYSICAL EXAMINATION: VITAL SIGNS: Blood pressure is 118/70, pulse rate is 70 regular. HEENT: Unremarkable, fundus was not examined. NECK: Supple. There is no JVD, no carotid bruit. HEART: Reveals S1, S2 heard normally. No significant murmurs are audible. LUNGS: Reveal bilateral decent air entry. ABDOMEN: Soft. EXTREMITIES: Lower extremities reveal chronic edema, diminished pulses. NEUROLOGIC: Central nervous system is normal. EKG revealed sinus mechanism, wandering baseline, no acute changes. LABORATORY DATA: Suggested that 2 troponin levels are normal. Thyroid function is normal. IMPRESSION: 1. Atypical chest pain. 2. Probable gastroesophageal reflux disease. Her symptoms are more in the epigastric area. 3. History of paroxysmal atrial fib, currently in sinus rhythm. RECOMMENDATIONS: Recommending omeprazole and increase activity, discharge and to see Dr. Quigley as an outpatient in the next 2 weeks. MMODL / IJN: [id number] /
--- NOTE | 2023-08-18 16:34 | P.GSCN ---
History of Present Illness Consult date: 08/18/23 History of present illness: CHIEF COMPLAINT: Reflux with chest pain HISTORY OF PRESENT ILLNESS: This is a 87-year-old female who presented the hospital with complaints of chest pain. Patient reports that she was having acid reflux after eating. She reports taking antacid but no improvement in her symptoms. She reports that she felt discomfort in the center of her chest as well as like a lump like sensation in her throat after eating a cracker. Patient has had prior EGD and colonoscopy in September 2022 that had reported AVMs in the transverse colon diverticulosis and internal and external hemorrhoids. EGD had reported duodenitis, gastritis diaphragmatic hiatal hernia and atrial venous malformations. Patient evaluated by cardiology service and they felt the chest pain was atypical and likely related to GERD. Patient denies any vomiting. Denies any abdominal pain. PAST MEDICAL HISTORY: See list. PAST SURGICAL HISTORY: See list. MEDICATIONS: See list. ALLERGIES: See list. SOCIAL HISTORY: No illicit drug use. REVIEW OF SYSTEMS: CONSTITUTIONAL: Denies fever or chills. HEENT: Denies blurred vision, vision changes, or eye pain. Denies hemoptysis ENDOCRINE: Denies heat or cold intolerance. CARDIOVASCULAR: Denies chest pain or pressure. RESPIRATORY: No shortness of breath. GASTROINTESTINAL: Denies abdominal pain. Denies nausea or vomiting. NEURO: Denies history of seizures. PSYCH: No depression or suicidal ideation HEMATOLOGIC: Denies bleeding disorders. LYMPHATIC: The patient denies any lumps and bumps around the neck. GENITOURINARY: Denies any blood in urine or increased urinary frequency. MUSCULOSKELETAL: Denies myalgias. Denies joint swelling. Denies decreased range of motion beyond patients baseline. SKIN: Denies pruitis. Denies rash. PHYSICAL EXAM: VITAL SIGNS: Reviewed GENERAL: Well-developed in no acute distress. HEENT: No sclera icterus. Extraocular movements grossly intact. Moist buccal mucosa. Head is atraumatic, normocephalic. Hears conversational speech. No nasal drainage. NECK: Supple without lymphadenopathy. CHEST: Non-labored respirations and equal bilateral excursions. CARDIOVASCULAR: Palpable 2+ radial pulses. ABDOMEN: Soft. Nondistended. Nontender MUSCULOSKELETAL: No clubbing or cyanosis. NEUROLOGIC: No focal or lateralizing signs. Cranial nerves II through XII grossly intact. PSYCH: Appropriate affect. Alert and oriented to person, place and time. SKIN: Well perfused. Good skin turgor. LABORATORY DATA: WBC is 5.9 Hgb 13.5 platelets 200 Sodium is 137 potassium 3.9 creatinine 0.96 Troponin negative x 2 IMAGING: ASSESSMENT: 1. Dysphagia 2. Acid reflux 3. History of hiatal hernia 4. Atypical chest pain evaluated by cardiology 5. History of A-fib PLAN: -Patient scheduled for EGD with dilation on 08/20/[address] Dover -Geno Navarro for procedure -Continue Protonix -Change diet to full liquids Physician Helper Shear Operator note has been reviewed by physician. Signing provider agrees with the documented findings, assessment, and plan of care. Past Medical History Past Medical History: Atrial Fibrillation, Coronary Artery Disease (CAD), Cancer, Hypertension, Myocardial Infarction (PA), Osteoarthritis (OA), Rheumatoid Arthritis (RA), Thyroid Disorder Additional Past Medical History / Comment(s): Afib RVR, PA per EKG over 40 yrs ago, bilateral lower leg/pedal edema, UTIs, diverticular disease, hypothyroid, Sjogren's syndrome, past gallbladder problems corrected with diet. NO BLOOD OR BLOOD PRODUCTS. HEMORRHOIDS, HAS PERMANENT BLADDER CATHETER, SKIN CANCER Last Myocardial Infarction Date:: over 40 yrs ago History of Any Multi-Drug Resistant Organisms: None Reported Past Surgical History: Bladder Surgery, Heart Catheterization With Stent, Hysterectomy, Joint Replacement, Tonsillectomy Additional Past Surgical History / Comment(s): R total knee arthroplasty, bladder suspension, colonoscopy, BILAT CATARACTS REMOVED WITH LENS IMPLANTS Past Anesthesia/Blood Transfusion Reactions: Motion Sickness Additional Past Anesthesia/Blood Transfusion Reaction / Comm: PT IS JEHOVAH WITNESS AND DOES NOT RECEIVE BLOOD OR BLOOD PRODUCTS. Pt has claustrophobia. Date of Last Stent Placement:: UNK Past Psychological History: Anxiety, Depression Smoking Status: Never smoker Past Alcohol Use History: None Reported Past Drug Use History: None Reported - Past Family History Mother Family Medical History: Eye Disorder, Myocardial Infarction (PA) Additional Family Medical History / Comment(s): Mother had PA in her 60s. She was legally blind from macular degeneration. Father Family Medical History: Cancer Additional Family Medical History / Comment(s): Father from lung/laryngeal cancer with mets to brain. Medications and Allergies Home Medications Medication Instructions Recorded Confirmed Type Cranberry Fruit Extract [Cranberry] 500 mg PO DAILY 06/13/16 08/18/23 History Amiodarone [Cordarone] 100 mg PO DAILY 08/07/17 08/18/23 History Apixaban [Eliquis] 2.5 mg PO BID 05/10/19 08/18/23 History Metoprolol Tartrate [Lopressor] 12.5 mg PO BID 05/10/19 08/18/23 History Potassium Chloride ER [K-Dur 10] 10 meq PO DAILY 05/10/19 08/18/23 History Gabapentin [Neurontin] 100 mg PO HS 10/01/22 08/18/23 History Hydroxychloroquine Sulfate 200 mg PO BID 10/01/22 08/18/23 History [Plaquenil] Multivitamins, Thera [Multivitamin 1 tab PO DAILY 10/01/22 08/18/23 History (formulary)] Acetaminophen Tab [Tylenol Tab] 500 mg PO QID@05,,,08/18/23 08/18/23 History Albuterol Sulfate [Ventolin HFA] 2 puff INHALATION RT-Q6H PRN 08/18/23 08/18/23 History Artificial Tears-Hypromellose 1 drop BOTH EYES BID 08/18/23 08/18/23 History [Artificial Tear Drops] Artificial Tears-Hypromellose 1 drop BOTH EYES TID PRN 08/18/23 08/18/23 History [Artificial Tear Drops] Chlorhexidine Gluconate [Peridex] 15 ml PO BID 08/18/23 08/18/23 History Furosemide [Lasix] 40 mg PO DAILY 08/18/23 08/18/23 History Augustina-Lanta 30 ml PO Q6H PRN 08/18/23 08/18/23 History Levothyroxine Sodium [Synthroid] 75 mcg PO DAILY@0500 08/18/23 08/18/23 History Menthol [[place]] 7.5 mg MM DIRECTED PRN 08/18/23 08/18/23 History Phenyleph/Mineral Oil/Petrolat 1 applic RECTAL DAILY PRN 08/18/23 08/18/23 History [Preparation H Ointment] Phenylephrine HCl/[place] Butter 1 supp RECTAL BID PRN 08/18/23 08/18/23 History [Preparation H Suppository] cycloSPORINE [Restasis Multidose] 1 drop BOTH EYES BID 08/18/23 08/18/23 History Allergies Allergy/AdvReac Type Severity Reaction Status Date / Time Penicillins Allergy Unknown Verified 08/18/23 07:05 Childhood Surgical - Exam Vital Signs Temp Pulse Resp BP Pulse Ox 98.0 F 62 18 138/60 96 08/18/23 01:17 08/18/23 01:17 08/18/23 01:17 08/18/23 01:17 08/18/23 01:17 Results - Labs 08/18/23 01:21 08/18/23 01:21 Abnormal Lab Results - Last 24 Hours (Table) 08/18/23 Range/Units 01:21 Glucose 102 H (74-99) mg/dL Diabetes panel 08/18/23 Range/Units 01:21 Sodium 137 (137-145) mmol/L Potassium 3.9 (3.5-5.1) mmol/L Chloride 104 (98-107) mmol/L Carbon Dioxide 26 (22-30) mmol/L BUN 17 (7-17) mg/dL Creatinine 0.96 (0.52-1.04) mg/dL Glucose 102 H (74-99) mg/dL Calcium 9.0 (8.4-10.2) mg/dL AST 25 (14-36) U/L ALT 19 (4-34) U/L Alkaline Phosphatase 63 (38-126) U/L Total Protein 6.3 (6.3-8.2) g/dL Albumin 3.7 (3.5-5.0) g/dL Thyroid panel 08/18/23 Range/Units 01:21 TSH 2.010 (0.465-4.680) mIU/L Calcium panel 08/18/23 Range/Units 01:21 Calcium 9.0 (8.4-10.2) mg/dL Albumin 3.7 (3.5-5.0) g/dL Pituitary panel 08/18/23 08/18/23 Range/Units 01:21 01:21 Sodium 137 (137-145) mmol/L Potassium 3.9 (3.5-5.1) mmol/L Chloride 104 (98-107) mmol/L Carbon Dioxide 26 (22-30) mmol/L BUN 17 (7-17) mg/dL Creatinine 0.96 (0.52-1.04) mg/dL Glucose 102 H (74-99) mg/dL Calcium 9.0 (8.4-10.2) mg/dL TSH 2.010 (0.465-4.680) mIU/L Adrenal panel 08/18/23 Range/Units 01:21 Sodium 137 (137-145) mmol/L Potassium 3.9 (3.5-5.1) mmol/L Chloride 104 (98-107) mmol/L Carbon Dioxide 26 (22-30) mmol/L BUN 17 (7-17) mg/dL Creatinine 0.96 (0.52-1.04) mg/dL Glucose 102 H (74-99) mg/dL Calcium 9.0 (8.4-10.2) mg/dL Total Bilirubin 0.5 (0.2-1.3) mg/dL AST 25 (14-36) U/L ALT 19 (4-34) U/L Alkaline Phosphatase 63 (38-126) U/L Total Protein 6.3 (6.3-8.2) g/dL Albumin 3.7 (3.5-5.0) g/dL
[2023-08-18] MEDS: GABAPENTIN 100 MG CAP PO SCH (20:35)
[2023-08-19] MEDS: BENZOCAINE 20% HEMORRHOIDAL OINT 28GM RECTAL PRN (00:25)
[2023-08-19] MEDS: LEVOTHYROXINE 75 MCG TAB PO SCH (06:17)
[2023-08-19] MEDS: ASPIRIN 325 MG TAB PO SCH (09:14)
[2023-08-19 11:04] LABS: Chol/HDL Ratio 2.44 Ratio; LDL Cholesterol,Calculated 42.4 mg/dL (0.0-131.0)
[2023-08-19] MEDS: ENOXAPARIN 60 MG/0.6 ML SYRINGE SQ SCH (11:14)
--- NOTE | 2023-08-19 16:20 | P.PN ---
Subjective Progress Note Date: 08/19/23 CHIEF COMPLAINT: Dysphagia HISTORY OF PRESENT ILLNESS: Patient continues to complain of issues of dysphag ia. She is on a full liquids. She does report that it does feel that it sticks in her throat. Patient was having chest pain with oral intake prior to and on admission. She denies any vomiting. Acid reflux improving. Afebrile. Denies abdominal pain. PHYSICAL EXAM: VITAL SIGNS: Reviewed GENERAL: Well-developed in no acute distress. HEENT: No sclera icterus. Extraocular movements grossly intact. Moist buccal mucosa. Head is atraumatic, normocephalic. Hears conversational speech. No nasal drainage. NECK: Supple without lymphadenopathy. CHEST: Non-labored respirations and equal bilateral excursions. CARDIOVASCULAR: Palpable 2+ radial pulses. ABDOMEN: Soft. Nondistended. Nontender. MUSCULOSKELETAL: No clubbing or cyanosis. NEUROLOGIC: No focal or lateralizing signs. Cranial nerves II through XII grossly intact. PSYCH: Appropriate affect. Alert and oriented to person, place and time. SKIN: Well perfused. Good skin turgor. ASSESSMENT: 1. Possible esophageal obstruction. Patient having chest pain with oral intake 2. Severe dysphagia 3. Hypertensive esophageal dysmotility PLAN: -Patient scheduled for EGD with dilation tomorrow, 08/20/[address] Dover -N.p.o. after midnight Physician Cardiac Monitor note has been reviewed by physician. Signing provider agrees with the documented findings, assessment, and plan of care. Objective - Vital Signs Vital signs: Vital Signs Temp 97.5 F L 08/19/23 08:00 Pulse 61 08/19/23 08:00 Resp 16 08/19/23 08:00 BP 155/76 08/19/23 08:00 Pulse Ox 95 08/19/23 08:00 FiO2 Intake & Output 08/18/23 08/19/23 08/19/23 18:59 06:59 18:59 Intake Total 478 Output Total 700 200 Balance -222 -200 Weight 88.5 kg Intake: Oral 478 Output: Urine 700 200 Other: Voiding Method Indwelling Catheter Indwelling Catheter Indwelling Catheter # Voids 790 1 # Bowel Movements 1 - Labs CBC & Chem 7: 08/18/23 01:21 08/18/23 01:21
--- NOTE | 2023-08-19 20:34 | P.PN ---
Subjective History of present illness; patient is a 87-year-old lady with past medical history significant for atrial fibrillation, hypertension, hypothyroidism, who presented to ER for chest pain. Patient is a resident of an [facility] facility, states that she was all right yesterday when he started noticing chest pressure retrosternal in location, pressure-like, nonradiating, no relieving factor associated with this chest pain. Patient did mention that the chest pain does not occur after eating food after a couple of hours. Denies any orthopnea or PND. There is no complaint of shortness of breath. No complaint of nausea vomiting abdominal pain. Because of the symptoms, patient brought to the ER Initial lab work done in the ER showed WBC 5.9, hemoglobin 13.5, platelet count 200, sodium 137, potassium 3.9, BUN 17, creatinine 0.96, glucose 102, troponin 0.012 EKG done in the ER showed heart rate of 67, no ST segment elevation or depression seen, no T-wave inversions seen. Chest x-ray done in the ER no suspicious for acute process Patient admitted to internal medicine service 08/19/2023 Patient sitting looks comfortable No specific complaint However patient has been complaining from dysphagia and odynophagia Patient also evaluated by framing manager most likely is noncardiac cause Patient is scheduled to undergo EGD with dilatation tomorrow with surgery team Patient Melanie on hold and she was placed on Lovenox 60 mg twice daily. Hold morning dose for the procedure Discussed with staff Objective - Vital Signs Vital signs: Vital Signs Temp 97.5 F L 08/19/23 08:00 Pulse 61 08/19/23 08:00 Resp 16 08/19/23 08:00 BP 155/76 08/19/23 08:00 Pulse Ox 95 08/19/23 08:00 FiO2 Intake & Output 08/18/23 08/19/23 08/19/23 18:59 06:59 18:59 Intake Total 478 Output Total 700 200 Balance -222 -200 Weight 88.5 kg Intake: Oral 478 Output: Urine 700 200 Other: Voiding Method Indwelling Catheter Indwelling Catheter Indwelling Catheter # Voids 790 # Bowel Movements 1 - Exam GENERAL: The patient is alert and oriented x3, not in any acute distress. Well developed, well nourished. HEENT: Pupils are round and equally reacting to light. EOMI. No scleral icterus. No conjunctival pallor. Normocephalic, atraumatic. No pharyngeal erythema. No thyromegaly. CARDIOVASCULAR: S1 and S2 present. No murmurs, rubs, or gallops. PULMONARY: Chest is clear to auscultation, no wheezing , no crackles. ABDOMEN: Soft, nontender, nondistended, normoactive bowel sounds. No palpable organomegaly. MUSCULOSKELETAL: No joint swelling or deformity. EXTREMITIES: No cyanosis, clubbing, or pedal edema. NEUROLOGICAL: Gross neurological examination did not reveal any focal deficits. SKIN: No rashes. no petechiae. - Labs CBC & Chem 7: 08/18/23 01:21 08/18/23 01:21 Assessment and Plan Assessment: Dysphagia and odynophagia, rule out esophageal stricture versus esophagitis Atypical chest pain, cardiology cleared the patient, most likely secondary to above History of GERD Hiatal hernia Paroxysmal A-fib on anticoagulation and rate controlled Plan: Continue symptomatic treatment Continue with Protonix Surgery team plan for EGD with dilatation tomorrow Cardiology already evaluated the patient Labs and medication were reviewed.. Continue same treatment. Continue with symptomatic treatment. Resume home medication. Monitor labs and vitals. DVT and GI prophylaxis. Further recommendations as per clinical course of the patient DVT prophylaxis: Subcutaneous h Lovenox GI Prophylaxis: Ppi Prognosis is guarded
[2023-08-20 11:20] LABS: HGB 13.1 g/dL (12.0-15.0); MCH 30.4 pg (27.0-32.0); MCHC 33.6 g/dL (32.0-37.0); MCV 90.5 FL (80.0-97.0); Mean Platelet Volume 10.4 FL (9.5-12.2); NRBC Per 100 WBC 0 X 10*3/uL (0.00-0.01); Platelet Count 193 X 10*3/uL (140-440); RBC 4.31 X 10*6/uL (4.10-5.20); WBC 3.83 X 10*3/uL (4.50-10.00)
[2023-08-20 11:41] LABS: BUN/Creat Ratio 10.82 Ratio (12.00-20.00); Blood Urea Nitrogen 11.9 mg/dL (9.0-27.0); Calcium 9.2 mg/dL (8.7-10.3); Carbon Dioxide 28.7 mmol/L (21.6-31.8); Chloride 103 mmol/L (96-109); Glucose 83 mg/dL (70-110); Potassium 4.5 mmol/L (3.5-5.5); Sodium 140 mmol/L (135-145)
[2023-08-20] MEDS ORDERED: LIDOCAINE 2% (PF) 20 MG/ML 5 ML VIAL ONE (11:56)
[2023-08-20] MEDS ORDERED: PROPOFOL 10 MG/ML 20 ML VIAL IV ONE (11:56)
[2023-08-20] MEDS: LACTATED RINGERS 1,000 ML IV ONE (12:00)
--- NOTE | 2023-08-20 13:19 | P.PCN ---
Date of Procedure: 08/20/23 Description of Procedure: PREOPERATIVE DIAGNOSIS: Dysphagia Intractable nausea and vomiting POSTOPERATIVE DIAGNOSIS: Gastroesophageal reflux disease. Esophageal ulcer with bleeding Gastritis Diaphragmatic hiatal hernia Esophageal dysmotility OPERATION: Esophagogastroduodenoscopy with biopsies along esophagus, antrum and duodenum SURGEON: Karyna Dover MD ANESTHESIA: MAC. INDICATIONS: The patient is a -year-old female who presents with dysphagia include intractable nausea and vomiting. Benefits and risks of the procedure were described. Informed consent was obtained. DESCRIPTION: The patient was brought into the endoscopy suite and laid in the left lateral decubitus position. An Olympus gastroscope was passed along the posterior oropharynx down to the distal esophagus where the squamocolumnar junction was encountered at 36 cm from the incisors. The stomach was entered and no bile reflux was found. Additional findings are listed below. Biopsies with cold forceps were obtained of the antrum. The first through third portion of the duodenum was examined. Retroflexion of the scope confirmed Hill grade 2 lower esophageal valve. The squamocolumnar junction demonstrated LA grade B erosive esophagitis. The stomach was desufflated. The patient tolerated the procedure well. FINDINGS: Squamocolumnar junction 436cm from the incisors. Diaphragmatic hiatus at 40 cm. Hiatal hernia, 4 cm Hill grade 2 lower esophageal valve. LA grade B erosive esophagitis with active bleeding esophageal ulcer, 1 cm x 5 mm. Biopsies obtained Biopsies obtained of the duodenum. Chronic gastritis with biopsies obtained. RECOMMENDATIONS: 1. Start Protonix 40 mg twice daily for 2 weeks then daily 2. Start Carafate 1 g twice daily 3. Warm beverages advised 4. Full liquid diet
--- NOTE | 2023-08-20 14:51 | P.DS ---
Providers Date of admission: 08/18/23 03:00 Attending physician: Kitty Martinez Consults: 08/18/23 02:58 Consult Physician Routine Consulting Provider: Norm Gonzalez Consult Reason/Comments: chest pain Do you want consulting provider notified?: Yes 08/18/23 11:29 Consult Physician Routine Consulting Provider: Karyna Dover Consult Reason/Comments: DYSPHAGIA Do you want consulting provider notified?: Yes Primary care physician: Rachel Bonner, Hospital Course: Diagnoses: Dysphagia and odynophagia, rule out esophageal stricture versus esophagitis. Status post EGD showing reflux esophagitis and about a esophageal ulcer with some bleeding. Patient needs to follow-up the biopsy as an outpatient Atypical chest pain, cardiology cleared the patient, most likely secondary to above. Improved Chronic gastritis. History of GERD Hiatal hernia Paroxysmal A-fib on anticoagulation and rate controlled Hospital course: History of present illness; patient is a 87-year-old lady with past medical history significant for atrial fibrillation, hypertension, hypothyroidism, who presented to ER for chest pain. Patient is a resident of an ECF facility, states that she was all right yesterday when he started noticing chest pressure retrosternal in location, her pain mainly in the lower chest or epigastric region. Evaluated by vamp wetter Dr. Ramirez and thought is noncardiac and atypical chest pain with no further recommendation other than follow-up outpatient with her vamp wetter Dr. Phillip in 2 weeks and patient is agreeable Patient was on Eliquis 2.5 mg at home which was put on hold since admission. She underwent EGD today with Dr. Zelaya: 1) LA grade B erosive esophagitis with active bleeding esophageal ulcer, 1 cm x 5 mm. Biopsies obtained. 2)Biopsies obtained of the duodenum. 3) Chronic gastritis with biopsies obtained. Patient needs to follow-up the biopsy as an outpatient Patient other than that she is sitting in chair comfortable, no significant chest pain or dyspnea. No other new complaint. Family at bedside all all questions answered Patient is agreeable to go to her ECF upon discharge Patient will be discharged today after she was cleared by surgery team to go back to her ECF. Patient will be discharged on Protonix and Carafate Problems and management plan were discussed with the patient and he verbalized understanding and acceptance Patient was found stable and can be discharged home in guarded prognosis however he needs follow-up as an outpatient. Patient was instructed to follow up with PCP within one week and patient agrees Patient was instructed to follow-up with Dr. Flores in 1 to 2 weeks. Physical exam Gen: patient is a AAOx3, no distress CVS: S1-S2, RRR, no murmur Lungs: B/L CTA, no wheezing Abdomen: soft, no distention, no tenderness, positive bowel sounds Extremity: no leg edema or induration Time spent more than 35 minutes Plan - Discharge Summary New Discharge Prescriptions: New Pantoprazole [Protonix] 40 mg PO DAILY #60 tab Sucralfate [Carafate] 1 gm PO BID #60 tablet Continue Cranberry Fruit Extract [Cranberry] 500 mg PO DAILY Amiodarone [Cordarone] 100 mg PO DAILY Potassium Chloride ER [K-Dur 10] 10 meq PO DAILY Metoprolol Tartrate [Lopressor] 12.5 mg PO BID Gabapentin [Neurontin] 100 mg PO HS Multivitamins, Thera [Multivitamin (formulary)] 1 tab PO DAILY Albuterol Sulfate [Ventolin HFA] 2 puff INHALATION RT-Q6H PRN PRN Reason: Shortness Of Breath Phenylephrine HCl/[place] Butter [Preparation H Suppository] 1 supp RECTAL BID PRN PRN Reason: hemorrhoid pain Artificial Tears-Hypromellose [Artificial Tear Drops] 1 drop BOTH EYES TID PRN PRN Reason: Dry Eye(S) cycloSPORINE [Restasis Multidose] 1 drop BOTH EYES BID Acetaminophen Tab [Tylenol] 500 mg PO QID@05,11,17,23 Chlorhexidine Gluconate [Peridex] 15 ml PO BID Artificial Tears-Hypromellose [Artificial Tear Drops] 1 drop BOTH EYES BID Furosemide [Lasix] 40 mg PO DAILY Hydroxychloroquine Sulfate [Plaquenil] 200 mg PO BID Phenyleph/Mineral Oil/Petrolat [Preparation H Ointment] 1 applic RECTAL DAILY PRN PRN Reason: hemorrhoid pain Menthol [[place]] 7.5 mg MM DIRECTED PRN PRN Reason: Cough Augustina-Lanta 30 ml PO Q6H PRN PRN Reason: Gi Upset Levothyroxine Sodium [Synthroid] 75 mcg PO DAILY@0500 No Action Apixaban [Eliquis] 2.5 mg PO BID Discharge Medication List Cranberry Fruit Extract [Cranberry] 500 mg PO DAILY 06/13/16 [History] Amiodarone [Cordarone] 100 mg PO DAILY 08/07/17 [History] Apixaban [Eliquis] 2.5 mg PO BID 05/10/19 [History] Metoprolol Tartrate [Lopressor] 12.5 mg PO BID 05/10/19 [History] Potassium Chloride ER [K-Dur 10] 10 meq PO DAILY 05/10/19 [History] Gabapentin [Neurontin] 100 mg PO HS 10/01/22 [History] Hydroxychloroquine Sulfate [Plaquenil] 200 mg PO BID 10/01/22 [History] Multivitamins, Thera [Multivitamin (formulary)] 1 tab PO DAILY 10/01/22 [History] Acetaminophen Tab [Tylenol] 500 mg PO QID@05,,,08/18/23 [History] Albuterol Sulfate [Ventolin HFA] 2 puff INHALATION RT-Q6H PRN 08/18/23 [History] Artificial Tears-Hypromellose [Artificial Tear Drops] 1 drop BOTH EYES BID 08/18/23 [History] Artificial Tears-Hypromellose [Artificial Tear Drops] 1 drop BOTH EYES TID PRN 08/18/23 [History] Chlorhexidine Gluconate [Peridex] 15 ml PO BID 08/18/23 [History] Furosemide [Lasix] 40 mg PO DAILY 08/18/23 [History] Augustina-Lanta 30 ml PO Q6H PRN 08/18/23 [History] Levothyroxine Sodium [Synthroid] 75 mcg PO DAILY@0500 08/18/23 [History] Menthol [[place]] 7.5 mg MM DIRECTED PRN 08/18/23 [History] Phenyleph/Mineral Oil/Petrolat [Preparation H Ointment] 1 applic RECTAL DAILY PRN 08/18/23 [History] Phenylephrine HCl/[place] Butter [Preparation H Suppository] 1 supp RECTAL BID PRN 08/18/23 [History] cycloSPORINE [Restasis Multidose] 1 drop BOTH EYES BID 08/18/23 [History] Pantoprazole [Protonix] 40 mg PO DAILY #60 tab 08/20/23 [Rx] Sucralfate [Carafate] 1 gm PO BID #60 tablet 08/20/23 [Rx] Follow up Appointment(s)/Referral(s): Rachel Bonner DO [Primary Care Provider] - 1-2 days Karyna Dover MD [STAFF PHYSICIAN] - 1 Week Carloz Quigley MD [STAFF PHYSICIAN] - 2 Weeks (your heart doctor ) Activity/Diet/Wound Care/Special Instructions: heart healthy diet activity is restricted till you see your doctor Discharge Disposition: HOME WITH HOME HEALTH SERVICES
[2023-08-20] MEDS: SUCRALFATE 1 GM TAB PO SCH (18:22)
[2023-08-20] MEDS: PANTOPRAZOLE 40 MG TABLET PO SCH (18:22)
--- NOTE | 2023-08-21 13:19 | P.DS ---
Providers Date of admission: 08/21/23 06:10 Attending physician: Kitty Martinez Consults: 08/18/23 02:58 Consult Physician Routine Consulting Provider: Norm Gonzalez Consult Reason/Comments: chest pain Do you want consulting provider notified?: Yes 08/18/23 11:29 Consult Physician Routine Consulting Provider: Karyna Dover Consult Reason/Comments: DYSPHAGIA Do you want consulting provider notified?: Yes Primary care physician: Rachel Bonner DO Hospital Course: diagnosis: Dysphagia and odynophagia, rule out esophageal stricture versus esophagitis. Status post EGD showing reflux esophagitis and about a esophageal ulcer with some bleeding. Patient needs to follow-up the biopsy as an outpatient. Atypical chest pain, cardiology cleared the patient, most likely secondary to above. Improved Chronic gastritis. History of GERD Hiatal hernia Paroxysmal A-fib on anticoagulation and rate controlled Hospital course: History of present illness; patient is a 87-year-old lady with past medical history significant for atrial fibrillation, hypertension, hypothyroidism, who presented to ER for chest pain. Patient is a resident of an ECF facility, states that she was all right yesterday when he started noticing chest pressure retrosternal in location, her pain mainly in the lower chest or epigastric region. Evaluated by veterinary surgery technologist Dr. Ramirez and thought is noncardiac and atypical chest pain with no further recommendation other than follow-up outpatient with her veterinary surgery technologist Dr. Phillip in 2 weeks and patient is agreeable Patient was on Eliquis 2.5 mg at home which was put on hold since admission. She underwent EGD today with Dr. Zelaya: 1) LA grade B erosive esophagitis with active bleeding esophageal ulcer, 1 cm x 5 mm. Biopsies obtained. 2)Biopsies obtained of the duodenum. 3) Chronic gastritis with biopsies obtained. Patient needs to follow-up the biopsy as an outpatient Patient other than that she is sitting in chair comfortable, no significant chest pain or dyspnea. No other new complaint. Family at bedside all all questions answered Patient is agreeable to go to her ECF upon discharge Patient will be discharged today after she was cleared by surgery team to go back to her ECF. Patient will be discharged on Protonix and Carafate Problems and management plan were discussed with the patient and he verbalized understanding and acceptance Patient was found stable and can be discharged home in guarded prognosis however he needs follow-up as an outpatient. Patient was instructed to follow up with PCP within one week and patient agrees Patient was instructed to follow-up with Dr. Flores in 1 to 2 weeks. per recommendation of surgery team : keep holding eliquis and all blood thinner , till see Physical exam Gen: patient is a AAOx3, no distress CVS: S1-S2, RRR, no murmur Lungs: B/L CTA, no wheezing Abdomen: soft, no distention, no tenderness, positive bowel sounds Extremity: no leg edema or induration Time spent more than 35 minutes Plan - Discharge Summary New Discharge Prescriptions: New Pantoprazole [Protonix] 40 mg PO DAILY #60 tab Sucralfate [Carafate] 1 gm PO BID #60 tablet Continue Cranberry Fruit Extract [Cranberry] 500 mg PO DAILY Amiodarone [Cordarone] 100 mg PO DAILY Potassium Chloride ER [K-Dur 10] 10 meq PO DAILY Metoprolol Tartrate [Lopressor] 12.5 mg PO BID Gabapentin [Neurontin] 100 mg PO HS Multivitamins, Thera [Multivitamin (formulary)] 1 tab PO DAILY Albuterol Sulfate [Ventolin HFA] 2 puff INHALATION RT-Q6H PRN PRN Reason: Shortness Of Breath Phenylephrine HCl/[place] Butter [Preparation H Suppository] 1 supp RECTAL BID PRN PRN Reason: hemorrhoid pain Artificial Tears-Hypromellose [Artificial Tear Drops] 1 drop BOTH EYES TID PRN PRN Reason: Dry Eye(S) cycloSPORINE [Restasis Multidose] 1 drop BOTH EYES BID Acetaminophen Tab [Tylenol] 500 mg PO QID@05,11,17,23 Chlorhexidine Gluconate [Peridex] 15 ml PO BID Artificial Tears-Hypromellose [Artificial Tear Drops] 1 drop BOTH EYES BID Furosemide [Lasix] 40 mg PO DAILY Hydroxychloroquine Sulfate [Plaquenil] 200 mg PO BID Phenyleph/Mineral Oil/Petrolat [Preparation H Ointment] 1 applic RECTAL DAILY PRN PRN Reason: hemorrhoid pain Menthol [[place]] 7.5 mg MM DIRECTED PRN PRN Reason: Cough Augustina-Lanta 30 ml PO Q6H PRN PRN Reason: Gi Upset Levothyroxine Sodium [Synthroid] 75 mcg PO DAILY@0500 No Action Apixaban [Eliquis] 2.5 mg PO BID Discharge Medication List Cranberry Fruit Extract [Cranberry] 500 mg PO DAILY 06/13/16 [History] Amiodarone [Cordarone] 100 mg PO DAILY 08/07/17 [History] Apixaban [Eliquis] 2.5 mg PO BID 05/10/19 [History] Metoprolol Tartrate [Lopressor] 12.5 mg PO BID 05/10/19 [History] Potassium Chloride ER [K-Dur 10] 10 meq PO DAILY 05/10/19 [History] Gabapentin [Neurontin] 100 mg PO HS 10/01/22 [History] Hydroxychloroquine Sulfate [Plaquenil] 200 mg PO BID 10/01/22 [History] Multivitamins, Thera [Multivitamin (formulary)] 1 tab PO DAILY 10/01/22 [History] Acetaminophen Tab [Tylenol] 500 mg PO QID@05,11,17,23 08/18/23 [History] Albuterol Sulfate [Ventolin HFA] 2 puff INHALATION RT-Q6H PRN 08/18/23 [History] Artificial Tears-Hypromellose [Artificial Tear Drops] 1 drop BOTH EYES BID 08/18/23 [History] Artificial Tears-Hypromellose [Artificial Tear Drops] 1 drop BOTH EYES TID PRN 08/18/23 [History] Chlorhexidine Gluconate [Peridex] 15 ml PO BID 08/18/23 [History] Furosemide [Lasix] 40 mg PO DAILY 08/18/23 [History] Augustina-Lanta 30 ml PO Q6H PRN 08/18/23 [History] Levothyroxine Sodium [Synthroid] 75 mcg PO DAILY@0500 08/18/23 [History] Menthol [[place]] 7.5 mg MM DIRECTED PRN 08/18/23 [History] Phenyleph/Mineral Oil/Petrolat [Preparation H Ointment] 1 applic RECTAL DAILY PRN 08/18/23 [History] Phenylephrine HCl/[place] Butter [Preparation H Suppository] 1 supp RECTAL BID PRN 08/18/23 [History] cycloSPORINE [Restasis Multidose] 1 drop BOTH EYES BID 08/18/23 [History] Pantoprazole [Protonix] 40 mg PO DAILY #60 tab 08/20/23 [Rx] Sucralfate [Carafate] 1 gm PO BID #60 tablet 08/20/23 [Rx] Follow up Appointment(s)/Referral(s): Rachel Bonner DO [Primary Care Provider] - 1-2 days Karyna Dover MD [STAFF PHYSICIAN] - 09/02/23 10:00 am Carloz Quigley MD [STAFF PHYSICIAN] - 2 Weeks (your heart doctor ) Activity/Diet/Wound Care/Special Instructions: Continue Ground Diet per surgery Hold Eliquis until ok with Dr. Dover activity is as tolerated we recommend to resume your eliquis once cleared by surgery team , and once your ulcer is healed
[2023-08-21 14:21] VITALS: BP 94/62; PULSE 78; RESP 17; TEMP 98.2
--- NOTE | 2023-08-21 16:37 | P.PN ---
Subjective Progress Note Date: 08/21/23 CHIEF COMPLAINT: Dysphagia HISTORY OF PRESENT ILLNESS: Patient is status post EGD which had revealed GERD, esophageal ulcer with bleeding, gastritis, diaphragmatic hiatal hernia and esophageal dysmotility. Patient tolerated full liquid diet. Diet was advanced to ground diet which she tolerated well. Abdominal pain improved. Denies any nausea or vomiting. PHYSICAL EXAM: VITAL SIGNS: Reviewed GENERAL: Well-developed in no acute distress. HEENT: No sclera icterus. Extraocular movements grossly intact. Moist buccal mucosa. Head is atraumatic, normocephalic. Hears conversational speech. No nasal drainage. NECK: Supple without lymphadenopathy. CHEST: Non-labored respirations and equal bilateral excursions. CARDIOVASCULAR: Palpable 2+ radial pulses. ABDOMEN: Soft. Nondistended. Nontender. MUSCULOSKELETAL: No clubbing or cyanosis. NEUROLOGIC: No focal or lateralizing signs. Cranial nerves II through XII grossly intact. PSYCH: Appropriate affect. Alert and oriented to person, place and time. SKIN: Well perfused. Good skin turgor. ASSESSMENT: Gastroesophageal reflux disease. Esophageal ulcer with bleeding Gastritis Diaphragmatic hiatal hernia Esophageal dysmotility PLAN: -Patient tolerating ground diet. She can be discharged from surgical standpoint -Recommend to continue to hold Eliquis for at least 2 weeks -Continue Protonix and Carafate at discharge Physician Meat Stocker note has been reviewed by physician. Signing provider agrees with the documented findings, assessment, and plan of care. Objective - Vital Signs Vital signs: Vital Signs Temp 98.2 F 08/21/23 13:53 Pulse 78 08/21/23 13:53 Resp 17 08/21/23 13:53 BP 94/62 08/21/23 13:53 Pulse Ox 97 08/21/23 13:53 FiO2 Intake & Output 08/20/23 08/21/23 08/21/23 18:59 06:59 18:59 Intake Total 200 240 Output Total 1250 1200 1000 Balance -1050 -1200 -760 Intake: IV 200 Oral 240 Output: Urine 1250 1200 1000 Other: Voiding Method Indwelling Catheter Indwelling Catheter Indwelling Catheter # Voids 1 # Bowel Movements 0 1 - Labs CBC & Chem 7: 08/20/23 07:05 08/20/23 07:05
--- NOTE | 2023-08-25 13:14 | CDI ---
Documentation Clarification Form Date: 08/25/2023 12:44:25 PM From: Jade Hearn RN, CCDS Email: [email or web address] Admit Date: 08/21/2023 06:10:00 AM Patient Name: Tabitha Conway Visit Number: [id number] Discharge Date: 08/21/2023 03:15:00 PM ATTENTION: The Clinical Documentation Specialists (CDI) and [facility] Coding Staff appreciate your assistance in clarifying documentation. Please respond to the clarification below the line at the bottom and electronically sign. The CDI & [facility] Coding staff will review the response and follow-up if needed. Please note: Queries are made part of the Legal Health Record. If you have any questions, please contact the author of this message via ITS. Dr. Belcher Sheet There is documentation of erosive esophagitis with bleeding and the patient was on Eliquis. Based on this information and the findings below, is there an additional diagnosis that is clinically appropriate for this patient? History/Risk Factors: A fib on Eliquis, HTN, hypothyroid. Presents with chest pain that occurs after eating. S/P EGD with noted findings of active esophageal ulcer with bleeding. Clinical Indicators: 08/19 IM: "keep holding Eliquis for now per surgery team as she has bleeding ulcer. We'll dc Aspirin and Lovenox as well." 08/19 EGD: LA grade B erosive esophagitis with active bleeding esophageal ulcer, 1 cm x 5 mm. Biopsies obtained. 08/20 Surgery: "She can be discharged from surgical standpoint. Recommend continue to hold Eliquis for at least 2 weeks. Continue Protonix and Carafate at discharge." 08/20 Discharge summary: "Patient was on Eliquis 2.5 mg at home which was put on hold since admission. Per recommendation of surgery team, keep holding Eliquis and all blood thinners." Treatment: Hold Eliquis, D/C Aspirin; s/p EGD on 08/19 with biopsies; Protonix 40mg po BID 08/19-08/20 IV Fluid: 0.9 NS @ 20mL/hr Is there an additional diagnosis that is clinically appropriate for this patient? [ x ] Bleeding esophageal ulcer due to Eliquis [ ] No additional diagnosis [ ] Other, please specify [ ] Unable to determine MTDD
== END 2023-08-21 15:15 | DRG 813 ==
LOC: EC 01:16 → 6NMEDSUR 03:00 → OBSVTOIN 08-21 06:10
PROVIDERS: ADMIT Hospitalist; ATTEND Hospitalist
PROC: 0DB98ZX Excision of Duodenum, Via Natural or Artificial Opening Endoscopic, Diagnostic (ICD-10-PCS; principal; 2023-08-21)
PROC: 0DB78ZX Excision of Stomach, Pylorus, Via Natural or Artificial Opening Endoscopic, Diagnostic (ICD-10-PCS; 2023-08-21)
PROC: 0DB58ZX Excision of Esophagus, Via Natural or Artificial Opening Endoscopic, Diagnostic (ICD-10-PCS; 2023-08-21)
DX: D68.32 Hemorrhagic disorder due to extrinsic circulating anticoagulants (principal); K22.11 Ulcer of esophagus with bleeding; I48.0 Paroxysmal atrial fibrillation; K21.9 Gastro-esophageal reflux disease without esophagitis; K22.4 Dyskinesia of esophagus; K29.80 Duodenitis without bleeding; K44.9 Diaphragmatic hernia without obstruction or gangrene; M06.9 Rheumatoid arthritis, unspecified; I10 Essential (primary) hypertension; F40.240 Claustrophobia; F32.A Depression, unspecified; E03.9 Hypothyroidism, unspecified; I25.2 Old myocardial infarction; Z79.01 Long term (current) use of anticoagulants; Z79.890 Hormone replacement therapy; Z79.899 Other long term (current) drug therapy; Z85.828 Personal history of other malignant neoplasm of skin; Z87.19 Personal history of other diseases of the digestive system; Z88.0 Allergy status to penicillin
CPT/HCPCS: 36415; 43239; 71046; 80048; 80053; 80061; 83735; 84443; 84484; 85025; 85027; 85610; 85730; 88305; 93005; 94760; 96360; 96361; 99285

== ENCOUNTER 2023-10-15 08:57 | Day surgery (SDC) | payer MEDICARE, OTHER ==
--- NOTE | 2023-10-15 09:53 | P.GSHP ---
History of Present Illness H&P Date: 10/15/23 CHIEF COMPLAINT: GERD HISTORY OF PRESENT ILLNESS: The patient is a 88-year-old female who presents reports gastroesophageal reflux disease. Upper endoscopy was offered for further evaluation and management. PAST MEDICAL HISTORY: Please see list. PAST SURGICAL HISTORY: Please see list. MEDICATIONS: Please see list. ALLERGIES: Please see list. SOCIAL HISTORY: No illicit drug use FAMILY HISTORY: No reports of Crohn disease or ulcerative colitis. REVIEW OF ORGAN SYSTEMS: CONSTITUTIONAL: No reports of fevers or chills. GI: Denies any blood in stools or constipation. PHYSICAL EXAM: VITAL SIGNS: Stable GENERAL: Well-developed and pleasant in no acute distress. HEENT: No scleral icterus. Extraocular movements grossly intact. Moist buccal mucosa. NECK: Supple without lymphadenopathy. CHEST: Unlabored respirations. Equal bilateral excursions. CARDIOVASCULAR: Regular rate and rhythm. Distal 2+ pulses. ABDOMEN: Soft, nondistended. MUSCULOSKELETAL: No clubbing, cyanosis, or edema. ASSESSMENT: 1. Gastroesophageal reflux disease PLAN: 1. Recommend proceeding with an upper endoscopy Past Medical History Past Medical History: Atrial Fibrillation, Coronary Artery Disease (CAD), Cancer, Hypertension, Myocardial Infarction (NH), Osteoarthritis (OA), Rheumatoid Arthritis (RA), Thyroid Disorder Additional Past Medical History / Comment(s): Afib RVR, NH per EKG over 40 yrs ago, bilateral lower leg/pedal edema, UTIs, diverticular disease, hypothyroid, Sjogren's syndrome, past gallbladder problems corrected with diet. NO BLOOD OR BLOOD PRODUCTS. HEMORRHOIDS, HAS PERMANENT BLADDER CATHETER, SKIN CANCER Last Myocardial Infarction Date:: over 40 yrs ago History of Any Multi-Drug Resistant Organisms: None Reported Past Surgical History: Bladder Surgery, Heart Catheterization With Stent, Hysterectomy, Joint Replacement, Tonsillectomy Additional Past Surgical History / Comment(s): R total knee arthroplasty, bladder suspension, colonoscopy, BILAT CATARACTS REMOVED WITH LENS IMPLANTS Past Anesthesia/Blood Transfusion Reactions: Motion Sickness Additional Past Anesthesia/Blood Transfusion Reaction / Comment(s): PT IS JEHOVAH WITNESS AND DOES NOT RECEIVE BLOOD OR BLOOD PRODUCTS. Pt has claustrophobia. Date of Last Stent Placement:: UNK Smoking Status: Never smoker - Past Family History Mother Family Medical History: Eye Disorder, Myocardial Infarction (NH) Additional Family Medical History / Comment(s): Mother had NH in her 60s. She was legally blind from macular degeneration. Father Family Medical History: Cancer Additional Family Medical History / Comment(s): Father from lung/laryngeal cancer with mets to brain. Medications and Allergies Home Medications Medication Instructions Recorded Confirmed Type Cranberry Fruit Extract [Cranberry] 500 mg PO DAILY 06/13/16 10/13/23 History Amiodarone [Cordarone] 100 mg PO DAILY 08/07/17 10/13/23 History Metoprolol Tartrate [Lopressor] 12.5 mg PO BID 05/10/19 10/13/23 History Potassium Chloride ER [K-Dur 10] 10 meq PO DAILY 05/10/19 10/13/23 History Hydroxychloroquine Sulfate 200 mg PO BID 10/01/22 10/13/23 History [Plaquenil] Multivitamins, Thera [Multivitamin 1 tab PO DAILY 10/01/22 10/13/23 History (formulary)] Acetaminophen Tab [Tylenol] 500 mg PO QID@05,,,08/18/23 10/13/23 History Albuterol Sulfate [Ventolin HFA] 2 puff INHALATION RT-Q6H PRN 08/18/23 10/13/23 History Artificial Tears-Hypromellose 1 drop BOTH EYES BID 08/18/23 10/13/23 History [Artificial Tear Drops] Artificial Tears-Hypromellose 1 drop BOTH EYES TID PRN 08/18/23 10/13/23 History [Artificial Tear Drops] Chlorhexidine Gluconate [Peridex] 15 ml PO BID 08/18/23 10/13/23 History Furosemide [Lasix] 60 mg PO DAILY 08/18/23 10/13/23 History Augustina-Lanta 30 ml PO Q6H PRN 08/18/23 10/13/23 History Levothyroxine Sodium [Synthroid] 75 mcg PO DAILY@0500 08/18/23 10/13/23 History Menthol [[place]] 7.5 mg MM DIRECTED PRN 08/18/23 10/13/23 History Phenyleph/Mineral Oil/Petrolat 1 applic RECTAL DAILY PRN 08/18/23 10/13/23 History [Preparation H Ointment] Phenylephrine HCl/[place] Butter 1 supp RECTAL BID PRN 08/18/23 10/13/23 History [Preparation H Suppository] cycloSPORINE [Restasis Multidose] 1 drop BOTH EYES BID 08/18/23 10/13/23 History Pantoprazole [Protonix] 40 mg PO DAILY #60 tab 08/20/23 10/13/23 Rx Sucralfate [Carafate] 1 gm PO BID #60 tablet 08/20/23 10/13/23 Rx Gabapentin [Neurontin] 100 mg PO HS #4 cap 08/21/23 10/13/23 Rx Allergies Allergy/AdvReac Type Severity Reaction Status Date / Time Penicillins Allergy Unknown Verified 10/15/23 09:48 Childhood
[2023-10-15 10:02] VITALS: TEMP 97.5
[2023-10-15] MEDS: IV FLUID CONTINUATION 1,000 ML IV ONE (10:05)
[2023-10-15] MEDS: LACTATED RINGERS 1,000 ML IV SCH (10:07)
[2023-10-15] MEDS: LIDOCAINE 1% (10MG/ML) FOR IV START INTRADERMA ONE (10:08)
[2023-10-15] MEDS ORDERED: PROPOFOL 10 MG/ML 20 ML VIAL IV ONE (11:18)
[2023-10-15] MEDS ORDERED: LIDOCAINE 1% INJ 10MG/ML (20 ML MDV) ONE (11:18)
[2023-10-15 13:12] VITALS: BP 160/76; PULSE 59; RESP 20
--- NOTE | 2023-10-21 09:23 | P.PCN ---
Date of Procedure: 10/15/23 Description of Procedure: PREOPERATIVE DIAGNOSIS: Dysphagia. History of gastric ulcer POSTOPERATIVE DIAGNOSIS: Dysphagia. History of gastric ulcer Presbyesophagus OPERATION: Esophagogastroduodenoscopy rigid [place] dilator 54 Fr over guidewire SURGEON: Karyna Dover MD ANESTHESIA: MAC. INDICATIONS: The patient is a 88-year-old female who presents with dysphagia. She reports troubles with swallowing pills along her upper throat. Upper endoscopy was offered for further diagnostic evaluation and treatment. DESCRIPTION: The patient was brought into the endoscopy suite and laid in the left lateral decubitus position. An Olympus gastroscope was carefully passed along the posterior oropharynx. Upon entry into the proximal esophagus, a mild stricture was identified consistent with hypertensive upper esophageal sphincter. No erosion were found along the distal esophagus or ulcerations. The stomach was entered and acute gastritis along the antrum with bleeding was identified. The third portion of the duodenum was unremarkable. Retroflexion of the scope confirmed Hill grade 2 lower esophageal valve without recurrent diaphragmatic hiatal hernia. A guidewire was placed through the scope into the stomach. The scope was removed. A 54-Divehi rigid dilator was placed to 45 cm from the incisors. The dilator was left in place between 2-3 minutes. The dilator and guidewire were removed. The scope was reentered along the esophagus whereby the stricture had resolved of the upper esophagus. The diaphragmatic hiatus was found at 40 cm. The squamocolumnar junction was found at 40 cm from the incisors. No full-thickness injury was found along the mucosa. The stomach was desufflated. The patient tolerated the procedure well. FINDINGS: Squamocolumnar junction 40 cm from the incisors. Diaphragmatic hiatus at 40 cm. Resolved gastric ulcers Hill grade 2 lower esophageal valve. LA grade B erosive esophagitis. Presbyesophagus with tertiary contractions consistent with RECOMMENDATIONS: Upper endoscopy as needed. Plan - Discharge Summary Discharge Rx Participant: No New Discharge Prescriptions: Continue Cranberry Fruit Extract [Cranberry] 500 mg PO DAILY Amiodarone [Cordarone] 100 mg PO DAILY Potassium Chloride ER [K-Dur 10] 10 meq PO DAILY Metoprolol Tartrate [Lopressor] 12.5 mg PO BID Multivitamins, Thera [Multivitamin (formulary)] 1 tab PO DAILY Albuterol Sulfate [Ventolin HFA] 2 puff INHALATION RT-Q6H PRN PRN Reason: Shortness Of Breath Phenylephrine HCl/[place] Butter [Preparation H Suppository] 1 supp RECTAL BID PRN PRN Reason: hemorrhoid pain Artificial Tears-Hypromellose [Artificial Tear Drops] 1 drop BOTH EYES TID PRN PRN Reason: Dry Eye(S) cycloSPORINE [Restasis Multidose] 1 drop BOTH EYES BID Acetaminophen Tab [Tylenol] 500 mg PO QID@,,, Chlorhexidine Gluconate [Peridex] 15 ml PO BID Artificial Tears-Hypromellose [Artificial Tear Drops] 1 drop BOTH EYES BID Furosemide [Lasix] 60 mg PO DAILY Pantoprazole [Protonix] 40 mg PO DAILY #60 tab Gabapentin [Neurontin] 100 mg PO HS #4 cap Doxycycline Hyclate 100 mg PO BID Hydroxychloroquine Sulfate [Plaquenil] 200 mg PO BID Phenyleph/Mineral Oil/Petrolat [Preparation H Ointment] 1 applic RECTAL DAILY PRN PRN Reason: hemorrhoid pain Menthol [[place]] 7.5 mg MM DIRECTED PRN PRN Reason: Cough Augustina-Lanta 30 ml PO Q6H PRN PRN Reason: Gi Upset Levothyroxine Sodium [Synthroid] 75 mcg PO DAILY@0500 Discontinued Sucralfate [Carafate] 1 gm PO BID #60 tablet Discharge Medication List Cranberry Fruit Extract [Cranberry] 500 mg PO DAILY 06/13/16 [History] Amiodarone [Cordarone] 100 mg PO DAILY 08/07/17 [History] Metoprolol Tartrate [Lopressor] 12.5 mg PO BID 05/10/19 [History] Potassium Chloride ER [K-Dur 10] 10 meq PO DAILY 05/10/19 [History] Hydroxychloroquine Sulfate [Plaquenil] 200 mg PO BID 10/01/22 [History] Multivitamins, Thera [Multivitamin (formulary)] 1 tab PO DAILY 10/01/22 [History] Acetaminophen Tab [Tylenol] 500 mg PO QID@,,,08/18/23 [History] Albuterol Sulfate [Ventolin HFA] 2 puff INHALATION RT-Q6H PRN 08/18/23 [History] Artificial Tears-Hypromellose [Artificial Tear Drops] 1 drop BOTH EYES BID 08/18/23 [History] Artificial Tears-Hypromellose [Artificial Tear Drops] 1 drop BOTH EYES TID PRN 08/18/23 [History] Chlorhexidine Gluconate [Peridex] 15 ml PO BID 08/18/23 [History] Furosemide [Lasix] 60 mg PO DAILY 08/18/23 [History] Augustina-Lanta 30 ml PO Q6H PRN 08/18/23 [History] Levothyroxine Sodium [Synthroid] 75 mcg PO DAILY@0500 08/18/23 [History] Menthol [[place]] 7.5 mg MM DIRECTED PRN 08/18/23 [History] Phenyleph/Mineral Oil/Petrolat [Preparation H Ointment] 1 applic RECTAL DAILY PRN 08/18/23 [History] Phenylephrine HCl/[place] Butter [Preparation H Suppository] 1 supp RECTAL BID PRN 08/18/23 [History] cycloSPORINE [Restasis Multidose] 1 drop BOTH EYES BID 08/18/23 [History] Pantoprazole [Protonix] 40 mg PO DAILY #60 tab 08/20/23 [Rx] Gabapentin [Neurontin] 100 mg PO HS #4 cap 08/21/23 [Rx] Doxycycline Hyclate 100 mg PO BID 10/15/23 [History] Follow up Appointment(s)/Referral(s): Karyna Dover MD [STAFF PHYSICIAN] - As Needed Patient Instructions/Handouts: *Surgery [facility] - (Anesthesia) Discharge Instructions Outpatient Surgery, Upper Endoscopy (DC), Esophageal Dilation (DC) Activity/Diet/Wound Care/Special Instructions: Resume Eliquis tomorrow, 10/16/23 Discharge Disposition: TRANSFER TO [facility]/F
== END 2023-10-15 13:05 ==
LOC: ORWHC2ENDO 08:57
PROVIDERS: ATTEND Surgery Plastic and Reconstructive Surgery
DX: K22.89 Other specified disease of esophagus (principal); K21.9 Gastro-esophageal reflux disease without esophagitis; E03.9 Hypothyroidism, unspecified; I10 Essential (primary) hypertension; I25.10 Atherosclerotic heart disease of native coronary artery without angina pectoris; I25.2 Old myocardial infarction; I48.91 Unspecified atrial fibrillation; E07.9 Disorder of thyroid, unspecified; M06.9 Rheumatoid arthritis, unspecified; M35.00 Sjogren syndrome, unspecified; Z79.890 Hormone replacement therapy; Z82.49 Family history of ischemic heart disease and other diseases of the circulatory system; Z85.828 Personal history of other malignant neoplasm of skin; Z88.0 Allergy status to penicillin; Z90.710 Acquired absence of both cervix and uterus; Z79.899 Other long term (current) drug therapy; Z87.11 Personal history of peptic ulcer disease; Z87.440 Personal history of urinary (tract) infections
CPT/HCPCS: 43248; J2001; J2704